=== PATIENT | male | born 1945 | race Caucasian/White ===

== ENCOUNTER → 2017-01-21 | Outpatient (CLI) | payer BC ==
[2017-01-21 18:15] LABS: ALT/SGPT 35 U/L (12-78); AST/SGOT 24 U/L (15-37); BLOOD UREA NITROGEN 9 mg/dl (7-18); BUN/CREATININE RATIO 11.7 (10-20); CALCIUM 9.3 mg/dl (8.5-10.1); CARBON DIOXIDE 30 mmol/L (21-32); CHLORIDE 100 mmol/L (98-107); CREATININE 0.81 mg/dl (0.60-1.40); GLUCOSE 85 mg/dl (70-99); HDL CHOLESTEROL 44 mg/dl; POTASSIUM 3.8 mmol/L (3.5-5.1); SODIUM 139 mmol/L (136-145)
[2017-01-21 18:18] LABS: ALB/GLOB RATIO 1.1 (0.9-2); ALKALINE PHOSPHATASE 68 U/L (45-117); CHOLESTEROL 173 mg/dl (0-200); CHOLESTEROL/HDL RATIO 3.9; LDL CHOLESTEROL CALCULATED 63 mg/dl; TRIGLYCERIDES 328 mg/dl (0-150); VERY LOW DENSITY LIPOPROT CALC 66 mg/dl
== END | disposition home or self-care (01) ==
LOC: C.LABBFT 13:36
PROVIDERS: ATTEND Internal Medicine
DX: E78.5 Hyperlipidemia, unspecified (principal)

== ENCOUNTER → 2017-07-28 | Outpatient (CLI) | payer BC ==
[2017-07-28 12:20] LABS: BASO % 0.2 %; BASO ABS # 0.01 K/uL (0-0.2); COMPLETE YES; EOS % 1.4 %; HEMATOCRIT 47.4 % (42-52); IG% 0.2 %; LYMPH ABS # 1.37 K/uL (1.2-3.4); MEAN CELL VOLUME 96.7 fL (80-100); MEAN CORPUSCULAR HEMOGLOBIN 34.3 pg (25-34); MEAN CORPUSCULAR HGB CONC 35.4 g/dl (32-36); MEAN PLATELET VOLUME 10.7 fL (7.4-10.4); MONO % 14.7 %; NEUT % 51.5 %; PLATELET COUNT 138 K/uL (130-400); WHITE BLOOD COUNT 4.28 K/uL (4.8-10.8)
[2017-07-28 12:28] LABS: ALT/SGPT 27 U/L (12-78); AST/SGOT 24 U/L (15-37); BLOOD UREA NITROGEN 12 mg/dl (7-18); BUN/CREATININE RATIO 17.8 (10-20); CALCIUM 9.2 mg/dl (8.5-10.1); CARBON DIOXIDE 29 mmol/L (21-32); CHLORIDE 102 mmol/L (98-107); CHOLESTEROL 180 mg/dl (0-200); CREATININE 0.69 mg/dl (0.60-1.40); GLUCOSE 99 mg/dl (70-99); POTASSIUM 3.8 mmol/L (3.5-5.1); SODIUM 137 mmol/L (136-145); TRIGLYCERIDES 143 mg/dl (0-150); VERY LOW DENSITY LIPOPROT CALC 29 mg/dl
[2017-07-28 12:31] LABS: ALKALINE PHOSPHATASE 69 U/L (45-117); CHOLESTEROL/HDL RATIO 3.3; HDL CHOLESTEROL 55 mg/dl; LDL CHOLESTEROL CALCULATED 96 mg/dl
== END | disposition home or self-care (01) ==
LOC: C.LABBFT 08:40
PROVIDERS: ATTEND Internal Medicine
DX: I10 Essential (primary) hypertension (principal); D72.819 Decreased white blood cell count, unspecified; E78.5 Hyperlipidemia, unspecified

== ENCOUNTER 2022-07-31 09:59 | Observation (INO) ==
--- NOTE | 2022-07-31 10:26 | Emergency Department Note ---
History of Present Illness General Chief complaint: Abdominal Pain Stated complaint: ABDOMINAL PAIN Time Seen by Provider: 07/31/22 10:13 Source: patient History of Present Illness Provider complaint: Abdominal pain Onset (ago): day(s) 2 Location: abdomen and right Radiation: non-radiation Severity: moderate Pain Consistency: + constant Maximum Pain Intensity: 7 Quality: + sharp Relieved By: + none Exacerbated By: + movement Associated symptoms: no chest pain, no cough, no fever/chills, no headaches, no nausea/vomiting or no shortness of breath This is a 76-year-old male who presents with right-sided lower abdominal pain starting 2 days ago. He describes it as intermittently sharp. It is constant. He rates it a 7 out of 10 in severity. It is worse if he moves a certain way. He denies any associated fever or vomiting. He has had no black or bloody stools or diarrhea. He denies any prior history of abdominal surgery. He has had no cough or cold symptoms, chest discomfort or pain, shortness of breath, or urinary symptoms. He has not noticed any bulges in his groin. Home Medications Medication Instructions Recorded Confirmed Type multivitamin 1 tab PO QAM 10/18/18 06/19/22 History acetaminophen 500 mg tablet 500 - 1,000 mg PO DIRECTED PRN 11/05/19 06/19/22 History FEVER/PAIN losartan 50 mg-hydrochlorothiazide 1 tab PO DAILY #90 tabs 08/14/21 06/19/22 Rx 12.5 mg tablet escitalopram oxalate 5 mg tablet 5 mg PO DAILY #90 tabs 12/03/21 06/19/22 Rx pravastatin 20 mg tablet 20 mg PO DAILY #90 tabs 12/10/21 06/19/22 Rx meclizine 12.5 mg tablet See Rx Instructions PO QID PRN 04/22/22 06/19/22 Rx dizziness #30 tabs Allergies Allergy/AdvReac Type Severity Reaction Status Date / Time lisinopril Allergy Intermediate Cough Verified 06/19/22 09:00 simvastatin Allergy Unknown CAN'T Verified 06/19/22 09:00 REMEMBER Past Med/Surg History Medical History 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., 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 INTERVENTION) Depression Hearing deficit BILATERAL AIDES Hyperlipidemia Hypertension Surgical History History of cataract surgery (~10/26/18) RIGHT CATARACT: 2mg of versed and 100mcg of fentanyl was given without apparent complications History of left cataract surgery (~11/16/18) Hx of LASIK Family History Sister Stroke Mother Stroke Sister Stroke Shingles Father Lung disease Son Diabetes Denies family history of Ovarian cancer Prostate cancer Myocardial infarction Breast cancer Colorectal cancer Social History Smoking Status: Never smoker Tobacco Type: Smokeless Tobacco (Dip or Chew) Second Hand Exposure: No; Hx Alcohol Use: Yes Alcohol type: beer Alcohol Intake Frequency: 4 or More x per/Week Alcohol Intake Frequency Comment: 2-3 beers or shot of yasmine carla per day Hx Substance Use: No Preferred Language: Montserratian Communication Ability: Effective Visual Impairment: No Limitations Hearing Ability: Use of Hearing Aid Business Specialist Required: No Beliefs That Will Affect Care: None marital status: Current Living Situation: Spouse current occupational status: retired current occupation: used to work at [employer] Feels Safe at Home: Yes Childhood Exposure to Second-Hand Smoke: Yes Diet Comment: primarily gluten free due to his 's diet Dental Care, Regularly: No Physical Activity Frequency: Does not Exercise Seatbelt Use: always Sunscreen Use: No Assistive Devices: Denture - Upper, Glasses and Hearing Aid - Bilateral Review of Systems See HPI for pertinent positives & negatives. and A total of 10 systems reviewed and were otherwise negative Physical Exam Vital Signs Vital Signs - 24 hr 07/31/22 10:05 07/31/22 10:34 07/31/22 11:41 Temperature 36.9 C Temperature Source Temporal Artery Scan Pulse Rate 84 Pulse Rate [Radial] 61 Pulse Rhythm [Radial] Pulse Strength [Radial] Respiratory Rate 18 16 Respiratory Effort / Characteristics Non-Labored Spontaneous Respiratory Depth Normal Respiratory Pattern Regular Blood Pressure 114/76 Blood Pressure [Left Arm] 145/76 H Blood Pressure Mean 88 Blood Pressure Mean [Left Arm] 99 Blood Pressure Position [Left Arm] Lying Pulse Oximetry 93 94 Oxygen Delivery Method Room Air Room Air Room Air Sepsis Recent Fever Within 48 Hours No Sepsis New/Unexplained Change in Mental Status No Sepsis Action Taken by Nursing No Action Required 07/31/22 13:44 07/31/22 13:48 Temperature 37.5 C Temperature Source Oral Pulse Rate 69 Pulse Rate [Radial] 70 Pulse Rhythm [Radial] Regular Pulse Strength [Radial] Normal Respiratory Rate 16 18 Respiratory Effort / Characteristics Non-Labored Spontaneous Respiratory Depth Normal Respiratory Pattern Blood Pressure 136/73 Blood Pressure [Left Arm] 125/73 Blood Pressure Mean Blood Pressure Mean [Left Arm] 90 Blood Pressure Position [Left Arm] Sitting Pulse Oximetry 91 95 Oxygen Delivery Method Room Air Room Air Sepsis Recent Fever Within 48 Hours Sepsis New/Unexplained Change in Mental Status Sepsis Action Taken by Nursing Constitutional: Vital signs reviewed. Eyes: Pupils are equal round reactive to light. Conjunctiva are noninjected. ENT: Pharynx is clear without erythema or exudate. Mucous membranes are moist. Neck supple without meningeal signs. Respiratory: Clear to auscultation bilaterally. Breath sounds are equal bilaterally. Cardiovascular: Regular rate and rhythm. No rubs or gallops. GI: Soft, nondistended with right lower quadrant tenderness. No guarding. No right inguinal hernia. Negative Rovsing sign. Bowel sounds are present. Musculoskeletal: No peripheral edema. No lower extremity tenderness. Integumentary: No cyanosis. or jaundice. Neurological: The patient is awake and alert. No focal deficits except hard of hearing. Psychiatric: Normal affect. Not anxious appearing. Course Administered Medications Discontinued Medications Fentanyl Citrate (Fentanyl Citrate 100 Mcg/2 Ml Vial) 50 mcg IV NOW STA Stop: 07/31/22 13:11 Last Admin: 07/31/22 13:22 Dose: 50 mcg Documented By: SHERIF Piperacillin Sod/Tazobactam Sod (Zosyn) 4.5 gm in 120 mls @ 240 mls/hr IV NOW ONE Stop: 07/31/22 12:55 Last Infusion: 07/31/22 13:26 Dose: 0 mls/hr Documented By: Admin: 07/31/22 12:55 Dose: 240 mls/hr Documented By: LIZBET Ioversol (Optiray 300 100ml) 94 ml IV ONCE ONE Stop: 07/31/22 11:38 Last Admin: 07/31/22 11:38 Dose: 94 ml Documented By: PATRICK Ondansetron HCl (Ondansetron Inj 2 Mg/Ml 2 Ml Vial) 4 mg IV NOW STA Stop: 07/31/22 13:11 Last Admin: 07/31/22 13:22 Dose: 4 mg Documented By: SHERIF Medical Decision Making Differential Diagnosis Abdominal mass, appendicitis, perforation, abscess, IBS, pancreatitis Medical Records Attestation: I reviewed the patient's medical records. I did perform a limited focused review of portions of the patient's old chart o n the electronic medical record. The patient has had no recent pertinent visits to this hospital. Home Medications Current Medication List: was personally reviewed by me Laboratory Data Attestation: I reviewed the patient's lab results. Result diagrams: 07/31/22 10:30 07/31/22 10:30 Lab Results 07/31/22 07/31/22 07/31/22 Range/Units 10:30 10:30 10:30 WBC 12.64 H (4.8-10.8) K/ul RBC 4.64 (4.63-6.08) M/uL Hgb 15.8 (14.0-18.0) g/dl Hct 44.5 (40.1-51.0) % MCV 95.9 (80.0-100.0) fL MCH 34.1 H (25.0-34.0) pg MCHC 35.5 (32.0-36.0) g/dL RDW Std Deviation 42.2 (36.4-46.3) fL RDW Coeff of Val 12.2 (11.5-14.5) % Plt Count 133 (130-400) K/uL MPV 10.4 (9.4-12.4) fL Immature Gran % (Auto) 0.3 % Neut % (Auto) 75.7 % Lymph % (Auto) 9.8 % Wood[place] % (Auto) 13.9 % Eos % (Auto) 0.1 % Baso % (Auto) 0.2 % Neut # (Auto) 9.56 H (1.4-6.5) K/uL Lymph # (Auto) 1.24 (1.2-3.4) K/uL Woodward # (Auto) 1.76 H (0.24-0.82) K/uL Eos # (Auto) 0.01 (0-0.50) K/uL Baso # (Auto) 0.03 (0-0.2) K/uL Immature Gran # (Auto) 0.04 H (0.00-0.02) K/uL Sodium 131 L (136-145) mmol/L Potassium 3.7 (3.5-5.1) mmol/L Chloride 98 (98-107) mmol/L Carbon Dioxide 26 (21-32) mmol/L Anion Gap 7 (3-11) BUN 9 (6-23) mg/dl Creatinine 0.66 (0.6-1.4) mg/dl Est Cr Clr Drug Dosing 92.2 ml/min Est GFR ( Amer) 107.3 ml/min Est GFR (Non-Af Amer) 92.6 ml/min BUN/Creatinine Ratio 13.6 (10-20) Glucose 117 H (70-99(Fasting)) mg/dl Calcium 9.1 (8.5-10.1) mg/dl Total Bilirubin 2.4 H (0.2-1.0) mg/dl AST 16 (13-39) U/L ALT 12 (7-52) U/L Alkaline Phosphatase 49 (34-104) U/L Total Protein 6.4 (6.0-8.3) gm/dl Albumin 3.8 (3.4-5.0) gm/dl Globulin 2.6 (2.5-4.0) gm/dl Albumin/Globulin Ratio 1.5 (0.9-2) Lipase 12 (11-82) U/L Urine Color Urine Appearance (Clear) Urine pH (4.5-7.5) Ur Specific [place] (1.000-1.030) Urine Protein (Negative) Urine Glucose (UA) (Negative) Urine Ketones (Negative) Urine Blood (Negative) Urine Nitrite (Negative) Urine Bilirubin (Negative) Urine Urobilinogen (Negative) Ur Leukocyte Esterase (Negative) SARS-CoV-2, RNA, NAAT NEGATIVE (NEGATIVE) 07/31/22 Range/Units 11:50 WBC (4.8-10.8) K/ul RBC (4.63-6.08) M/uL Hgb (14.0-18.0) g/dl Hct (40.1-51.0) % MCV (80.0-100.0) fL MCH (25.0-34.0) pg MCHC (32.0-36.0) g/dL RDW Std Deviation (36.4-46.3) fL RDW Coeff of Val (11.5-14.5) % Plt Count (130-400) K/uL MPV (9.4-12.4) fL Immature Gran % (Auto) % Neut % (Auto) % Lymph % (Auto) % Woodward % (Auto) % Eos % (Auto) % Baso % (Auto) % Neut # (Auto) (1.4-6.5) K/uL Lymph # (Auto) (1.2-3.4) K/uL Woodward # (Auto) (0.24-0.82) K/uL Eos # (Auto) (0-0.50) K/uL Baso # (Auto) (0-0.2) K/uL Immature Gran # (Auto) (0.00-0.02) K/uL Sodium (136-145) mmol/L Potassium (3.5-5.1) mmol/L Chloride (98-107) mmol/L Carbon Dioxide (21-32) mmol/L Anion Gap (3-11) BUN (6-23) mg/dl Creatinine (0.6-1.4) mg/dl Est Cr Clr Drug Dosing ml/min Est GFR ( Amer) ml/min Est GFR (Non-Af Amer) ml/min BUN/Creatinine Ratio (10-20) Glucose (70-99(Fasting)) mg/dl Calcium (8.5-10.1) mg/dl Total Bilirubin (0.2-1.0) mg/dl AST (13-39) U/L ALT (7-52) U/L Alkaline Phosphatase (34-104) U/L Total Protein (6.0-8.3) gm/dl Albumin (3.4-5.0) gm/dl Globulin (2.5-4.0) gm/dl Albumin/Globulin Ratio (0.9-2) Lipase (11-82) U/L Urine Color Yellow Urine Appearance Clear (Clear) Urine pH 8.0 H (4.5-7.5) Ur Specific [place] 1.036 H (1.000-1.030) Urine Protein Negative (Negative) Urine Glucose (UA) Negative (Negative) Urine Ketones Negative (Negative) Urine Blood Negative (Negative) Urine Nitrite Negative (Negative) Urine Bilirubin Negative (Negative) Urine Urobilinogen Negative (Negative) Ur Leukocyte Esterase Negative (Negative) SARS-CoV-2, RNA, NAAT (NEGATIVE) Imaging Data Radiologist's Impression: Abdomen/Pelvis CT 07/31/22 10:[address] WITH IV CONTRAST CT DOSE: 344.87 mGy.cm HISTORY: Right lower quadrant abdominal pain. TECHNIQUE: Multiaxial CT images of the abdomen and pelvis were performed following the use of intravenous contrast. A dose lowering technique was utilized adhering to the principles of ALARA. COMPARISON STUDY: None. FINDINGS: There are few bibasilar linear densities consistent with subsegmental atelectasis. No pneumoperitoneum. No pneumatosis. 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 No fractures within the visualized osseous structures. The ascending thoracic aorta measures up to 4.7 cm in diameter. The heart is mildly enlarged. Tiny fat-containing umbilical hernia. There are few punctate gallstones. No gallbladder wall thickening. The liver demonstrates mild fatty change. The pancreas, spleen, and adrenal glands are unremarkable. The left kidney enhances normally. There are 2 subcentimeter hypodense lesions within the right kidney which are technically too small to characterize but statistically represent cysts. No hydronephrosis. Mild urothelial thickening within the mid to distal right ureter which is likely reactive. Mild bladder wall thickening likely due to chronic outlet obstruction from the enlarged prostate gland. The main portal vein is patent. Moderate calcified plaque within the tortuous but normal caliber abdominal aorta. No retroperitoneal lymphadenopathy. Colonic diverticulosis. No evidence for acute diverticulitis. Moderate well-formed stool seen within the colon. The appendix is distended and filled with fluid with thickening and enhancement of the wall as well as periappendiceal fat stranding. Findings are consistent with acute appendicitis. There appears to be an associated multilocular fluid collection at the expected location of the distal appendix with a few separate collections measuring up to 1.6 cm in diameter. These favor small multiloculated abscesses in the setting of a perforated appendicitis. No extraluminal gas identified at this time. An underlying mucocele could also a similar appearance but is considered less likely. IMPRESSION: 1. Acute appendicitis. There are few small peripheral enhancing fluid collections at the location of the distal appendix which measure up to 1.6 cm. This favors small multiloculated abscesses in the setting of a perforated acute appendicitis. An underlying mucocele could also have a similar appearance but is considered less likely. 2. Colonic diverticulosis. No evidence for acute diverticulitis. 3. Cholelithiasis. 4. Hepatic steatosis. 5. Aneurysmal dilatation of the ascending thoracic aorta measuring up to 4.7 cm in diameter. 6. Prostatomegaly. 7. Additional findings as described above. ACT 112: Negative or not required by law. Electronically signed by: Mane Serrano M.D. 07/31/2022 12:00 PM MDM Narrative I did evaluate the patient as noted above. The patient is presenting with right lower quadrant pain for the past 2 days. He is tender to the right lower quadrant. No inguinal hernias are noted. He declines any pain medication. IV access was established. I did place an order for continuous cardiac monitoring. The monitor showed normal sinus rhythm at a rate of 83 bpm. He was made NPO. I did order a urine analysis. I did order and review the patient's blood work as noted in the electronic medical record. His white blood cell count slightly elevated 12.6. He is not anemic or thrombocytopenic. CMP is remarkable for a sodium of 131. He does have chronic hyponatremia. His last sodium was 132 last month. Screening for COVID-19 is negative. I did order a CT of the abdomen and pelvis. I did review the images myself as well as the radiology report as described above. CT does demonstrate acute appendicitis with perforation and small multiloculated abscesses measuring up to 1.6 cm. He also has an abdominal aortic aneurysm and other incidental findings. I did treat the patient with Zosyn IV. I did discuss the test results with the patient and his . They were given a copy of the CT scan so that they can discuss further incidental findings with her PCP. I did treat the patient with IV fentanyl. I did discuss the case with the surgical service, Dr. Daniels. He was taken to the operating room for surgical management. Impression & Plan Acute appendicitis, Aneurysm of ascending aorta, Chronic hyponatremia Discharge Plan Visit Data Chief Complaint: Abdominal Pain Stated Complaint: ABDOMINAL PAIN ED Provider: Fitz Estrada Discharge Problem: Acute appendicitis, Aneurysm of ascending aorta, Chronic hyponatremia Patient Disposition: Being Evaluated by Surgeon Discharge Instructions Interventions: ED Discharge Assessment Last Done: 07/31/22 13:44 Forms Stand Alone Forms: My [facility] Protection Plus Prescriptions Prescriptions: No Action losartan-hydrochlorothiazide 50-12.5 mg tablet 1 tab PO DAILY Qty: 90 3RF Rx Instructions: for blood pressure pravastatin 20 mg tablet 20 mg PO DAILY Qty: 90 3RF meclizine 12.5 mg tablet See Rx Instructions PO QID PRN (Reason: dizziness) Qty: 30 2RF Rx Instructions: 1 or 2 tabs PO four times daily PRN; acetaminophen 500 mg tablet 500 - 1,000 mg PO DIRECTED PRN (Reason: FEVER/PAIN) escitalopram oxalate 5 mg tablet 5 mg PO DAILY Qty: 90 3RF multivitamin Tablet 1 tab PO QAM Referrals Referrals: Danny Tucker III, MD [Primary Care Provider] - : Acute appendicitis Qualifiers: Acute appendicitis type: with localized peritonitis Appendicitis gangrene presence: without gangrene Appendicitis perforation presence: with perforation Appendicitis abscess presence: with abscess Qualified Code(s): K35.33 - Acute appendicitis with perforation and localized peritonitis, with abscess
[2022-07-31 11:01] LABS: Hematocrit (blood only) 44.5 % (40.1-51.0); Hemoglobin 15.8 g/dl (14.0-18.0); Mean Corpuscular Hemoglobin 34.1 pg (25.0-34.0); Mean Corpuscular Hgb Conc 35.5 g/dL (32.0-36.0); Mean Corpuscular Volume 95.9 fL (80.0-100.0); Mean Platelet Volume 10.4 fL (9.4-12.4); Platelet Count 133 K/uL (130-400); RDW Coefficient of Variation 12.2 % (11.5-14.5); RDW Standard Deviation 42.2 fL (36.4-46.3); Red Blood Count 4.64 M/uL (4.63-6.08); White Blood Count 12.64 K/ul (4.8-10.8)
[2022-07-31 11:10] LABS: Basophils # (auto) 0.03 K/uL (0-0.2); Basophils % (auto) 0.2 %; Eosinophils # (auto) 0.01 K/uL (0-0.50); Eosinophils % (auto) 0.1 %; Immature Granulocytes # (auto) 0.04 K/uL (0.00-0.02); Immature Granulocytes % (auto) 0.3 %; Lymphocytes # (auto) 1.24 K/uL (1.2-3.4); Lymphocytes % (auto) 9.8 %; Monocytes # (auto) 1.76 K/uL (0.24-0.82); Monocytes % (auto) 13.9 %; Neutrophils # (auto) 9.56 K/uL (1.4-6.5); Neutrophils % (auto) 75.7 %
[2022-07-31 11:18] LABS: Albumin Globulin Ratio 1.5 (0.9-2); Albumin Level 3.8 gm/dl (3.4-5.0); BUN Creatinine Ratio 13.6 (10-20); Bilirubin,Total 2.4 mg/dl (0.2-1.0); Calcium 9.1 mg/dl (8.5-10.1); Creatinine Clr Calc Pharmacy 92.2 ml/min; Est GFR (African American) 107.3 ml/min; Est GFR (Non-African American) 92.6 ml/min; Globulin 2.6 gm/dl (2.5-4.0); Potassium 3.7 mmol/L (3.5-5.1); Total Protein 6.4 gm/dl (6.0-8.3)
[2022-07-31] MEDS ORDERED: OPTIRAY 300 100mL IV ONE (11:37)
--- NOTE | 2022-07-31 12:02 | CT Scan Report ---
ABDOMEN AND PELVIS CT WITH IV CONTRAST CT DOSE: 344.87 mGy.cm HISTORY: Right lower quadrant abdominal pain. TECHNIQUE: Multiaxial CT images of the abdomen and pelvis were performed following the use of intrave nous contrast. A dose lowering technique was utilized adhering to the principles of ALARA. COMPARISON STUDY: None. FINDINGS: There are few bibasilar linear densities consistent with subsegmental atelectasis. No pneum operitoneum. No pneumatosis. 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 No f ractures within the visualized osseous structures. The ascending thoracic aorta measures up to 4.7 cm in diameter. The heart is mildly enlarged. Tiny fat-containing umbilical hernia. There are few punct ate gallstones. No gallbladder wall thickening. The liver demonstrates mild fatty change. The pancrea s, spleen, and adrenal glands are unremarkable. The left kidney enhances normally. There are 2 subcen timeter hypodense lesions within the right kidney which are technically too small to characterize but statistically represent cysts. No hydronephrosis. Mild urothelial thickening within the mid to dista l right ureter which is likely reactive. Mild bladder wall thickening likely due to chronic outlet ob struction from the enlarged prostate gland. The main portal vein is patent. Moderate calcified plaque within the tortuous but normal caliber abdominal aorta. No retroperitoneal lymphadenopathy. Colonic diverticulosis. No evidence for acute diverticulitis. Moderate well-formed stool seen within the colo n. The appendix is distended and filled with fluid with thickening and enhancement of the wall as wel l as periappendiceal fat stranding. Findings are consistent with acute appendicitis. There appears to be an associated multilocular fluid collection at the expected location of the distal appendix with a few separate collections measuring up to 1.6 cm in diameter. These favor small multiloculated absce sses in the setting of a perforated appendicitis. No extraluminal gas identified at this time. An und erlying mucocele could also a similar appearance but is considered less likely. IMPRESSION: 1. Acute appendicitis. There are few small peripheral enhancing fluid collections at the location of the distal appendix which measure up to 1.6 cm. This favors small multiloculated abscesses in the set ting of a perforated acute appendicitis. An underlying mucocele could also have a similar appearance but is considered less likely. 2. Colonic diverticulosis. No evidence for acute diverticulitis. 3. Cholelithiasis. 4. Hepatic steatosis. 5. Aneurysmal dilatation of the ascending thoracic aorta measuring up to 4.7 cm in diameter. 6. Prostatomegaly. 7. Additional findings as described above. ACT 112: Negative or not required by law. Electronically signed by: Mane Serrano M.D. 07/31/2022 12:00 PM
[2022-07-31 12:09] LABS: Appearance Urine Clear (Clear); Bilirubin Urine Negative (Negative); Blood Urine Negative (Negative); Color Urine Yellow; Glucose Urine UA Negative (Negative); Ketones Urine Negative (Negative); Leukocyte Esterase Urine Negative (Negative); Nitrite Urine Negative (Negative); Protein Urine Negative (Negative); Specific Gravity Urine 1.036 (1.000-1.030); Urobilinogen Urine Negative (Negative)
[2022-07-31] MEDS ORDERED: PIPERACILLIN/TAZOBACTAM 4.5 GM/120 ML BAG IV ONE (12:26)
[2022-07-31] MEDS ORDERED: fentaNYL citrate 100 MCG/2 ML VIAL IV STA (13:10)
[2022-07-31] MEDS ORDERED: ONDANSETRON INJ 2 MG/ML 2 ML VIAL IV STA (13:10)
--- NOTE | 2022-07-31 13:24 | History & Physical Report ---
Date of Service July 31, 2022 Assessment & Plan (1) Acute appendicitis: Plan: Perforation with small abscess. Will plan for laparoscopic appendectomy, possible open. Zosyn was given in the ED. History of Present Illness Primary Care Provider: Danny Tucker MD 76 y/o male with abdominal pain that began 2 days ago. Increasing pain caused him to come to the ED. No previous abdominal surgery. No fevers or chills. Nausea, no vomiting. Allergies Allergy/AdvReac Type Severity Reaction Status Date / Time lisinopril Allergy Intermediate Cough Verified 06/19/22 09:00 simvastatin Allergy Unknown CAN'T Verified 06/19/22 09:00 REMEMBER Home Medications Medication Instructions Recorded Confirmed Type multivitamin 1 tab PO QAM 10/18/18 06/19/22 History acetaminophen 500 mg tablet 500 - 1,000 mg PO DIRECTED PRN 11/05/19 06/19/22 History FEVER/PAIN losartan 50 mg-hydrochlorothiazide 1 tab PO DAILY #90 tabs 08/14/21 06/19/22 Rx 12.5 mg tablet escitalopram oxalate 5 mg tablet 5 mg PO DAILY #90 tabs 12/03/21 06/19/22 Rx pravastatin 20 mg tablet 20 mg PO DAILY #90 tabs 12/10/21 06/19/22 Rx meclizine 12.5 mg tablet See Rx Instructions PO QID PRN 04/22/22 06/19/22 Rx dizziness #30 tabs Past Med/Surg History Medical History 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., NO SURGICAL INTERVENTION) Depression Hearing deficit BILATERAL AIDES Hyperlipidemia Hypertension Surgical History History of cataract surgery (~10/26/18) RIGHT CATARACT: 2mg of versed and 100mcg of fentanyl was given without apparent complications History of left cataract surgery (~11/16/18) Hx of LASIK Family History Sister Stroke Mother Stroke Sister Stroke Shingles Father Lung disease Son Diabetes Denies family history of Ovarian cancer Prostate cancer Myocardial infarction Breast cancer Colorectal cancer Social History Smoking Status: Never smoker Tobacco Type: Smokeless Tobacco (Dip or Chew) Second Hand Exposure: No; Hx Alcohol Use: Yes Alcohol type: beer Alcohol Intake Frequency: 4 or More x per/Week Alcohol Intake Frequency Comment: 2-3 beers or shot of yasmine carla per day Hx Substance Use: No Preferred Language: Kiswahili Communication Ability: Effective Visual Impairment: No Limitations Hearing Ability: Use of Hearing Aid Courtesy Clerk Required: No Beliefs That Will Affect Care: None marital status: Current Living Situation: Spouse current occupational status: retired current occupation: used to work at [employer] Feels Safe at Home: Yes Childhood Exposure to Second-Hand Smoke: Yes Diet Comment: primarily gluten free due to his 's diet Dental Care, Regularly: No Physical Activity Frequency: Does not Exercise Seatbelt Use: always Sunscreen Use: No Assistive Devices: Denture - Upper, Glasses and Hearing Aid - Bilateral Review of Systems Constitutional: no fever and no chills Respiratory: no cough and no dyspnea Cardiovascular: no chest pain and no dyspnea Gastrointestinal: + abdominal pain, + bloating and + nausea; no vomiting Physical Exam Constitutional: WD/WN, vitals as above Respiratory: normal respiratory effort, lungs clear to auscultation Cardiovascular: RRR, no murmur, no edema Gastrointestinal (Abdomen): Inspection/Auscultation: + abdomen distended (slight) Percussion/Palpation: + abdomen tender (RLQ), + guarding and abdomen soft Results & Data Results & Data ([facility]) Vital Signs (Past 12 Hours) Vital Signs Temp Pulse Pulse Resp BP BP Pulse Ox 07/31/22 11:41 61 16 145/76 H 94 07/31/22 10:34 07/31/22 10:05 36.9 C 84 18 114/76 93 O2 Del Method 07/31/22 11:41 Room Air 07/31/22 10:34 Room Air 07/31/22 10:05 Room Air Supervising Physician Co-Signing Physician Notes As per Luis Daniel heath The patient is about a 3-day history of abdominal pain and actually migrated towards right lower quadrant his insisted to come in and be evaluated CT scan found compatible with acute appendicitis possible small loculation possible abscess The CT scan raises possibility of mucocele this is interesting since I operated on his 17 years ago for the same pathology He had some they ate at 730 this morning and tolerated that well The abdomen softly distended he does have generalized guarding but significant rebound tenderness or right lower quadrant there are no hernias appreciated is a patient stated that the pain may have started when she was lifting some logs We will proceed with surgery laparoscopic appendectomy possible open risk and complication were explained to the patient and his and they would like to proceed accordingly He had an EKG about a year ago we will try to get another one preop although he has had no cardiac history All question answered PG Care Time/CCT Total # of Minutes Spent Total Time Spent with Patient: Total time spent is greater than 50% in coordination of care (as documented) at patient's floor/unit and/or counseling patient: Coding Level of Care Code None Diagnoses Acute appendicitis K35.80
[2022-07-31] MEDS ORDERED: SUCCINYLCHOLINE CHLORIDE 20 MG/ML 10 ML VIAL IV ONE (13:27)
[2022-07-31] MEDS ORDERED: GLYCOPYRROLATE 0.2 MG/ML VIAL ONE ×2 (13:28→14:35)
[2022-07-31] MEDS ORDERED: PROPOFOL IV EMULSION 10 MG/ML 20 ML VIAL IV ONE (13:28)
[2022-07-31] MEDS ORDERED: fentaNYL citrate 100 MCG/2 ML VIAL ONE ×2 (13:28→14:58)
[2022-07-31] MEDS ORDERED: ROCURONIUM BROMIDE 10 MG/ML 5 ML VIAL IV ONE (13:28)
[2022-07-31] MEDS ORDERED: ONDANSETRON INJ 2 MG/ML 2 ML VIAL ONE (13:28)
[2022-07-31] MEDS ORDERED: DEXAMETHASONE SOD INJ 4 MG/ML VIAL ONE (13:28)
[2022-07-31] MEDS ORDERED: SUGAMMADEX SODIUM 200 MG/2 ML VIAL IV ONE (13:50)
[2022-07-31] MEDS ORDERED: LIDOCAINE 1%/EPINEPHRINE 1:100,000 50 ML VIAL ONE (14:20)
[2022-07-31] MEDS ORDERED: ATROPINE SULFATE 0.1 MG/ML 10ML SYR IV PRN (14:41)
[2022-07-31] MEDS ORDERED: HYDROmorphone INJ 2 MG/ML SYR/VIAL IV PRN (14:41)
[2022-07-31] MEDS ORDERED: ePHEDrine sulfate 50 MG/ML AMP IV PRN (14:41)
[2022-07-31] MEDS ORDERED: ONDANSETRON INJ 2 MG/ML 2 ML VIAL IV PRN ×2 (14:41→17:47)
[2022-07-31] MEDS ORDERED: fentaNYL citrate 100 MCG/2 ML VIAL IV PRN (14:41)
--- NOTE | 2022-07-31 14:41 | Anesthesiology Consultation ---
Date of Service July 31, 2022 Assessment & Plan ASA [id number] Proposed Anesthesia Anesthesia Type: General Risk / Benefits Reviewed With: PT / POA / Parent / Guardian, Accepts Plan and Informed Consent Obtained History Surgery Operation Date: 07/31/22 11:20 Proposed Procedures p Laparoscopic Appendectomy Possible Open - Nasim Rick MD, FACS Height/Weight Height: 5 ft 9 in Weight: 78 kg Allergies Allergy/AdvReac Type Severity Reaction Status Date / Time lisinopril Allergy Intermediate Cough Verified 06/19/22 09:00 simvastatin Allergy Unknown CAN'T Verified 06/19/22 09:00 REMEMBER Medications Home Medications Medication Instructions Recorded Confirmed Last Taken multivitamin 1 tab PO QAM 10/18/18 06/19/22 02/10/21 acetaminophen 500 mg tablet 500 - 1,000 mg PO DIRECTED PRN 11/05/19 06/19/22 Unknown FEVER/PAIN losartan 50 mg-hydrochlorothiazide 1 tab PO DAILY #90 tabs 08/14/21 06/19/22 Unknown 12.5 mg tablet escitalopram oxalate 5 mg tablet 5 mg PO DAILY #90 tabs 12/03/21 06/19/22 Unknown pravastatin 20 mg tablet 20 mg PO DAILY #90 tabs 12/10/21 06/19/22 Unknown meclizine 12.5 mg tablet See Rx Instructions PO QID PRN 04/22/22 06/19/22 Unknown dizziness #30 tabs NPO Date Last Intake of Fluids: 07/31/22 Time Last Intake of Fluids: 08:00 Date Last Intake of Solids: 07/31/22 Time Last Intake of Solids: 08:00 Past Medical History Medical History 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., NO SURGICAL INTERVENTION) Depression Hearing deficit BILATERAL AIDES Hyperlipidemia Hypertension Exercise / Class Metabolic Activity II 4-5 Yardwork/Stairs/Walk up hill Past Family History Family History Sister Stroke Mother Stroke Sister Stroke Shingles Father Lung disease Son Diabetes Denies family history of Ovarian cancer Prostate cancer Myocardial infarction Breast cancer Colorectal cancer Past Surgical History Surgical History History of cataract surgery (~10/26/18) RIGHT CATARACT: 2mg of versed and 100mcg of fentanyl was given without apparent complications History of left cataract surgery (~11/16/18) Hx of LASIK Past Anesthesia History No Hx of Anesthesia Complications and No Family Hx of Anesthesia Complications History of PONV No Hx of PONV and No Hx of Motion Sickness Social History Smoking Status: Never smoker tobacco type: smokeless tobacco Hx Alcohol Use: Yes Alcohol type: beer alcohol intake frequency: a few times a week Hx Substance Use: No substance use type: does not use Review of Systems denies fever/cough/ colds/ chest pain/ SOB/ ROXANNE denies ROXANNE Physical Exam Vital Signs Last Vital Signs Temp 37.5 C 07/31/22 13:48 Pulse 70 07/31/22 13:48 Resp 18 07/31/22 13:48 BP 125/73 07/31/22 13:48 Pulse Ox 95 07/31/22 13:48 O2 Del Method 07/31/22 13:48 ENMT Mouth: no TMJ abnormality and no dentition abnormality Thyromental Distance: > or= 3.5 Finger Breadths Mallampati Class: II Neck + facial hair; neck extension not limited Respiratory normal respiratory effort; no respiratory distress Auscultation: lungs clear to auscultation bilaterally Cardiovascular Rate/Rhythm: regular rate and regular rhythm Neurologic moves all extremities Psychiatric Orientation: alert and oriented x 3 Testing Laboratory Results 07/31/22 10:30 07/31/22 10:30 Urine Color Yellow 07/31/22 11:50 Urine Appearance Clear (Clear) 07/31/22 11:50 Urine pH 8.0 (4.5-7.5) H 07/31/22 11:50 Ur Specific [place] 1.036 (1.000-1.030) H 07/31/22 11:50 Urine Protein Negative (Negative) 07/31/22 11:50 Urine Glucose (UA) Negative (Negative) 07/31/22 11:50 Urine Ketones Negative (Negative) 07/31/22 11:50 Urine Nitrite Negative (Negative) 07/31/22 11:50 Ur Leukocyte Esterase Negative (Negative) 07/31/22 11:50
[2022-07-31] MEDS ORDERED: PHENYLEPHRINE 100MCG/ML 5ML SYR ONE (14:54)
--- NOTE | 2022-07-31 16:01 | Post Operative Brief Note ---
PG Immediate Post Op with CF Date of Surgery July 31, 2022 Pre & Post Diagnosis Operation Date: 07/31/22 11:20 Pre-Op Diagnosis: Acute appendicitis Post-Op Diagnosis: Acute Ruptured appendicitis I identified the patient and participated in the time-out.: Yes Procedure Operation Date: 07/31/22 11:20 Actual Procedures p Laparoscopic Appendectomy and Abdominal washout(Not Applicable) - Nasim Rick MD, FACS Surgeon Nasim Rick MD, FACS Religion Instructor B ling heath Estimated Blood Loss 150 Findings Consistent with Post-Op Diagnosis Specimens Specimen Description: A. Appendix Culture 1. Appendix Culture Drains Star Drain (19 Israeli)
--- NOTE | 2022-07-31 16:27 | Operative Report ---
PG Post Operative Report Pre & Post Diagnosis Operation Date: 07/31/22 11:20 Pre-Op Diagnosis: Acute appendicitis Post-Op Diagnosis: Acute Ruptured appendicitis I identified the patient and participated in the time-out.: Yes Procedure Operation Date: 07/31/22 11:20 Actual Procedures p Laparoscopic Appendectomy and Abdominal washout(Not Applicable) - Nasim Rick MD, FACS The patient was brought into the operating theater supine position general endotracheal anesthesia the abdomen was prepped byline solution properly draped a timeout was had patient identified antibiotics on board this point we made an incision supraumbilically sufficient to accommodate a Veress needle followed by CO2 followed by 5 mm trocar followed by the camera point of entry no injury identified the video system was very bad could not identify specifically the from planes everything appeared to be red eventually we needed to change the system the meantime we placed a 5 mm trocar right upper quadrant I was able to then elevate the cecum and identified that the patient had a purulent exudate and the thickened appendix none and towards the pelvic brim this point on direct visualization I changed to 5 mm supraumbilical port to level millimeter on direct visualization then placed a 5 mm port in the left lower quadrant first use local anesthetic and using the needle we could see going to the abdomen and there was some oozing along the peritoneum therefore I chose another site where it appeared to be free of any vessels and using a 5 mm trocar we entered the had pretty amount of bleeding and appears to be from the rectus at this point I needed to increase the opening in the left lower quadrant made an incision approximately 3 cm or so went down open the fascia more elevated the fibers from the rectus abdominis and finding with some the one we were able to control the bleeding what appeared to be arterial bleeding from the most likely inferior epigastric collaterals we suture some of this 3-0 silk we then we were able to inspect that again once it appeared to be satisfactory as far as any active bleeding by placing the camera right upper quadrant port again and visualize intra-abdominal he there was no more evidence of any ongoing bleeding or any dripping or blood at this point on direct realization I elected to place the 5 mm trocar in the midline between the symphysis pubis and umbilical area with preemptive local analgesic then was able to entered and appeared to be without any obvious bleeding camera was then placed in the left lower quadrant and using larger grasper from the umbilical area in the right upper quadrant were able to elevate the base of the appendix that appeared to be fairly free of any major inflammation I created a window enough that I could use a purple stapler and elevated the appendix from the cecum was very prominent edematous was the mesentery to the appendix in fact anytime we dissected there was some purulent drainage easily appreciated I wanted to get some cultures of this but apparently we are out of the typical suction devices that can accommodate her like an strap and the devices that were using would not allow that this to be performed we then divided the mesentery using clips 10 mm 5 mm clip and we had a moderate amount of oozing throughout the mesentery everything seem to be very fragile and falling apart we took a significant mount of time to try to control the bleeding at 1 point I thought we would need to do her morning scalpel but then we were able to appear to be controlled after moderate amount irrigation. Once we have freed completely from the mesoappendix the appendix was placed in an Endopouch and taken out through the umbilical port cultures will be taken right upper qu adrant again was suctioned out copiously had spent significant amount of time making sure we had no ongoing bleeding the terminal ileum was well away from where we were doing any clipping in the base where he was the staple the blue staple had minor oozing therefore we tapped this gently with the coag at 25 I elected then to drain the area using a 19 Star drain that we brought through the umbilical area to the right upper quadrant and placed down the pelvis and the right counter attention to the skin edges with 2-0 silk suture at this point prior to doing that we have checked the supraumbilical and intra-abdominal trocar sites and no bleeding was appreciated these were all removed fascial stitch 0 Vicryl [id number] x2 from the supraumbilical area and also used fascial stitches in the left lower quadrant [id number] times three 2-0 Vicryl subcutaneously 4-0 Monocryl Steri-Strips applied procedure was tolerated well by the patient addendum approximately 150 cc of blood loss AddendumB Angélica heath was present throughout the procedure and helped the retraction exposure and wound closure Addendum after surgery I spoke with Kanwal his in the waiting area told him that we had some bleeding that the patient oozed quite a bit throughout the procedure and she informed me that the patient's sister has a bleeding problem but the patient has never had any surgery to to expose whether or not this is one of his problems we will get coagulation factors and also get von Willebrand's antigen test Surgeon Nasim Rick MD, FACS Office Services Coordinator Anthony heath Estimated Blood Loss 150 Findings Consistent with Post-Op Diagnosis Acute ruptured appendix with mesenteric abscess Specimens Appendix Culture and sensitivity of the appendix Drains 19. Star through the right upper quadrant positioned in the right gutter and pelvic area Complications Not having the appropriate suction device since they are backordered once and typically we use Indications Acute ruptured appendix Description of Procedure merda I attest to the content of the Intraoperative Record and any orders documented therein. Any exceptions are noted below.
--- NOTE | 2022-07-31 16:53 | Anesthesiology Progress Note ---
Date of Service July 31, 2022 Anesthesia Post Procedure Vital Signs Vital Signs: Temp Pulse Pulse Pulse Resp BP BP 07/31/22 16:40 88 20 113/70 07/31/22 16:50 89 18 146/83 H 07/31/22 16:30 93 H 20 120/69 07/31/22 16:20 93 H 16 139/76 07/31/22 16:17 36.4 C L 96 H 14 138/82 07/31/22 13:48 37.5 C 70 18 125/73 07/31/22 13:44 69 16 136/73 07/31/22 11:41 61 16 145/76 H 07/31/22 10:34 07/31/22 10:05 36.9 C 84 18 114/76 Pulse Ox O2 Del Method O2 Flow Rate 07/31/22 16:40 94 Nasal Cannula 2 07/31/22 16:50 94 Nasal Cannula 2 07/31/22 16:30 94 Nasal Cannula 2 07/31/22 16:20 94 Oxymask 3 07/31/22 16:17 95 Oxymask 6 07/31/22 13:48 95 Room Air 07/31/22 13:44 91 Room Air 07/31/22 11:41 94 Room Air 07/31/22 10:34 Room Air 07/31/22 10:05 93 Room Air Pain Intensity Right Lower Abdomen: Pain Intensity: 0 Transfer of Care Handoff Completed per policy Notes Mental Status: alert / awake / arousable Patient Amnestic to Procedure: Yes Nausea / Vomiting: adequately controlled Pain: adequately controlled Airway Patency, RR, SpO2: stable & adequate BP & HR: stable & adequate Hydration State: stable & adequate Anesthetic Complications: no major complications apparent and Pt Satisfied with anesthetic care Notes: The patient is awake and comfortable. His vital signs are stable.
[2022-07-31 17:21] LABS: INR 1.4 (0.9-1.1); Partial Thromboplastin Ratio 1.1; Partial Thromboplastin Time 30.9 Seconds (21.0-31.0); Prothrombin Time 14.4 Seconds (9.0-12.0)
[2022-07-31] MEDS ORDERED: MoRPHine SULFATE 2 MG/ML CARP IV PRN (17:47)
[2022-07-31] MEDS ORDERED: MoRPHine SULFATE 4 MG/ML 1 ML CARP\\VIAL IV PRN (17:47)
[2022-07-31] MEDS ORDERED: oxyCODONE/ACETAMINOPHEN 5mg/325mg TAB PO PRN (17:47)
--- NOTE | 2022-07-31 18:04 | Hospitalist Consultation ---
Date of Consultation July 31, 2022 Assessment & Plan (1) Acute appendicitis: Erasto Harris is a 76-year-old male with a past medical history of hypertension, hyperlipidemia, BPH, a sending aortic aneurysm, and chronic hyponatremia who presented with acute appendicitis and who is s/p lap appendectomy and abdominal washout 07/31/2022. We have been consulted for medication management. Acute appendicitis s/p lap appy; w/ intra/post-op oozing. Presented with leukocytosis to 12.64 Admitting INR 1.4, no history of anticoagulation. Trend CTA/P: Acute appendicitis, distal enhancing fluid collections measuring up to 1.6 cm consistent with multiloculated abscesses in the setting of perforated ac [place] appendicitis. Colonic diverticulosis without diverticulitis. Hepatic steatosis. Cholelithiasis. Aneurysmal dilation of the ascending thoracic aorta measuring up to 4.7 cm in diameter. Prostatomegaly S/p appendectomy and washout, care per primary team Continue antibiotics, currently on perioperative Zosyn - Oozing during surgery. Von Willebrand ordered. With sister with reported bleeding issue, unclear details. Vitamin K/APL-Ab pending. - INR 1.4, no anticoagulation. - No transaminitis, +hepatic steatosis Ascending thoracic aortic aneurysm 4.7 cm Aggressive blood pressure control Added low-dose metoprolol for blood pressure control Continue statin therapy, lipids pending. Increase potency if LDL greater than 70 Patient would likely benefit from addition of beta-jayant therapy if tolerated Recommend following with biannual/every [address]/MR Avoid all fluoroquinolones Discussed with patient. Current shoe use, cessation recommended. Past cigar use and secondhand smoke exposure Patient is with soft systolic murmur, no echo available. Ordered. +carotid duplex. Chronic hyponatremia with baseline sodium in 130s Sodium 131 on admission, trend, continue LR until oral intake adequate Urine sodium studies pending, if consistent with SIADH or sodium drops with fluids restrict to 1500 cc Hypertension On [employer] losartan 50 mg, hydrochlorothiazide 12.5 mg daily Hold hold losartanhydrochlorothiazide overnight, if creatinine remains at baseline may resume Hyperlipidemia Continue pravastatin 20 mg, lipids pending may increase potency as noted above Depression Continue Lexapro 5 mg p.o. daily Diet, DVT prophylaxis: Per primary team (2) Aneurysm of ascending aorta: (3) Chronic hyponatremia: (4) Depression: (5) Hypertension: (6) Hyperlipidemia: (7) BPH (benign prostatic hyperplasia): History of Present Illness Attending Physician: Nasim Rick MD, FACS History of Present Illness Erasto Harris is a 76-year-old male with a past medical history of hypertension, hyperlipidemia, BPH, a sending aortic aneurysm, and chronic hyponatremia who presented with acute appendicitis and who is s/p lap appendectomy and abdominal washout 07/31/2022. We have been consulted for medication management. Tigre is a 76-year-old male who developed right lower quadrant abdominal pain and who presented for lap appendectomy of a perforated appendix with abscess. He reports his pain is greatly improved and he has 1/10 pain at bedside postoperatively. IZABELA drain is intact and draining large amounts of serosanguineous material. He denies chest pain, chest pressure, shortness of breath, difficulty breathing, lightheadedness, dizziness, nausea, vomiting, diarrhea, constipation, fever, chills at time of bedside assessment. He does endorse to use, 1 pack lasts him about a week. Former cigar use and secondhand smoke exposure. Did discuss that his CT showed a thoracic aneurysm, which was not known to patient. Recommended smoking cessation, discussed avoidance of all fluoroquinolones in the future, and recommended surveillance at 6 months. He has not had any chest pain, or pain radiating between his shoulder blades. Is any history of lung and heart problems. Denies heart attacks. Denies other aneurysms or bleeding problems. Denies family history of aneurysms. Per surgical report large amount of oozing, pt with sister who has bleeding problem with unclear details Medical History: Reviewed Medications: Reviewed Surgical History: Reviewed Allergies: Reviewed Social History: Chew use as noted Code Status: Full code Allergies Allergy/AdvReac Type Severity Reaction Status Date / Time lisinopril Allergy Intermediate Cough Verified 06/19/22 09:00 simvastatin Allergy Unknown CAN'T Verified 06/19/22 09:00 REMEMBER Home Medications Medication Instructions Recorded Confirmed Type multivitamin 1 tab PO QAM 10/18/18 06/19/22 History acetaminophen 500 mg tablet 500 - 1,000 mg PO DIRECTED PRN 11/05/19 06/19/22 History FEVER/PAIN losartan 50 mg-hydrochlorothiazide 1 tab PO DAILY #90 tabs 08/14/21 06/19/22 Rx 12.5 mg tablet escitalopram oxalate 5 mg tablet 5 mg PO DAILY #90 tabs 12/03/21 06/19/22 Rx pravastatin 20 mg tablet 20 mg PO DAILY #90 tabs 12/10/21 06/19/22 Rx meclizine 12.5 mg tablet See Rx Instructions PO QID PRN 04/22/22 06/19/22 Rx dizziness #30 tabs Patient History Medical History 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., NO SURGICAL INTERVENTION) Depression Hearing deficit BILATERAL AIDES Hyperlipidemia Hypertension Surgical History History of cataract surgery (~10/26/18) RIGHT CATARACT: 2mg of versed and 100mcg of fentanyl was given without apparent complications History of left cataract surgery (~11/16/18) Hx of LASIK Family History Sister Stroke Mother Stroke Sister Stroke Shingles Father Lung disease Son Diabetes Denies family history of Ovarian cancer Prostate cancer Myocardial infarction Breast cancer Colorectal cancer Social History Smoking Status: Never smoker Tobacco Type: Smokeless Tobacco (Dip or Chew) Second Hand Exposure: No; Hx Alcohol Use: Yes Alcohol type: beer Alcohol Intake Frequency: 4 or More x per/Week Alcohol Intake Frequency Comment: 2-3 beers or shot of yasmine carla per day Hx Substance Use: No Preferred Language: Estonian Communication Ability: Effective Visual Impairment: No Limitations Hearing Ability: Use of Hearing Aid Sodium Methylate Operator Required: No Beliefs That Will Affect Care: None marital status: Current Living Situation: Spouse current occupational status: retired current occupation: used to work at [employer] Feels Safe at Home: Yes Childhood Exposure to Second-Hand Smoke: Yes Diet Comment: primarily gluten free due to his 's diet Dental Care, Regularly: No Physical Activity Frequency: Does not Exercise Seatbelt Use: always Sunscreen Use: No Assistive Devices: Denture - Upper, Glasses and Hearing Aid - Bilateral Review of Systems Review of Systems: All systems reviewed & are unremarkable except as noted in Subjective Physical Exam Physical Exam: General: A&Ox3. NAD. Cooperative. HEENT: Atraumatic, normocephalic. Vision and hearing grossly intact. Pulm: CTAB A&P. -wheezes, -rales, -rhonchi. Symmetrical chest rise. No increased work of breathing. No respiratory distress. Cardiac: RRR, soft systolic murmur. Radial pulses intact and symmetrical. Abdominal: Surgical incisions intact, scant amount of bleeding marked on surgical dressings. No surrounding erythema or saturation. Abdomen trace appropriate postsurgical tenderness overlying incisions, otherwise nontender without rebound. IZABELA drain in place draining serosanguineous material Extremities: Warm and dry, sensation soft touch intact in hands and feet without asymmetry. Results & Data Results & Data ([facility]) Vital Signs (Past 12 Hours) Vital Signs Temp Pulse Pulse Pulse Resp BP BP 07/31/22 17:10 89 18 150/90 H 07/31/22 17:00 36.5 C 91 H 20 151/89 H 07/31/22 16:40 88 20 113/70 07/31/22 16:50 89 18 146/83 H 07/31/22 16:30 93 H 20 120/69 07/31/22 16:20 93 H 16 139/76 07/31/22 16:17 36.4 C L 96 H 14 138/82 07/31/22 13:48 37.5 C 70 18 125/73 07/31/22 13:44 69 16 136/73 07/31/22 11:41 61 16 145/76 H 07/31/22 10:34 07/31/22 10:05 36.9 C 84 18 114/76 Pulse Ox O2 Del Method O2 Flow Rate 07/31/22 17:10 93 Nasal Cannula 2 07/31/22 17:00 93 Nasal Cannula 2 07/31/22 16:40 94 Nasal Cannula 2 07/31/22 16:50 94 Nasal Cannula 2 07/31/22 16:30 94 Nasal Cannula 2 07/31/22 16:20 94 Oxymask 3 07/31/22 16:17 95 Oxymask 6 07/31/22 13:48 95 Room Air 07/31/22 13:44 91 Room Air 07/31/22 11:41 94 Room Air 07/31/22 10:34 Room Air 07/31/22 10:05 93 Room Air PG Care Time/CCT Total # of Minutes Spent Total Time Spent with Patient: Total time spent is greater than 50% in coordination of care (as documented) at patient's floor/unit and/or counseling patient: Coding Level of Care Code 68588 Inpt Consult Level 4 Diagnoses Acute appendicitis K35.33 Acute appendicitis type: with localized peritonitis Appendicitis abscess presence: with abscess Appendicitis gangrene presence: without gangrene Appendicitis perforation presence: with perforation Aneurysm of ascending aorta I71.2 Chronic hyponatremia E87.1 Depression F32.A Hypertension I10 Hyperlipidemia E78.5 BPH (benign prostatic hyperplasia) N40.0 (1) Acute appendicitis Acute appendicitis type: with localized peritonitis Appendicitis abscess presence: with abscess Appendicitis gangrene presence: without gangrene Appendicitis perforation presence: with perforation Qualified Code(s): K35.33 - Acute appendicitis with perforation and localized peritonitis, with abscess
[2022-07-31] MEDS: LACTATED RINGER'S 1,000 ML IV SCH (19:15)
[2022-07-31] MEDS: PIPERACILLIN/TAZOBACTAM 3.375 GM in DEXTROSE 5% 100 ML IV SCH (19:50)
[2022-07-31] MEDS: oxyCODONE/ACETAMINOPHEN 5mg/325mg TAB PO PRN (20:33)
[2022-07-31] MEDS: METOPROLOL TARTRATE 25 MG TAB PO SCH (20:33)
[2022-08-01] MEDS: PIPERACILLIN/TAZOBACTAM 3.375 GM in DEXTROSE 5% 100 ML IV SCH ×3 (03:08→18:38)
[2022-08-01] MEDS: oxyCODONE/ACETAMINOPHEN 5mg/325mg TAB PO PRN ×2 (03:15→09:13)
[2022-08-01] MEDS: LACTATED RINGER'S 1,000 ML IV SCH ×2 (03:26→15:27)
--- NOTE | 2022-08-01 05:28 | Surgery Progress Note ---
Date of Service August 01, 2022 Assessment & Plan (1) Acute appendicitis: Plan: Status post laparoscopic appendectomy on 07/31/2022 (postop day #1) Continue n.p.o. status until abdominal exam improved and bowel function returns Continue IV fluid for hydration until oral intake is adequate Continue analgesics Continue antiemetics Continue IZABELA drain to bulb suction Continue antibiotics while in the hospital in the form of Zosyn this patient was noted to have a perforated appendix Continue SCDs for DVT prevention for the present time Admission and Anticipated Discharge Date Admission Date: July 31, 2022 Supervising Physician Co-Signing Physician Notes Resting comfortably extremely hard of hearing and hard to communicate Hemoglobin from this morning is pending Operative findings were discussed with the patient The Star drainage which was moderate yesterday reflects the volume of fluid that we used to washout the abdomen For now we will keep him on ice chips and water sips only Subjective Patient is resting comfortably in bed at the present time. He notes some abdominal tenderness near her surgical incisions but overall feels okay. He notes he does not have much of an appetite at the present time. No BM or flatus since surgery. He denies any nausea or vomiting. Physical Exam Gastrointestinal (Abdomen): Abdomen is noted to be mildly distended. Surgical incisions appear well approximated. Patient has appropriate tenderness near his surgical incisions. Abdomen is tympanic to percussion. IZABELA drain is in place draining serosanguineous fluid. Results & Data ([facility]) Vital Signs (Past 12 Hours) Vital Signs Temp Pulse Resp BP Pulse Ox O2 Del Method O2 Flow Rate 08/01/22 03:22 37.0 C 50 L 18 106/59 L 92 Room Air 07/31/22 23:00 37.3 C 65 18 119/68 94 Room Air 07/31/22 19:43 Nasal Cannula 2 07/31/22 20:25 38 C H 88 18 150/84 H 93 Nasal Cannula 1 07/31/22 19:25 37.8 C H 88 16 153/78 H 95 Nasal Cannula 07/31/22 18:25 37.5 C 90 14 142/79 H 95 Nasal Cannula 2 07/31/22 17:55 37.7 C H 93 H 14 137/72 94 Nasal Cannula 2 PG Care Time/CCT Total # of Minutes Spent Total Time Spent with Patient: Total time spent is greater than 50% in coordination of care (as documented) at patient's floor/unit and/or counseling patient: Coding Level of Care Code None Diagnoses Acute appendicitis K35.33 Acute appendicitis type: with localized peritonitis Appendicitis abscess presence: with abscess Appendicitis gangrene presence: without gangrene Appendicitis perforation presence: with perforation (1) Acute appendicitis Acute appendicitis type: with localized peritonitis Appendicitis abscess presence: with abscess Appendicitis gangrene presence: without gangrene Appendicitis perforation presence: with perforation Qualified Code(s): K35.33 - Acute appendicitis with perforation and localized peritonitis, with abscess
--- NOTE | 2022-08-01 06:39 | Ultrasound Report ---
BILATERAL CAROTID DOPPLER STUDY HISTORY: thoracic aortic aneurysm COMPARISON: None. TECHNIQUE: Real-time, grayscale, and color Doppler sonography of the carotid arteries was performed. Imaging reviewed in the transverse and longitudinal planes. All measurements were calculated based on NASCET criteria. FINDINGS: Antegrade flow is seen in the bilateral vertebral arteries. The peak systolic velocity within the right ICA is 69 cm/s. The right systolic ratio is 1.1. The peak systolic velocity within the left ICA is 63 cm/s. The left systolic ratio is 0.8. IMPRESSION: No hemodynamically significant stenosis seen within the carotid arteries. ACT 112: Negative or not required by law. Electronically signed by: Mane Serrano M.D. 08/01/2022 6:38 AM
[2022-08-01] MEDS: ESCITALOPRAM OXALATE 10 MG TAB PO SCH (09:11)
[2022-08-01] MEDS: METOPROLOL TARTRATE 25 MG TAB PO SCH ×2 (09:12→20:22)
[2022-08-01 09:22] LABS: Basophils # (auto) 0.01 K/uL (0-0.2); Basophils % (auto) 0.1 %; Hematocrit (blood only) 39.3 % (40.1-51.0); Hemoglobin 13.9 g/dl (14.0-18.0); Immature Granulocytes # (auto) 0.04 K/uL (0.00-0.02); Immature Granulocytes % (auto) 0.3 %; Lymphocytes # (auto) 0.48 K/uL (1.2-3.4); Lymphocytes % (auto) 4.1 %; Mean Corpuscular Hgb Conc 35.4 g/dL (32.0-36.0); Mean Corpuscular Volume 96.1 fL (80.0-100.0); Mean Platelet Volume 10.3 fL (9.4-12.4); Monocytes # (auto) 1.12 K/uL (0.24-0.82); Monocytes % (auto) 9.6 %; Neutrophils # (auto) 9.96 K/uL (1.4-6.5); Neutrophils % (auto) 85.9 %; Platelet Count 121 K/uL (130-400); Platelet Estimate Decreased (Normal); RDW Coefficient of Variation 12.1 % (11.5-14.5); RDW Standard Deviation 42.2 fL (36.4-46.3); Red Blood Count 4.09 M/uL (4.63-6.08); White Blood Count 11.61 K/ul (4.8-10.8)
[2022-08-01 09:25] LABS: BUN Creatinine Ratio 22.7 (10-20); Calcium 8.4 mg/dl (8.5-10.1); Creatinine Clr Calc Pharmacy 92.2 ml/min; Est GFR (African American) 107.3 ml/min; Est GFR (Non-African American) 92.6 ml/min; Potassium 4.3 mmol/L (3.5-5.1)
--- NOTE | 2022-08-01 12:12 | XCELERA ---
[id number] \\[id number]}___[id number]
[2022-08-01] MEDS: SODIUM CHLORIDE 0.9% 1000ML 1,000 ML IV SCH (14:45)
--- NOTE | 2022-08-01 14:59 | Hospitalist Progress Note ---
Date of Service August 01, 2022 Assessment & Plan (1) Acute appendicitis: Plan: Erasto Harris is a 76-year-old male with a past medical history of hypertension, hyperlipidemia, BPH, a sending aortic aneurysm, and chronic hyponatremia who presented with acute appendicitis and who is s/p lap appendectomy and abdominal washout 07/31/2022. Acute appendicitis s/p lap appe; w/ intra/post-op oozing. Presented with leukocytosis to 12.64 Admitting INR 1.4, no history of anticoagulation. Trend CTA/P: Acute appendicitis, distal enhancing fluid collections measuring up to 1.6 cm consistent with multiloculated abscesses in the setting of perforated acute appendicitis. Colonic diverticulosis without diverticulitis. Hepatic steatosis. Cholelithiasis. Aneurysmal dilation of the ascending thoracic aorta measuring up to 4.7 cm in diameter. Prostatomegaly S/p appendectomy and washout, care per primary team Continue antibiotics, currently on perioperative Zosyn - Oozing during surgery. Von Willebrand ordered. With sister with reported bleeding issue, unclear details. Vitamin K/APL-Ab pending. - INR 1.4, no anticoagulation, was 1.2 back in 2020 - No transaminitis, +hepatic steatosis (2) Aneurysm of ascending aorta: Plan: 4.7 cm Aggressive blood pressure control Added low-dose metoprolol for blood pressure control Continue statin therapy, lipids pending. Increase potency if LDL greater than 70 Patient would likely benefit from addition of beta-jayant therapy if tolerated Recommend following with biannual/every [address]/MR Avoid all fluoroquinolones Discussed with patient. Current use, cessation recommended. Past cigar use and secondhand smoke exposure Patient is with soft systolic murmur. Echo checked, LV systolic fxn normal, no wma, borderline LVH, mild AR and TR, mod dilated ascending thoracic aorta (4.5cm). - Carotid duplex done, no HD significant stenosis. (3) Chronic hyponatremia: Plan: Sodium 131 on admission, hyponatremia dating back to 2019 Urine sodium studies pending, if consistent with SIADH or sodium drops with fluids restrict to 1500 cc - Na 130 today, suspect SIADH given fluid admin overnight with worsening Na - will change fluids to NSS at 80 ml/hr until diet advanced (4) Depression: Plan: Continue Lexapro 5 mg p.o. daily (5) Hypertension: Plan: On losartan 50 mg, hydrochlorothiazide 12.5 mg daily Hold hold losartanhydrochlorothiazide overnight, if creatinine remains at baseline may resume (6) Hyperlipidemia: Plan: Continue pravastatin 20 mg, lipids pending may increase potency as noted above (7) BPH (benign prostatic hyperplasia): Plan Advance diet as directed by primary service. Would stop Morphine and only utilize for breakthrough pain and use Percocet first line. Ultimately will leave up to primary service. Follow up blood work tomorrow AM. Can cap fluids when diet is advanced. Thank you for consult, will continue to follow. Plan d/w Dr. Wells. Admission and Anticipated Discharge Date Admission Date: July 31, 2022 Subjective Patient was seen on daily rounds this morning. He is pod#1 from lap appe with washout by Dr. Rick. Pt notes having some abdominal discomfort but denies n/v. He is passing flatus. No fever/chills, chest pain, or dyspnea. Still NPO, pt asking if he can have anything to eat. Review of Systems Review of Systems: All systems reviewed and are unremarkable except as noted in HPI and below. Denies fever, chills, fatigue, headache, nasal congestion, sore throat, cough, chest pain, shortness of breath, palpitations, orthopnea, PND, n/v/d, constipation, dysuria, hematuria, frequency, back pain, joint pain or swelling, easy bruising or bleeding, skin lesions or rashes. Physical Exam Physical Exam: GENERAL: 76 yo Well-developed, well-nourished WM. NAD. LUNGS: Clear to auscultation bilaterally. No W/R/R. CARDIOVASCULAR: Regular rate and rhythm. No M/G/R. No JVD. ABDOMEN: Soft, mild-mod distended and mildly ttp in RLQ. BS present in all 4 quad. IZABELA drain present. EXTREMITIES: No edema. Non-tender. Peripheral pulses +2/4. NEUROLOGIC: A&O x3. PSYCHIATRIC: Cooperative. Appropriate mood and affect. SKIN: Warm, dry, intact. No rashes or lesions. Results & Data Results & Data ([facility]) Vital Signs (Past 12 Hours) Vital Signs Temp Pulse Pulse Pulse Resp BP Pulse Ox 08/01/22 14:25 36.3 C L 56 L 20 114/64 91 08/01/22 12:00 37 C 54 L 18 118/67 92 08/01/22 09:10 48 L 08/01/22 06:59 36.4 C L 59 L 18 111/63 90 08/01/22 03:22 37.0 C 50 L 18 106/59 L 92 O2 Del Method 08/01/22 14:25 Room Air 08/01/22 12:00 Room Air 08/01/22 09:10 08/01/22 06:59 Room Air 08/01/22 03:22 Room Air Laboratory Results 08/01/22 08:26 08/01/22 08:26 PG Care Time/CCT Total # of Minutes Spent Total Time Spent with Patient: Total time spent is greater than 50% in coordination of care (as documented) at patient's floor/unit and/or counseling patient: Coding Level of Care Code 71630 Subseq Hosp Care Lvl 2 Diagnoses Acute appendicitis K35.33 Acute appendicitis type: with localized peritonitis Appendicitis abscess presence: with abscess Appendicitis gangrene presence: without gangrene Appendicitis perforation presence: with perforation Aneurysm of ascending aorta I71.2 Chronic hyponatremia E87.1 Depression F32.A Hypertension I10 Hyperlipidemia E78.5 BPH (benign prostatic hyperplasia) N40.0 (1) Acute appendicitis Acute appendicitis type: with localized peritonitis Appendicitis abscess presence: with abscess Appendicitis gangrene presence: without gangrene Appendicitis perforation presence: with perforation Qualified Code(s): K35.33 - Acute appendicitis with perforation and localized peritonitis, with abscess
[2022-08-02] MEDS: PIPERACILLIN/TAZOBACTAM 3.375 GM in DEXTROSE 5% 100 ML IV SCH ×3 (02:44→19:51)
[2022-08-02] MEDS: SODIUM CHLORIDE 0.9% 1000ML 1,000 ML IV SCH (02:46)
--- NOTE | 2022-08-02 05:26 | Surgery Progress Note ---
Date of Service August 02, 2022 Assessment & Plan (1) Acute appendicitis: Plan: Status post laparoscopic appendectomy on 07/31/2022 (postop day #2) Continue liquids for the present time. We will consider advancing diet further once improved bowel function noted Continue IV fluid for hydration until oral intake is adequate Continue analgesics Continue antiemetics Continue IZABELA drain to bulb suction Continue antibiotics while in the hospital in the form of Zosyn this patient was noted to have a perforated appendix. Operative cultures have grown out gram-negative rods with further identification pending Continue SCDs for DVT prevention for the present time Admission and Anticipated Discharge Date Admission Date: July 31, 2022 Supervising Physician Co-Signing Physician Notes As per Arnulfo Chicas physician machine operator assistant Patient would like to go home today I advised him to stay around till tomorrow making sure that he can tolerate a diet which will increase today On discharge we will continue the patient on antibiotic sensitivities noted from intraoperative cultures may be able to discharge him on Bactrim DS Subjective Patient is resting comfortably in bed. He denies significant abdominal pain at this time other than pain near surgical incisions. He notes he tolerated liquids last 24 hours. He is passing flatus. He does note some slight improvement of his appetite. Physical Exam Gastrointestinal (Abdomen): Surgical incisions appear to be healing well. IZABELA drain in place draining serosanguineous fluid. Abdomen is soft and nonrigid. A ppropriate tenderness noted to surgical incisions. Results & Data ([facility]) Vital Signs (Past 12 Hours) Vital Signs Temp Pulse Resp BP Pulse Ox O2 Del Method 08/01/22 23:11 36.6 C 50 L 18 107/60 90 Room Air 08/01/22 20:18 36.6 C 55 L 16 153/72 H 93 Room Air 08/01/22 19:02 36.8 C 61 19 107/59 L 90 Room Air PG Care Time/CCT Total # of Minutes Spent Total Time Spent with Patient: Total time spent is greater than 50% in coordination of care (as documented) at patient's floor/unit and/or counseling patient: Coding Level of Care Code None Diagnoses Acute appendicitis K35.33 Acute appendicitis type: with localized peritonitis Appendicitis abscess presence: with abscess Appendicitis gangrene presence: without gangrene Appendicitis perforation presence: with perforation (1) Acute appendicitis Acute appendicitis type: with localized peritonitis Appendicitis abscess presence: with abscess Appendicitis gangrene presence: without gangrene Appendicitis perforation presence: with perforation Qualified Code(s): K35.33 - Acute appendicitis with perforation and localized peritonitis, with abscess
[2022-08-02 07:57] LABS: Basophils # (auto) 0.01 K/uL (0-0.2); Basophils % (auto) 0.1 %; Echinocytes 1+; Eosinophils # (auto) 0.01 K/uL (0-0.50); Eosinophils % (auto) 0.1 %; Hematocrit (blood only) 36.7 % (40.1-51.0); Hemoglobin 12.6 g/dl (14.0-18.0); Immature Granulocytes # (auto) 0.03 K/uL (0.00-0.02); Immature Granulocytes % (auto) 0.4 %; Lymphocytes # (auto) 0.79 K/uL (1.2-3.4); Lymphocytes % (auto) 9.9 %; Mean Corpuscular Hemoglobin 33.8 pg (25.0-34.0); Mean Corpuscular Hgb Conc 34.3 g/dL (32.0-36.0); Mean Corpuscular Volume 98.4 fL (80.0-100.0); Mean Platelet Volume 10.6 fL (9.4-12.4); Monocytes # (auto) 0.81 K/uL (0.24-0.82); Monocytes % (auto) 10.1 %; Neutrophils # (auto) 6.35 K/uL (1.4-6.5); Neutrophils % (auto) 79.4 %; Platelet Count 120 K/uL (130-400); RDW Coefficient of Variation 12.2 % (11.5-14.5); RDW Standard Deviation 44.4 fL (36.4-46.3); Red Blood Count 3.73 M/uL (4.63-6.08)
[2022-08-02 08:01] LABS: BUN Creatinine Ratio 25.8 (10-20); Calcium 8.1 mg/dl (8.5-10.1); Creatinine Clr Calc Pharmacy 98.2 ml/min; Est GFR (African American) 110.1 ml/min; Potassium 4.1 mmol/L (3.5-5.1)
[2022-08-02] MEDS: ESCITALOPRAM OXALATE 10 MG TAB PO SCH (08:15)
[2022-08-02] MEDS: METOPROLOL TARTRATE 25 MG TAB PO SCH ×2 (08:16→19:52)
[2022-08-02] MEDS ORDERED: bisacodyL 10 MG SUPP PR STA (08:24)
[2022-08-02] MEDS: DOCUSATE SODIUM 100 MG CAP PO SCH ×2 (10:01→19:51)
--- NOTE | 2022-08-02 11:18 | Hospitalist Progress Note ---
Date of Service August 02, 2022 Assessment & Plan (1) Acute appendicitis: Plan: Erasto Harris is a 76-year-old male with a past medical history of hypertension, hyperlipidemia, BPH, a sending aortic aneurysm, and chronic hyponatremia who presented with acute appendicitis and who is s/p lap appendectomy and abdominal washout 07/31/2022. Acute appendicitis s/p lap appe; w/ intra/post-op oozing. Presented with leukocytosis to 12.64 Admitting INR 1.4, no history of anticoagulation. Trend CTA/P: Acute appendicitis, distal enhancing fluid collections measuring up to 1.6 cm consistent with multiloculated abscesses in the setting of perforated acute appendicitis. Colonic diverticulosis without diverticulitis. Hepatic steatosis. Cholelithiasis. Aneurysmal dilation of the ascending thoracic aorta measuring up to 4.7 cm in diameter. Prostatomegaly S/p appendectomy and washout, care per primary team Continue antibiotics, currently on perioperative Zosyn - Oozing during surgery. Von Willebrand ordered. With sister with reported bleeding issue, unclear details. Vitamin K/APL-Ab pending. - INR 1.4, no anticoagulation, was 1.2 back in 2020 - No transaminitis, +hepatic steatosis (2) Aneurysm of ascending aorta: Plan: 4.7 cm Aggressive blood pressure control Added low-dose metoprolol for blood pressure control Continue statin therapy, lipids pending. Increase potency if LDL greater than 70 Patient would likely benefit from addition of beta-jayant therapy if tolerated Recommend following with biannual/every [address]/MR Avoid all fluoroquinolones Discussed with patient. Current use, cessation recommended. Past cigar use and secondhand smoke exposure Patient is with soft systolic murmur. Echo checked, LV systolic fxn normal, no wma, borderline LVH, mild AR and TR, mod dilated ascending thoracic aorta (4.5cm). - Carotid duplex done, no HD significant stenosis. (3) Chronic hyponatremia: Plan: Sodium 131 on admission, hyponatremia dating back to 2019 Urine sodium studies pending, if consistent with SIADH or sodium drops with fluids restrict to 1500 cc - Na 130 today, suspect SIADH given fluid admin overnight with worsening Na - will change fluids to NSS at 80 ml/hr until diet advanced-Na better today at 134 which is his baseline (4) Depression: Plan: Continue Lexapro 5 mg p.o. daily (5) Hypertension: Plan: On losartan 50 mg, hydrochlorothiazide 12.5 mg daily Meds held, low normal on 08/01 - today bp 170/77 this AM w/o meds, will resume Losartan (don't feel that he needs the HCTZ) (6) Hyperlipidemia: Plan: Continue pravastatin 20 mg, lipids pending may increase potency as noted above (7) BPH (benign prostatic hyperplasia): Plan Advance diet as directed by primary service. Would stop Morphine and only utilize for breakthrough pain and use Percocet first line. Ultimately will leave up to primary service. Follow up blood work this morning reviewed. Will resume his Losartan 50mg daily. Ordered some stool softeners and a Bisacodyl suppository x1 now. From medicine standpoint, patient is stable for dc when ok'd by primary service. No further recommendations at this time, will sign off. Please feel free to contact with any questions/concerns. Thank you for allowing us to participate in the care of your patient. Plan d/w Dr. Wells. Admission and Anticipated Discharge Date Admission Date: July 31, 2022 Subjective Patient seen on daily rounds this morning. He is resting comfortably in bed. Passing flatus, no BM yet. He denies abd pain, only some mild discomfort at one incision site. No n/v. He is tolerating clear liquids. No fever/chills. Review of Systems Review of Systems: All systems reviewed and are unremarkable except as noted in HPI and below. Denies fever, chills, fatigue, headache, nasal congestion, sore throat, cough, chest pain, shortness of breath, palpitations, orthopnea, PND, n/v/d, constipation, dysuria, hematuria, frequency, back pain, joint pain or swelling, easy bruising or bleeding, skin lesions or rashes. Physical Exam Physical Exam: GENERAL: 76 yo Well-developed, well-nourished WM. NAD. LUNGS: Clear to auscultation bilaterally. No W/R/R. CARDIOVASCULAR: Regular rate and rhythm. No M/G/R. No JVD. ABDOMEN: Soft, mildly distended with some incisional tenderness to palp. BS present in all 4 quad. IZABELA drain present. EXTREMITIES: No edema. Non-tender. Peripheral pulses +2/4. NEUROLOGIC: A&O x3. PSYCHIATRIC: Cooperative. Appropriate mood and affect. SKIN: Warm, dry, intact. No rashes or lesions. Results & Data Results & Data ([facility]) Vital Signs (Past 12 Hours) Vital Signs Temp Pulse Resp BP Pulse Ox O2 Del Method 08/02/22 07:28 36.7 C 56 L 16 170/77 H 91 Room Air 08/01/22 23:11 36.6 C 50 L 18 107/60 90 Room Air Laboratory Results 08/02/22 07:08 08/02/22 07:08 PG Care Time/CCT Total # of Minutes Spent Total Time Spent with Patient: Total time spent is greater than 50% in coordination of care (as documented) at patient's floor/unit and/or counseling patient: Coding Level of Care Code 41420 Subseq Hosp Care Lvl 2 Diagnoses Acute appendicitis K35.33 Acute appendicitis type: with localized peritonitis Appendicitis abscess presence: with abscess Appendicitis gangrene presence: without gangrene Appendicitis perforation presence: with perforation Aneurysm of ascending aorta I71.2 Chronic hyponatremia E87.1 Depression F32.A Hypertension I10 Hyperlipidemia E78.5 BPH (benign prostatic hyperplasia) N40.0 (1) Acute appendicitis Acute appendicitis type: with localized peritonitis Appendicitis abscess presence: with abscess Appendicitis gangrene presence: without gangrene Appendicitis perforation presence: with perforation Qualified Code(s): K35.33 - Acute appendicitis with perforation and localized peritonitis, with abscess
[2022-08-02] MEDS: LOSARTAN POTASSIUM 50 MG TAB PO SCH (13:14)
[2022-08-02] MEDS: oxyCODONE/ACETAMINOPHEN 5mg/325mg TAB PO PRN ×2 (13:14→19:55)
[2022-08-03] MEDS: PIPERACILLIN/TAZOBACTAM 3.375 GM in DEXTROSE 5% 100 ML IV SCH (03:03)
--- NOTE | 2022-08-03 06:23 | Surgery Progress Note ---
Date of Service August 03, 2022 Assessment & Plan (1) Acute appendicitis: Plan: 08/03/22 POD#3 doing well Patient can be discharged today we will send him home on Augmentin 875 /125 1 twice daily Return to our office on Wednesday to have the drain removed No driving, no lifting greater than 10 pounds, may shower reapply dressing around the drain site as needed Status post laparoscopic appendectomy on 07/31/2022 (postop day #2) Continue liquids for the present time. We will consider advancing diet further once improved bowel function noted Continue IV fluid for hydration until oral intake is adequate Continue analgesics Continue antiemetics Continue IZABELA drain to bulb suction Continue antibiotics while in the hospital in the form of Zosyn this patient was noted to have a perforated appendix. Operative cultures have grown out gram-negative rods with further identification pending Continue SCDs for DVT prevention for the present time Admission and Anticipated Discharge Date Admission Date: July 31, 2022 Subjective Overall feels well was up voiding at the bedside without any issues stated tolerated diet yesterday and had a small bowel movement anxious to go home Physical Exam Physical Exam: Alert coherent No abdominal findings Star drainage serous slightly sanguinous the other trocar sites healing well Results & Data ([facility]) Vital Signs (Past 12 Hours) Vital Signs Temp Pulse BP Pulse Ox O2 Del Method 08/02/22 23:00 37.4 C 52 L 111/80 90 Room Air Laboratory Results Pending this morning PG Care Time/CCT Total # of Minutes Spent Total Time Spent with Patient: Total time spent is greater than 50% in coordination of care (as documented) at patient's floor/unit and/or counseling patient: Coding Level of Care Code None Diagnoses Acute appendicitis K35.33 Acute appendicitis type: with localized peritonitis Appendicitis abscess presence: with abscess Appendicitis gangrene presence: without gangrene Appendicitis perforation presence: with perforation (1) Acute appendicitis Acute appendicitis type: with localized peritonitis Appendicitis abscess presence: with abscess Appendicitis gangrene presence: without gangrene Appendicitis perforation presence: with perforation Qualified Code(s): K35.33 - Acute appendicitis with perforation and localized peritonitis, with abscess
[2022-08-03 06:33] LABS: BUN Creatinine Ratio 17.9 (10-20); Calcium 8.3 mg/dl (8.5-10.1); Creatinine Clr Calc Pharmacy 90.9 ml/min; Est GFR (African American) 106.7 ml/min; Potassium 3.7 mmol/L (3.5-5.1)
[2022-08-03 06:46] LABS: Hematocrit (blood only) 37.1 % (40.1-51.0); Hemoglobin 12.8 g/dl (14.0-18.0); Mean Corpuscular Hemoglobin 33.4 pg (25.0-34.0); Mean Corpuscular Hgb Conc 34.5 g/dL (32.0-36.0); Mean Corpuscular Volume 96.9 fL (80.0-100.0); Mean Platelet Volume 10.7 fL (9.4-12.4); Platelet Count 138 K/uL (130-400); RDW Coefficient of Variation 12.2 % (11.5-14.5); RDW Standard Deviation 43.6 fL (36.4-46.3); Red Blood Count 3.83 M/uL (4.63-6.08); White Blood Count 5.31 K/ul (4.8-10.8)
[2022-08-03 06:48] LABS: Basophils # (auto) 0.02 K/uL (0-0.2); Basophils % (auto) 0.4 %; Eosinophils # (auto) 0.12 K/uL (0-0.50); Eosinophils % (auto) 2.3 %; Immature Granulocytes # (auto) 0.01 K/uL (0.00-0.02); Immature Granulocytes % (auto) 0.2 %; Lymphocytes # (auto) 0.99 K/uL (1.2-3.4); Lymphocytes % (auto) 18.6 %; Monocytes # (auto) 0.74 K/uL (0.24-0.82); Monocytes % (auto) 13.9 %; Neutrophils # (auto) 3.43 K/uL (1.4-6.5); Neutrophils % (auto) 64.6 %
[2022-08-03] MEDS: LOSARTAN POTASSIUM 50 MG TAB PO SCH (07:54)
[2022-08-03] MEDS: DOCUSATE SODIUM 100 MG CAP PO SCH (07:54)
[2022-08-03] MEDS: ESCITALOPRAM OXALATE 10 MG TAB PO SCH (07:54)
[2022-08-03] MEDS: METOPROLOL TARTRATE 25 MG TAB PO SCH (07:55)
--- NOTE | 2022-08-03 11:50 | Discharge Summary ---
Date of Service August 03, 2022 Admission HPI Per Admitting Provider 76 y/o male with abdominal pain that began 2 days ago. Increasing pain caused him to come to the ED. No previous abdominal surgery. No fevers or chills. Nausea, no vomiting. Principal Diagnosis Ruptured appendicitis Ascending aortic aneurysm Discharge Exam Constitutional WD/WN, vitals as above Gastrointestinal (Abdomen) Inspection/Auscultation: + abdominal surgical incision (dry) and + abdominal surgical drain present; abdomen not distended Percussion/Palpation: abdomen soft Discharge Data Allergies Allergy/AdvReac Type Severity Reaction Status Date / Time lisinopril Allergy Intermediate Cough Verified 06/19/22 09:00 simvastatin Allergy Unknown CAN'T Verified 06/19/22 09:00 REMEMBER Consultations 07/31/22 17:47 Consult Hospitalist Routine Procedures Performed Operation Date: 07/31/22 11:20 Actual Procedures p Laparoscopic Appendectomy and Abdominal washout(Not Applicable) - Nasim Rick MD, FACS Ordered Studies 07/31/22 10:21 CT abd pelvis IV con only Stat 07/31/22 18:31 Carotid duplex [US carotid doppler BI] Routine Hospital Course (1) Acute appendicitis: 76 y/o male presented to the ER with abdominal pain. White count was 12,[address] was consistent with acute appendicitis and small abscess. He was taken to the operating room for laparoscopic appendectomy and transferred to the surgical floor. He was kept on IV Zosyn throughout admission. His white count normalized by POD 2. He also tolerated an advancing diet on day two. On POD 3 he was stable for discharge home with Star drain to be removed in clinic in two days. He was also started on metoprolol during admission by the hospitalists and should follow-up with his PCP in a few days. Total Time Total Time Spent Total Time Spent (In Minutes): 15 Discharge Plan Discharge Items Patient Disposition: Home - Self-Care Reason For Visit: ABDOMINAL PAIN Discharge Diagnosis: Appendicitis Activity: As commented below Lifting: No more than 10 pounds Bathing Comment: ok to shower Driving/Machine Use: Resume 3 days after discharge Non-emergency contact: Surgeon Call non-emergency contact if: you have any medication questions, you have a fe janak, your temperature is above 101.5 and your wound has increased redness Follow-up/Referrals: Opal Casey PA-C [Physician Washing Machine Installer] - 08/04/22 3:00 pm (You were started on a new blood pressure medication and should be seen by PCP within a week-please call to make an appt) Nasim Rick MD, FACS [Surgeon] - 08/05/22 1:00 pm (Please have the drain removed on Wednesday) Diet: Regular Addtl Attending Provider Instructions: Empty drain as needed, 2-3 times daily Pending Studies at Discharge: No Stand-Alone Forms: My [facility], Smoking Cessation Medications and DC Order Prescriptions: New metoprolol tartrate 25 mg Tablet 12.5 mg PO BID Qty: 60 0RF oxycodone-acetaminophen [Percocet] 5-325 mg tablet 1 - 2 tab PO Q4H PRN (Reason: pain, initial therapy, max 6 daily) Qty: 10 0RF sulfamethoxazole-trimethoprim [Bactrim DS] 800-160 mg tablet 1 tab PO BID 7 Days Qty: 14 0RF Continued losartan-hydrochlorothiazide 50-12.5 mg tablet 1 tab PO DAILY Qty: 90 3RF Rx Instructions: for blood pressure pravastatin 20 mg tablet 20 mg PO DAILY Qty: 90 3RF meclizine 12.5 mg tablet See Rx Instructions PO QID PRN (Reason: dizziness) Qty: 30 2RF Rx Instructions: 1 or 2 tabs PO four times daily PRN; acetaminophen 500 mg tablet 500 - 1,000 mg PO DIRECTED PRN (Reason: FEVER/PAIN) escitalopram oxalate 5 mg tablet 5 mg PO DAILY Qty: 90 3RF multivitamin Tablet 1 tab PO QAM Discharge Orders: Discharge Order (Routine); Ordered 08/03/22 Ordered By: Berny Lindsay Admission Data Admit Date/Time: 07/31/22 16:18 Attending Provider: Nasim Rick Admit Provider: Nasim Rick Primary Care Provider: Danny Tucker III Other Providers: Fitz Taylor Other Interventions: Discharge Summary Assessment (RN) Last Done: 08/03/22 09:15 Coding Level of Care Code D/C DAY MANAGEMENT <30 MINS Diagnoses Acute appendicitis K35.33 Acute appendicitis type: with localized peritonitis Appendicitis abscess presence: with abscess Appendicitis gangrene presence: without gangrene Appendicitis perforation presence: with perforation
--- NOTE | 2022-08-06 16:08 | Electrocardiogram Report ---
Test Reason : Blood Pressure : / mmHG Vent. Rate : 067 BPM Atrial Rate : 067 BPM P-R Int : 184 ms QRS Dur : 092 ms QT Int : 390 ms P-R-T Axes : 036 003 069 degrees QTc Int : 412 ms Poor data quality, interpretation may be adversely affected Normal sinus rhythm Nonspecific T wave abnormality Septal leads Abnormal ECG When compared with ECG of 10-FEB-2021 19:15, [place] interval has decreased Otherwise no significant change Confirmed by Chung Mckeon ([id number]) on 08/06/2022 4:08:10 PM Referred By: REFERRED SELF Confirmed By:Chung Mckeon
[2022-08-06 18:56] LABS: APTT 28 sec (23-32); F8 Activity 305 % normal (50-180); Ristocetin Cofactor 295 % normal (42-200); Von Willebrand Factor Antigen 303 % (50-217)
[2022-08-07 10:56] LABS: B2 Glycoprotein IgA <2.0 U/mL (<20.0); B2 Glycoprotein IgG <2.0 U/mL (<20.0); B2 Glycoprotein IgM <2.0 U/mL (<20.0); Phosphatidylserine IgG <10 U/mL (<10); Phosphatidylserine IgM <25 U/mL (<25); Vitamin K 102 pg/mL (130-1500)
--- NOTE | 2022-08-20 07:06 | Coding Query ---
A supporting diagnosis is required for the test/procedure performed on this patient in order for us to be reimbursed by the patient's insurance. Please provide a supporting diagnosis for the following test/procedure listed below next to the test name along with your signature. *If there is no additional diagnosis for this patient that would support the following test/procedure please document that below next to the test/procedure. Test(s)/Procedure(s) that require a supporting diagnosis: * [id number] CAROTID DOPPLER DIAGNOSIS: DATE OF SERVICE: 07/31/22 Provider Signature: Date: Thank you Berny Hermosillo [facility] Information Management Once completed, please kindly fax back to [phone] For questions please call [phone] [facility]
== END 2022-08-03 11:28 | disposition home or self-care (01) ==
LOC: ED 09:59 → 3N 13:44 → ASU 13:44 → 3N 16:18 → INTOOBSV 16:18 → 3N 08-03 08:11

== ENCOUNTER 2022-09-03 06:16 | Inpatient (IN) ==
--- NOTE | 2022-08-28 15:21 | Anesthesiology Consultation ---
Date of Service August 28, 2022 Assessment & Plan (1) Encounter for pre-operative examination: Chart Review Chart Review: Acceptable Risk for Surgery during appy was apparently "oozy" - postop von willebrands labs sent which did not indicate that was the reason - also his INR was 1.4 with no anticoagulation. may concider checking an INR DOS. History Surgery Operation Date: 09/03/22 08:50 Proposed Procedures p Laparoscopic Assisted Right Colon Resection, Possible Open - Nasim Rick MD, FACS Height/Weight Height: 5 ft 9 in Weight: 74.843 kg Allergies Allergy/AdvReac Type Severity Reaction Status Date / Time lisinopril Allergy Intermediate Cough Verified 08/28/22 13:18 simvastatin Allergy Unknown CAN'T Verified 08/28/22 13:18 REMEMBER Medications Home Medications Medication Instructions Recorded Confirmed Last Taken multivitamin 1 tab PO QAM 10/18/18 08/28/22 02/10/21 acetaminophen 500 mg tablet 500 - 1,000 mg PO DIRECTED PRN 11/05/19 08/28/22 Unknown FEVER/PAIN metoprolol tartrate 25 mg tablet 12.5 mg PO BID #60 tabs 08/03/22 08/28/22 Unknown meclizine 12.5 mg tablet See Rx Instructions PO QID PRN 08/10/22 08/28/22 Unknown dizziness #30 tabs ciprofloxacin HCl 500 mg tablet 500 mg PO .COMPLEX #2 tabs 08/25/22 08/28/22 Unknown (Cipro) metronidazole 500 mg tablet 500 mg PO .COMPLEX #3 tabs 08/25/22 08/28/22 Unknown escitalopram oxalate 5 mg tablet 5 mg PO QAM 08/28/22 08/28/22 Unknown pravastatin 20 mg tablet 20 mg PO QAM 08/28/22 08/28/22 Unknown Past Medical History Medical History 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., NO SURGICAL INTERVENTION) Aneurysm, ascending aorta unaware of size, has not yet followed up with anyone, was just found during appendix surgery a few weeks ago Anxiety BPH (benign prostatic hyperplasia) Cardiac murmur Depression Hearing deficit BILATERAL AIDES Hyperlipidemia Hypertension Vertigo Past Family History Family History Sister Stroke Mother Stroke Sister Stroke Shingles Father Lung disease Son Diabetes Denies family history of Ovarian cancer Prostate cancer Myocardial infarction Breast cancer Colorectal cancer Past Surgical History Surgical History History of cataract surgery (~10/26/18) RIGHT CATARACT: 2mg of versed and 100mcg of fentanyl was given without apparent complications History of laparoscopic appendectomy (07/31/22) Laparoscopic Appendectomy and Abdominal washout(Not Applicable) - Nasim Rick MD, FACS History of left cataract surgery (~11/16/18) History of tooth extraction Hx of LASIK Social History Smoking Status: Former smoker tobacco type: smokeless tobacco Do You Dip or Chew Tobacco: Yes (advised npo status) Hx Alcohol Use: Yes Alcohol type: beer and hard liquor alcohol intake frequency: 0-2 drinks per day Hx Substance Use: No substance use type: does not use Testing Laboratory Results Laboratory Tests 07/31/22 08/03/22 08/03/22 16:44 05:15 05:15 Hgb 12.8 L Plt Count 138 INR 1.4 H Potassium 3.7 Creatinine 0.67 Electrocardiogram Date: 07/31/22 Findings: + NSR @ (67) and + NSST changes Echocardiogram Date: 08/01/22 LV Function: normal Valvular Disease: + AI (Mild) mild TR
[~2022-09-03 06:16] MED LIST: LR 15ML/HR IV SCH
[2022-09-03 07:47] LABS: INR 1.3 (0.9-1.1); Partial Thromboplastin Time 27.5 Seconds (21.0-31.0); Prothrombin Time 13.8 Seconds (9.0-12.0)
--- NOTE | 2022-09-03 09:50 | History & Physical Bridge Note ---
Date of Service September 03, 2022 History & Physical Bridge Note I have examined the patient, reviewed the History & Physical and in the interval since the performance of the History & Physical I have noted the following changes of clinical significance: no changes noted pt marked all question answered at bedside states did not take last dose of antibiotic bowel prep
[2022-09-03] MEDS ORDERED: ONDANSETRON INJ 2 MG/ML 2 ML VIAL IV PRN ×2 (09:52→14:24)
[2022-09-03] MEDS ORDERED: HYDROmorphone INJ 2 MG/ML SYR/VIAL IV PRN (09:52)
[2022-09-03] MEDS ORDERED: ePHEDrine sulfate 50 MG/ML AMP IV PRN (09:52)
[2022-09-03] MEDS ORDERED: ATROPINE SULFATE 0.1 MG/ML 10ML SYR IV PRN (09:52)
[2022-09-03] MEDS ORDERED: BUPIVACAINE 0.5 % 5 MG/1 ML MPF 30ML VIAL ONE (09:57)
[2022-09-03] MEDS ORDERED: fentaNYL citrate 100 MCG/2 ML VIAL ONE ×2 (10:05→11:05)
[2022-09-03] MEDS ORDERED: PROPOFOL IV EMULSION 10 MG/ML 20 ML VIAL IV ONE (10:05)
[2022-09-03] MEDS ORDERED: LIDOCAINE 2% MPF LOCAL 5 ML VIAL INFIL ONE (10:41)
[2022-09-03] MEDS ORDERED: DEXAMETHASONE SOD INJ 4 MG/ML VIAL ONE (10:41)
[2022-09-03] MEDS ORDERED: ONDANSETRON INJ 2 MG/ML 2 ML VIAL ONE (10:41)
[2022-09-03] MEDS ORDERED: ROCURONIUM BROMIDE 10 MG/ML 5 ML VIAL IV ONE ×3 (10:41→11:31)
[2022-09-03] MEDS ORDERED: HYDROmorphone INJ 1 MG/ML SYRINGE ONE (10:43)
[2022-09-03] MEDS ORDERED: cefOXitin 2,000 MG in DEXTROSE 5% 50 ML IV ONE (10:50)
[2022-09-03] MEDS ORDERED: GLYCOPYRROLATE 0.2 MG/ML VIAL ONE ×2 (11:19→12:09)
[2022-09-03] MEDS ORDERED: PHENYLEPHRINE 100MCG/ML 5ML SYR ONE (12:06)
[2022-09-03] MEDS ORDERED: NEOSTIGMINE METHYLSULFATE 1 MG/ML 10ML VIAL ONE (12:09)
--- NOTE | 2022-09-03 12:23 | Post Operative Brief Note ---
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 Right colon, long suture middle colic Drains Saenz Catheter and Anthony Drain (1/4 inch)
[2022-09-03] MEDS ORDERED: SUGAMMADEX SODIUM 200 MG/2 ML VIAL IV ONE (12:47)
--- NOTE | 2022-09-03 12:54 | Operative Report ---
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 I identified the patient and participated in the time-out.: Yes Procedure Operation Date: 09/03/22 08:50 Actual Procedures p Laparoscopy, Open extended right Radical Colectomy(Not Applicable) - Nasim Rick MD, FACS The patient was brought into the operating theater general endotracheal anesthesia Saenz catheter was placed the abdomen was prepped byline solution properly draped systemic antibiotics on board patient identified a timeout was had this point we made an incision approximately 2 inches above the transverse incision in the supraumbilical area that was used for the laparoscopic appendectomy placed left Veress needle CO2 insufflated to 15 mmHg 5 Tinoco trocar scope followed and identified there was no obvious implants in the anterior abdominal wall or peritoneal signs of the cul-de-sac there is no obvious implants on liver both lobes or the diaphragmatic area. There was some adhesions small bowel to the anterior abdominal wall in the right lower quadrant most likely reflects the acute appendicitis ruptured that he had missed a few weeks ago this point we will place a 5 mm right upper quadrant trocar site with preemptive local analgesic and release these 2 loops of small bowel to the anterior abdominal wall making sure not to enter the bowel. Inspected the area thought the patient would be best served to do an open extended right right colectomy therefore the incision was extended inferior to the umbilical area going transversely through the previous incision for lap arminda done and up in the midline entering the 5 mm incision we initially went in incidence larger incision on through subcutaneous tissue release electrocautery easily entered the fascia using Bhavik clamps were able to elevate the abdominal wall and we opened up the fascia superiorly inferiorly sufficient enough that we were able to mobilize the right colon terminal ileum all the way to the right of middle colic artery the patient had generalized oozing throughout the procedure and ACT as we dissected the right gutter bluntly mostly patient basically loose from every little movement and this was characteristic of what happened whenever his laparoscopic appendectomy he had generalized bruising as if he were anticoagulated although we worked him up after surgery and there was no evidence of any von Willebrand's or other process that could account for it the the postop work-up after appendectomy was initiated by the patient sounds that his sister bled quite easily and once we have delivered pretty much the terminal ileum and divided the mesentery to the transverse colon right of the middle colic were able then bring the side into the outside the abdomen dividing the mesentery's corner to the root of the mesentery ligated with 2-0 silk we stayed away from the duodenum that could easily be appreciated at this point we divided the terminal ileum using a ABRAN approximately 6 inches from the ileocecal well and divided similarly another application to the right of middle colic. The 2 specimen was removed we then at this point closed the mesentery making sure that before the anastomosis that was complete to avoid any rotation we noticed that the terminal ileum the area was resected proximal a little dusky therefore we resected another 2 inches using another application of the ABRAN to staple line were oversewn with 3-0 silk suture then we did a [id number] anastomosis using 3-0 silk outer layer 3-0 chromic inner layer. We made sure that the apical points of the anastomosis we took bites of the small bowel and colon to avoid any tension on those areas. The anastomosis was checked for patency where finger was quite patent we then closed more the mesentery avoiding any opening. And irrigated the abdomen copiously checked hemostasis and appears satisfactory we did not put an NG tube in a prior to closing we ran the rest of the small bowel the wound then was closed using #0 PDS starting 1 cephalad 1 code that time the middle subcutaneous tissue was drained with quarter inch Anthony attention was both poles of the incision 3-0 silk suture yariel for skin edges dressing was applied procedure was tolerated well by the patient estimate blood loss approximately 200 cc Addendum Anthony Hartley was present throughout the procedure and helped the retraction exposure and wound closure Addendum after the procedure I spoke with his Maria Eugenia in the waiting area Surgeon Nasim Rick MD, FACS Fire Prevention Engineer anthony hartley Estimated Blood Loss 200 Findings Consistent with Post-Op Diagnosis No obvious metastatic carcinoma Specimens Right radical colectomy Drains Quarter-inch [place] and subcu to Indications Adenocarcinoma ruptured appendix approximately 3 weeks ago proceed with right colon resection for possible lymph node staging Description of Procedure merda I attest to the content of the Intraoperative Record and any orders documented therein. Any exceptions are noted below.
[2022-09-03] MEDS: fentaNYL citrate 100 MCG/2 ML VIAL IV PRN ×2 (13:01→13:11)
--- NOTE | 2022-09-03 13:53 | Anesthesiology Progress Note ---
Date of Service September 03, 2022 Anesthesia Post Procedure Vital Signs Vital Signs: Temp Pulse Pulse Resp BP Pulse Ox O2 Del Method 09/03/22 13:30 69 12 116/84 95 Nasal Cannula 09/03/22 13:20 36.8 C 72 12 118/80 93 Nasal Cannula 09/03/22 13:10 75 14 136/90 93 Nasal Cannula 09/03/22 13:00 67 16 156/87 H 95 Oxymask 09/03/22 12:50 66 12 148/83 H 96 Oxymask 09/03/22 12:41 36.6 C 69 16 128/95 94 Oxymask 09/03/22 06:54 37.1 C 51 L 20 160/81 H 94 Room Air O2 Flow Rate 09/03/22 13:30 2 09/03/22 13:20 2 09/03/22 13:10 2 09/03/22 13:00 6 09/03/22 12:50 6 09/03/22 12:41 6 09/03/22 06:54 Pain Intensity Abdomen: Pain Intensity: 4 Transfer of Care Handoff Completed per policy Notes Mental Status: alert / awake / arousable and participated in evaluation Patient Amnestic to Procedure: Yes Nausea / Vomiting: adequately controlled Pain: adequately controlled Airway Patency, RR, SpO2: stable & adequate BP & HR: stable & adequate Hydration State: stable & adequate Anesthetic Complications: no major complications apparent and Pt Satisfied with anesthetic care
[2022-09-03] MEDS ORDERED: HYDROmorphone INJ 0.5 MG/0.5 ML SYR IV PRN (14:24)
[2022-09-03] MEDS: LACTATED RINGER'S 1,000 ML IV SCH ×2 (15:39→23:20)
[2022-09-03] MEDS: ACETAMINOPHEN 1,000 MG/100 ML VIAL IV SCH ×2 (15:39→23:20)
[2022-09-03] MEDS: cefOXitin 2,000 MG in DEXTROSE 5% 50 ML IV SCH ×2 (18:48→23:41)
[2022-09-03] MEDS: HYDROmorphone INJ 0.5 MG/0.5 ML SYR IV PRN (21:25)
[2022-09-03] MEDS: METOPROLOL TARTRATE 25 MG TAB PO SCH (22:30)
[2022-09-04] MEDS: HYDROmorphone INJ 0.5 MG/0.5 ML SYR IV PRN ×3 (04:13→11:44)
[2022-09-04] MEDS: cefOXitin 2,000 MG in DEXTROSE 5% 50 ML IV SCH ×2 (05:30→11:47)
[2022-09-04] MEDS: ACETAMINOPHEN 1,000 MG/100 ML VIAL IV SCH ×3 (06:21→22:31)
--- NOTE | 2022-09-04 07:45 | Surgery Progress Note ---
Date of Service September 04, 2022 Assessment & Plan (1) Carcinoma of appendix: Plan: Operative findings were discussed with the patient At this point we will start him on clear liquids slowly advance till his GI function returns we will DC Saenz increase activity Admission and Anticipated Discharge Date Admission Date: September 03, 2022 Subjective No major issues overnight no nausea hungry Had some oozing from the incision nurses reinforce the dressing Physical Exam Physical Exam: Alert coherent no distress Oral mucosa moist The abdomen minimally distended dressing was removed some clotted blood noted on both sides of the incision at the Anthony drain sites mild ecchymosis abdominal wall Results & Data ([facility]) Vital Signs (Past 12 Hours) Vital Signs Temp Pulse Resp BP Pulse Ox O2 Del Method O2 Flow Rate 09/04/22 02:58 36.7 C 54 L 16 131/60 90 Room Air 09/03/22 22:03 37.2 C 71 16 125/68 90 Room Air 09/03/22 20:51 Nasal Cannula 2 Laboratory Results Pending PG Care Time/CCT Total # of Minutes Spent Total Time Spent with Patient: Total time spent is greater than 50% in coordination of care (as documented) at patient's floor/unit and/or counseling patient: Coding Level of Care Code None Diagnoses 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
[2022-09-04] MEDS: PRAVASTATIN SOD 20 MG TAB PO SCH (08:06)
[2022-09-04] MEDS: ESCITALOPRAM OXALATE 10 MG TAB PO SCH (08:06)
[2022-09-04] MEDS: LACTATED RINGER'S 1,000 ML IV SCH ×3 (08:06→22:31)
[2022-09-04] MEDS: METOPROLOL TARTRATE 25 MG TAB PO SCH ×2 (08:09→21:14)
[2022-09-04 08:12] LABS: Hematocrit (blood only) 34.6 % (40.1-51.0); Hemoglobin 12.2 g/dl (14.0-18.0); Mean Corpuscular Hemoglobin 33.7 pg (25.0-34.0); Mean Corpuscular Hgb Conc 35.3 g/dL (32.0-36.0); Mean Corpuscular Volume 95.6 fL (80.0-100.0); Platelet Count 97 K/uL (130-400); RDW Coefficient of Variation 12.1 % (11.5-14.5); RDW Standard Deviation 42.4 fL (36.4-46.3); Red Blood Count 3.62 M/uL (4.63-6.08); White Blood Count 8.29 K/ul (4.8-10.8)
[2022-09-04 08:23] LABS: BUN Creatinine Ratio 16.9 (10-20); Calcium 8.1 mg/dl (8.5-10.1); Creatinine Clr Calc Pharmacy 85.7 ml/min; Est GFR (African American) 104.2 ml/min; Est GFR (Non-African American) 89.9 ml/min; Potassium 3.6 mmol/L (3.5-5.1)
[2022-09-04 08:30] LABS: Basophils # (auto) 0.01 K/uL (0-0.2); Basophils % (auto) 0.1 %; Immature Granulocytes # (auto) 0.03 K/uL (0.00-0.02); Immature Granulocytes % (auto) 0.4 %; Lymphocytes % (auto) 8.4 %; Monocytes # (auto) 1.01 K/uL (0.24-0.82); Monocytes % (auto) 12.2 %; Neutrophils # (auto) 6.54 K/uL (1.4-6.5); Neutrophils % (auto) 78.9 %
--- NOTE | 2022-09-05 05:45 | Surgery Progress Note ---
Date of Service September 05, 2022 Assessment & Plan (1) Carcinoma of appendix: Plan: Status post right colectomy on 09/03/2022 (postop day #2) Continue clear liquids and IV fluids until patient has improved bowel function and his diet can be advanced and is noted to be reliable Continue analgesics Continue antiemetics Increase activity as able Consideration should be given to adding DVT prophylaxis Admission and Anticipated Discharge Date Admission Date: September 03, 2022 Supervising Physician Co-Signing Physician Notes As per Arnulfo Chicas physician health center assistant The abdomen is minimally distended incision without any drainage yariel intact Anthony sites without any drainage ecchymosis around the incision is resolving Hemoglobin stable Will start subcu heparin for DVT prophylaxis Subjective Patient is resting comfortably in bed. He does report some intermittent nausea. He reports he is passing flatus but has not had a bowel movement since surgery. He notes he does really not have much in the way of an appetite at this point. Physical Exam Gastrointestinal (Abdomen): Abdomen is noted to be slightly distended with hypoactive bowel sounds. Patient has appropriate pain near his incision. Results & Data ([facility]) Vital Signs (Past 12 Hours) Vital Signs Temp Pulse Resp BP Pulse Ox O2 Del Method 09/04/22 23:02 36.7 C 55 L 16 154/74 H 93 Room Air 09/04/22 21:12 55 L 162/75 H PG Care Time/CCT Total # of Minutes Spent Total Time Spent with Patient: Total time spent is greater than 50% in coordination of care (as documented) at patient's floor/unit and/or counseling patient: Coding Level of Care Code None Diagnoses 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
[2022-09-05] MEDS: ACETAMINOPHEN 1,000 MG/100 ML VIAL IV SCH ×3 (06:03→23:50)
[2022-09-05] MEDS: LACTATED RINGER'S 1,000 ML IV SCH ×3 (06:20→21:25)
[2022-09-05 07:56] LABS: BUN Creatinine Ratio 12.5 (10-20); Calcium 8.2 mg/dl (8.5-10.1); Creatinine Clr Calc Pharmacy 108.7 ml/min; Est GFR (African American) 114.8 ml/min; Est GFR (Non-African American) 99.1 ml/min; Potassium 3.4 mmol/L (3.5-5.1)
[2022-09-05 08:03] LABS: Basophils # (auto) 0.02 K/uL (0-0.2); Basophils % (auto) 0.3 %; Eosinophils # (auto) 0.05 K/uL (0-0.50); Eosinophils % (auto) 0.8 %; Hematocrit (blood only) 34.4 % (40.1-51.0); Hemoglobin 12.4 g/dl (14.0-18.0); Immature Granulocytes # (auto) 0.02 K/uL (0.00-0.02); Immature Granulocytes % (auto) 0.3 %; Lymphocytes % (auto) 16.5 %; Mean Corpuscular Hemoglobin 34.3 pg (25.0-34.0); Mean Corpuscular Volume 95.3 fL (80.0-100.0); Mean Platelet Volume 11.1 fL (9.4-12.4); Monocytes % (auto) 13.2 %; Neutrophils # (auto) 4.18 K/uL (1.4-6.5); Neutrophils % (auto) 68.9 %; Platelet Count 92 K/uL (130-400); Platelet Estimate Decreased (Normal); RDW Coefficient of Variation 12.3 % (11.5-14.5); RDW Standard Deviation 42.9 fL (36.4-46.3); Red Blood Count 3.61 M/uL (4.63-6.08); White Blood Count 6.07 K/ul (4.8-10.8)
[2022-09-05] MEDS: ESCITALOPRAM OXALATE 10 MG TAB PO SCH (08:43)
[2022-09-05] MEDS: PRAVASTATIN SOD 20 MG TAB PO SCH (08:44)
[2022-09-05] MEDS: METOPROLOL TARTRATE 25 MG TAB PO SCH ×2 (08:44→19:51)
[2022-09-05] MEDS: HEPARIN SOD 5,000 UNIT/0.5 ML VIAL SQ SCH ×2 (09:53→19:51)
--- NOTE | 2022-09-06 05:08 | Surgery Progress Note ---
Date of Service September 06, 2022 Assessment & Plan (1) Carcinoma of appendix: Plan: Status post right colectomy on 09/03/2022 (postop day #3) As patient is tolerating clear liquids will discuss with attending physician if diet can be advanced Continue IV fluids until certain oral intake is adequate Continue analgesics Continue antiemetics Increase activity as able Subcutaneous heparin has been in place for DVT prevention Admission and Anticipated Discharge Date Admission Date: September 03, 2022 Supervising Physician Co-Signing Physician Notes As per Arnulfo Chicas physician payroll assistant Patient is doing very well third day postop Path report is pending The abdomen is benign some ecchymosis lower aspect and around the incision minimal drainage from Anthony drain which was removed incision has no drainage no redness Patient is not taking much for pain and he would like to go home With this I will send the patient home instructions were given regarding wound care follow-up activities and analgesics and return to office in 1 week Subjective Patient notes he is doing well. He denies any nausea or vomiting. He notes his abdominal pain is currently tolerable and controlled. He notes he did have a bowel movement over the past 12 hours. He notes he feels hungry and is interested in trying diet advancement. Physical Exam Gastrointestinal (Abdomen): Abdomen is minimally distended but soft. There is minimal pain with palpation. 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
[2022-09-06] MEDS: ACETAMINOPHEN 1,000 MG/100 ML VIAL IV SCH (05:56)
[2022-09-06] MEDS: LACTATED RINGER'S 1,000 ML IV SCH (05:56)
[2022-09-06] MEDS: ESCITALOPRAM OXALATE 10 MG TAB PO SCH (07:58)
[2022-09-06] MEDS: PRAVASTATIN SOD 20 MG TAB PO SCH (07:58)
[2022-09-06] MEDS: METOPROLOL TARTRATE 25 MG TAB PO SCH (07:58)
[2022-09-06] MEDS: HEPARIN SOD 5,000 UNIT/0.5 ML VIAL SQ SCH (07:58)
[2022-09-06 08:34] LABS: BUN Creatinine Ratio 11.1 (10-20); Calcium 7.8 mg/dl (8.5-10.1); Creatinine Clr Calc Pharmacy 135.3 ml/min; Est GFR (African American) 125.6 ml/min; Est GFR (Non-African American) 108.4 ml/min; Potassium 3.3 mmol/L (3.5-5.1)
[2022-09-06 08:37] LABS: Hematocrit (blood only) 31.4 % (40.1-51.0); Hemoglobin 10.9 g/dl (14.0-18.0); Mean Corpuscular Hemoglobin 33.7 pg (25.0-34.0); Mean Corpuscular Hgb Conc 34.7 g/dL (32.0-36.0); Mean Corpuscular Volume 97.2 fL (80.0-100.0); Platelet Count 88 K/uL (130-400); RDW Coefficient of Variation 12.6 % (11.5-14.5); RDW Standard Deviation 45.2 fL (36.4-46.3); Red Blood Count 3.23 M/uL (4.63-6.08); White Blood Count 4.65 K/ul (4.8-10.8)
[2022-09-06 08:51] LABS: Basophils # (auto) 0.02 K/uL (0-0.2); Basophils % (auto) 0.4 %; Eosinophils % (auto) 2.2 %; Immature Granulocytes # (auto) 0.02 K/uL (0.00-0.02); Immature Granulocytes % (auto) 0.4 %; Lymphocytes # (auto) 0.98 K/uL (1.2-3.4); Lymphocytes % (auto) 21.1 %; Monocytes # (auto) 0.62 K/uL (0.24-0.82); Monocytes % (auto) 13.3 %; Neutrophils # (auto) 2.91 K/uL (1.4-6.5); Neutrophils % (auto) 62.6 %
--- NOTE | 2022-09-14 09:10 | Discharge Summary ---
Date of Service September 06, 2022 Principal Diagnosis Carcinoma of appendix Discharge Exam Constitutional WD/WN, vitals as above Gastrointestinal (Abdomen) Inspection/Auscultation: + abdominal surgical incision (no erythema); abdomen not distended Percussion/Palpation: abdomen soft Discharge Data Allergies Allergy/AdvReac Type Severity Reaction Status Date / Time lisinopril Allergy Intermediate Cough Verified 09/03/22 06:59 simvastatin Allergy Unknown CAN'T Verified 09/03/22 06:59 REMEMBER Procedures Performed Operation Date: 09/03/22 08:50 Actual Procedures p Open Suspended Radical Colectomy(Not Applicable) - Nasim Rick MD, FACS s Laparoscopy(Not Applicable) - Nasim Rick MD, FACS Hospital Course (1) Carcinoma of appendix: 76 y/o male with with recent appendectomy which showed carcinoma now was taken to the operating room for laparoscopic assisted right colectomy. He was transferred to the surgical floor. On POD 1 he was started on clear liquids and bowen was removed. He was kept on clears until bowel function was returning. By POD 3 he was having bowel movements and was able to advance diet. Jordan drain was removed from the incision. He was stable for discharge home later in the day. Total Time Total Time Spent Total Time Spent (In Minutes): 15 Discharge Plan Discharge Items Patient Disposition: Home - Self-Care Reason For Visit: Carcinoma of Appendix Discharge Diagnosis: laparoscopic assisted R colon resection Activity: Per Instructions section Lifting: No more than 10 pounds and Wait until after follow-up appointment Bathing Comment: may shower; no soaking in tubs/pools Exercise/Sports: Wait until after follow-up appointment Driving/Machine Use: wait until seen in office Non-emergency contact: Surgeon Call non-emergency contact if: you have any medication questions, your symptoms worsen, your pain is not controlled, your pain is concerning for you, you have a fever, your temperature is above 101.5, your wound has increased redness, your wound has increased drainage and your wound pain has increased Follow-up/Referrals: Danny Tucker III, MD [Primary Care Provider] - Nasim Rick MD, FACS [Surgeon] - 09/15/22 1:45 pm (Please call to schedule follow up in clinic within 1 week ) Diet: Regular Diet Comment: low fiber diet until cleared by surgeon Addtl Attending Provider Instructions: Pending Studies at Discharge: Yes Studies:: surgical pathology Stand-Alone Forms: [facility] Medications and DC Order Prescriptions: Continued meclizine 12.5 mg tablet See Rx Instructions PO QID PRN (Reason: dizziness) Qty: 30 2RF Rx Instructions: 1 or 2 tabs PO four times daily PRN; multivitamin Tablet 1 tab PO QAM pravastatin 20 mg tablet 20 mg PO QAM escitalopram oxalate 5 mg tablet 5 mg PO QAM metoprolol tartrate 25 mg Tablet 12.5 mg PO BID Qty: 60 0RF Discontinued acetaminophen 500 mg tablet 500 - 1,000 mg PO DIRECTED PRN (Reason: FEVER/PAIN) ciprofloxacin HCl [Cipro] 500 mg tablet 500 mg PO .COMPLEX Qty: 2 0RF Rx Instructions: 500 mg orally; take one at 2 pm day before surgery and one at 10pm day before surgery metronidazole 500 mg tablet 500 mg PO .COMPLEX Qty: 3 0RF Rx Instructions: 500 mg PO The day before surgery take at 2:00 pm, 4:00 pm, and 10:00 pm.; Discharge Orders: Discharge Order (Routine); Ordered 09/06/22 Ordered By: Nasim Canales/Other Patient Handouts: Cancer Overview Admission Data Admit Date/Time: 09/03/22 12:43 Attending Provider: Nasim Rick Admit Provider: Nasim Rick Primary Care Provider: Danny Tucker III Other Interventions: Discharge Summary Assessment (RN) Last Done: 09/06/22 09:12 Coding Level of Care Code D/C DAY MANAGEMENT <30 MINS Diagnoses 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
== END 2022-09-06 11:30 | disposition home or self-care (01) | DRG 331 ==
LOC: ASU 06:16 → 3W 12:43

== ENCOUNTER 2024-11-27 14:44 | Inpatient (IN) ==
--- NOTE | 2024-11-27 15:16 | Emergency Department Note ---
Impression & Plan Episode of unresponsiveness, Acute confusion, Pneumonia ED Provider Note HISTORY OF PRESENT ILLNESS: Patient is an 78-year-old male presenting with an episode of unresponsiveness. Patient reportedly had gone down to the basement to watch TV per his and after about 30 minutes she went down to check on him and found him to be "unresponsive." reported to EMS that the patient was staring off into space, unresponsive and incontinent of urine. She called 911. On EMS arrival, the patient was confused and seemed to be combative. He started to become more alert and route. He reportedly had an oxygen saturation of 89% on room air for EMS, so he was started on 2 L nasal cannula. Fingerstick glucose 130 for EMS. On arrival to the ER, the patient is complaining of upper back pain that "goes all the way down my back." reported to EMS the patient has chronic back pain. Patient denies any chest pain or shortness of breath. Patient saturations in the low 90s per nursing staff, and they started him 2 L nasal cannula due to his tachypnea. Patient denies any abdominal pain, nausea or vomiting. He is alert to person and place. ROS: as above PHYSICAL EXAM: Constitutional: Patient appears in no acute distress. HENT: Head: Normocephalic and atraumatic. Eyes: EOMI, PERRL Mouth/Throat: Mucous membranes dry Neck: Trachea midline. Neck supple. Cardiovascular: RRR, No murmurs, rubs or gallops. Intact distal pulses. Pulmonary/Chest: No respiratory distress. Breath sounds clear and equal bilaterally. No wheezes or rales. Patient is tachypneic. Abdominal: Abdomen soft, no tenderness, rebound or guarding. Musculoskeletal: No edema, tenderness or deformity noted. Skin: Warm and dry. No rash, erythema, pallor or cyanosis Psychiatric: Appropriate mood and affect for situation. Neurological: Alert and keenly responsive. CN II-XII grossly intact, moving all extremities equally and fully. MDM: - Vitals signs showed hypertension - History obtained via EMS, given patient's confusion. History as above. - Chronic conditions affecting care: HTN; HLD; BPH - Differential diagnoses include, but are not limited to: CVA; intracranial hemorrhage; ACS; viral syndrome; dysrhythmia; electrolyte abnormality - Order placed for continuous cardiac monitoring. At this time, monitor showed rate of 66 bpm with normal sinus rhythm, per my interpretation. - External medical records reviewed. Primary care visit note dated 02/16/2024 was reviewed. Patient followed up in clinic for a repeat blood pressure check. - EKG interpreted by myself showed normal sinus rhythm. Rate 75 bpm. QTc 422. No acute ischemic changes. Noted to have an incomplete right bundle branch block. - Laboratory workup interpreted by myself showed normal WBC; normal PT/INR; stable electrolytes; elevated anion gap (13); normal troponin; normal BNP - UA negative for infection. Noted to have ketonuria. - UDS negative - Viral respiratory panel negative - VBG grossly unremarkable - CXR shows concern for left lower lung pneumonia, per my interpretation. - CT head wo contrast negative for acute pathology - CTA head negative for acute pathology - CTA neck negative for acute pathology. Noted to have moderate chronic right sphenoid sinusitis. - CTA chest negative for dissection or PE. Noted have left sided groundglass opacities concerning for pneumonia. - Patient given 1g IV tylenol on arrival for his 10 out of 10 back pain. Pain did not improve so he was given a Lidoderm patch and 50 mcg IV fentanyl. - IV rocephin + 500 mg azithromycin ordered for pneumonia antibiotic coverage. - Discussion was had with comp field case manager about patient's case and need for admission - Hospitalist consulted for admission - Patient admitted to [facility] for further evaluation and management. 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 Vertigo (Chronic) Hypokalemia Easy bruising Tendency toward bleeding easily Chronic hyponatremia (Acute) Aneurysm of ascending aorta (Acute) Organic impotence (Acute) Leukopenia (Chronic) Hearing loss (Acute) Grief reaction (Acute) Elevated prostate specific antigen (PSA) (Acute) BPH (benign prostatic hyperplasia) (Acute) Hypertension Hyperlipidemia Depression Acute appendicitis Medical History Anxiety Vertigo Cardiac murmur last checked in Dec 2023 per pt BPH (benign prostatic hyperplasia) Aneurysm, ascending aorta ascending thoracic aorta measuring up to 4.8 cm checked 12/2023 (in record) Depression Hearing deficit BILATERAL AIDES 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., NO SURGICAL INTERVENTION) Hyperlipidemia Hypertension Surgical History Status post colon resection (09/03/22) Laparoscopy, Open Right colon Resection(Not Applicable) - Nasim Rick MD, FACS History of tooth extraction History of laparoscopic appendectomy (07/31/22) Laparoscopic Appendectomy and Abdominal washout(Not Applicable) - Nasim Rick MD, FACS Hx of LASIK History of left cataract surgery (~11/16/18) History of cataract surgery (~10/26/18) RIGHT CATARACT: 2mg of versed and 100mcg of fentanyl was given without apparent complications Family History Sister Stroke Heart disease Asthma Bleeding disorder Mother Stroke Sister Stroke Shingles Father Lung disease Son Diabetes Grandfather Heart disease Other Hypertension No family history of adverse response to anesthesia Denies family history of Ovarian cancer Prostate cancer Myocardial infarction Breast cancer Colorectal cancer Social History Smoking Status: Never smoker Tobacco Type: Smokeless Tobacco (Dip or Chew) Second Hand Exposure: No; Do You Dip or Chew Tobacco: Yes (advised npo); Hx Alcohol Use: Yes Alcohol type: beer and hard liquor Alcohol Intake Frequency: 4 or More x per/Week Alcohol Intake Frequency Comment: 2-3 beers or shot of yasmine carla per day Hx Substance Use: No Preferred Language: Danish Communication Ability: Effective Visual Impairment: No Limitations Hearing Ability: Use of Hearing Aid Mortgage Loan Counselor Required: No Beliefs That Will Affect Care: None marital status: Current Living Situation: Spouse current occupational status: retired current occupation: used to work at [employer] How many Children do You have: 1 Feels Safe at Home: Yes Safety Concerns Comment: Stairs in home, fall concerns, spends most of his time in basement Childhood Exposure to Second-Hand Smoke: Yes Diet: regular Diet Comment: primarily gluten free due to his 's diet Dental Care, Regularly: No Physical Activity Frequency: Does not Exercise Seatbelt Use: always Sunscreen Use: No Assistive Devices: Denture - Upper, Glasses and Hearing Aid - Bilateral Allergies Allergies Allergy/AdvReac Type Severity Reaction Status Date / Time lisinopril Allergy Intermediate Cough Verified 02/10/24 10:29 simvastatin Allergy Unknown CAN'T Verified 02/10/24 10:29 REMEMBER Home Meds Home Medications Medication Instructions Recorded Confirmed escitalopram oxalate 5 mg tablet 5 mg PO DAILY 11/27/24 11/27/24 Previous Rx's Medication Instructions Recorded valsartan 320 mg tablet 320 mg PO DAILY #90 tabs 02/16/24 meclizine 12.5 mg tablet 12.5 mg PO BID PRN dizziness #60 10/19/24 tabs Results & Data (ED) Vital Signs Vital Signs - 24 hr 11/27/24 14:57 11/27/24 15:05 11/27/24 15:09 Temperature 36.4 C L Temperature Source Oral Pulse Rate 75 75 Pulse Rate [Apical] 72 Respiratory Rate 30 H 29 H Respiratory Effort / Characteristics Spontaneous Non-Labored Spontaneous Respiratory Depth Normal Respiratory Pattern Tachypnea Tachypnea Blood Pressure 129/81 Blood Pressure [Right Arm] 130/72 Blood Pressure Mean 97 Blood Pressure Mean [Right Arm] 91 Blood Pressure Position Semi-fowlers Blood Pressure Position [Right Arm] Semi-fowlers Pulse Oximetry 94 94 Oxygen Delivery Method Room Air Nasal Cannula Nasal Cannula Oxygen Flow Rate 2 Sepsis Recent Fever Within 48 Hours No Sepsis New/Unexplained Change in Mental Status Yes Sepsis Action Taken by Nursing Physician Notified 11/27/24 15:37 11/27/24 16:04 11/27/24 17:11 Temperature Temperature Source Pulse Rate 68 Pulse Rate [Apical] 63 67 Respiratory Rate 35 H 35 H 19 Respiratory Effort / Characteristics Non-Labored Spontaneous Non-Labored Spontaneous Respiratory Depth Normal Normal Respiratory Pattern Regular Regular Blood Pressure Blood Pressure [Right Arm] 135/74 132/86 Blood Pressure Mean Blood Pressure Mean [Right Arm] 94 101 Blood Pressure Position Blood Pressure Position [Right Arm] Pulse Oximetry 96 98 98 Oxygen Delivery Method Nasal Cannula Nasal Cannula Nasal Cannula Oxygen Flow Rate 2 2 2 Sepsis Recent Fever Within 48 Hours Sepsis New/Unexplained Change in Mental Status Sepsis Action Taken by Nursing 11/27/24 18:00 11/27/24 18:54 Temperature Temperature Source Pulse Rate 66 Pulse Rate [Apical] 65 Respiratory Rate 16 Respiratory Effort / Characteristics Non-Labored Spontaneous Respiratory Depth Normal Respiratory Pattern Regular Blood Pressure Blood Pressure [Right Arm] 155/89 H Blood Pressure Mean Blood Pressure Mean [Right Arm] 111 Blood Pressure Position Blood Pressure Position [Right Arm] Semi-fowlers Pulse Oximetry 93 Oxygen Delivery Method Room Air Oxygen Flow Rate Sepsis Recent Fever Within 48 Hours Sepsis New/Unexplained Change in Mental Status Sepsis Action Taken by Nursing Laboratory Data 11/27/24 15:00 11/27/24 15:00 Lab Results 11/27/24 11/27/24 11/27/24 Range/Units 14:57 15:00 15:22 WBC 6.16 (4.8-10.8) K/ul RBC 5.02 (4.70-6.10) M/uL Hgb 16.8 (14.0-18.0) g/dl POC Hgb 16.3 (14.0-18.0) g/dl Hct 46.9 (42.0-52.0) % POC Hct 48 (42-52) % MCV 93.4 (80.0-100.0) fL MCH 33.5 (25.0-34.0) pg MCHC 35.8 (32.0-36.0) g/dL RDW Std Deviation 42.1 (36.4-46.3) fL RDW Coeff of Val 12.3 (11.5-14.5) % Plt Count 132 (130-400) K/uL MPV 10.3 (9.4-12.4) fL Immature Gran % (Auto) 1.8 % Neut % (Auto) 64.9 % Lymph % (Auto) 23.9 % [place] % (Auto) 8.6 % Eos % (Auto) 0.5 % Baso % (Auto) 0.3 % Neut # (Auto) 4.00 (1.40-6.50) K/uL Lymph # (Auto) 1.47 (1.20-3.40) K/uL [place] # (Auto) 0.53 (0.11-0.59) K/uL Eos # (Auto) 0.03 (0.00-0.50) K/uL Baso # (Auto) 0.02 (0.00-0.20) K/uL Immature Gran # (Auto) 0.11 (0.01-0.20) K/uL PT 12.3 H (9.0-12.0) Seconds INR 1.1 (0.9-1.1) APTT 24 (21-31) Seconds PTT Ratio 0.9 VBG pH (7.36-7.41) VBG pCO2 (38-50) mmHg VBG pO2 mmHg VBG HCO3 mmol/L VBG O2 Saturation % VBG Base Excess mEq/L POC Sodium 136 (135-144) mmol/L Sodium 136 (136-145) mmol/L POC Potassium 3.6 (3.3-5.0) mmol/L Potassium 3.8 (3.5-5.1) mmol/L POC Chloride 105 (101-112) mmol/L Chloride 104 (98-107) mmol/L Carbon Dioxide 19 L (21-32) mmol/L POC Total CO2 18 L (24-31) mmol/L Anion Gap 13 H (3-11) POC Anion Gap 19.0 (16-25) mmol/L POC BUN 10 (7-18) mg/dl BUN 10 (6-23) mg/dl Creatinine 0.88 (0.6-1.4) mg/dl POC Creatinine 0.8 (0.6-1.3) mg/dl Est Cr Clr Drug Dosing 69.1 ml/min eGFR 86.93 BUN/Creatinine Ratio 11.4 (10-20) Glucose 116 H (70-99(Fasting)) mg/dl POC Glucose 114 H (70-99) mg/dl POC Glucose (other) 114 H (70-99) mg/dl Calcium 9.1 (8.6-10.3) mg/dl POC Ioniz Calcium Jalen 1.10 L (1.12-1.32) mmol/l Magnesium 2.2 (1.7-2.4) mg/dl Total Bilirubin 1.0 (0.2-1.0) mg/dl AST 28 (13-39) U/L ALT 24 (7-52) U/L Alkaline Phosphatase 53 (34-104) U/L Troponin I High Sens 7.6 (0-20) pg/ml B-Natriuretic Peptide 51 (0-100) pg/ml Total Protein 7.0 (6.0-8.3) gm/dl Albumin 4.2 (3.4-5.0) gm/dl Globulin 2.8 (2.5-4.0) gm/dl Albumin/Globulin Ratio 1.5 (0.9-2) Urine Color Urine Appearance (Clear) Urine pH (4.5-7.5) Ur Specific [place] (1.000-1.030) Urine Protein (Negative) Urine Glucose (UA) (Negative) Urine Ketones (Negative) Urine Blood (Negative) Urine Nitrite (Negative) Urine Bilirubin (Negative) Urine Urobilinogen (Negative) Ur Leukocyte Esterase (Negative) Urine WBC (Auto) (0-5) /hpf Urine RBC (Auto) (0-2) /hpf U Hyaline Cast (Auto) (0-2) /lpf U Epithel Cells (Auto) (0-2) /hpf Urine Bacteria (Auto) (None Seen) Urine Opiates Screen (Neg) Ur Methadone, Qual (Neg) Urine Fentanyl Screen (Neg) Urine Barbiturates (Neg) Ur Phencyclidine (PCP) (Neg) U Amphetamin/Meth Scrn (Neg) MDMA (Ecstasy) Screen (Neg) U Benzodiazepines Scrn (Neg) Ur Cocaine Metabolite (Neg) U Marijuana (THC) Screen (Neg) Adenovirus (PCR) (NotDetected) B. pertussis DNA (PCR) (NotDetected) B.parapertussis DNA PCR (NotDetected) C. pneumoniae DNA (PCR) (NotDetected) Coronavirus OC43 (PCR) (NotDetected) Coronavirus HKU1 (PCR) (NotDetected) Coronavirus 229E (PCR) (NotDetected) SARS-CoV-2 (PCR) (NotDetected) Coronavirus NL63 (PCR) (NotDetected) Human Metapneumovir PCR (NotDetected) Influenza Type A (PCR) (NotDetected) Influenza Type B (PCR) (NotDetected) M. pneumoniae (PCR) (NotDetected) Parainfluenza 1 (PCR) (NotDetected) Parainfluenza 2 (PCR) (NotDetected) Parainfluenza 3 (PCR) (NotDetected) Parainfluenza 4 (PCR) (NotDetected) RSV (PCR) (NotDetected) Entero/Rhino (PCR) (NotDetected) 11/27/24 11/27/24 11/27/24 Range/Units 15:33 15:37 Unknown WBC (4.8-10.8) K/ul RBC (4.70-6.10) M/uL Hgb (14.0-18.0) g/dl POC Hgb (14.0-18.0) g/dl Hct (42.0-52.0) % POC Hct (42-52) % MCV (80.0-100.0) fL MCH (25.0-34.0) pg MCHC (32.0-36.0) g/dL RDW Std Deviation (36.4-46.3) fL RDW Coeff of Val (11.5-14.5) % Plt Count (130-400) K/uL MPV (9.4-12.4) fL Immature Gran % (Auto) % Neut % (Auto) % Lymph % (Auto) % [place] % (Auto) % Eos % (Auto) % Baso % (Auto) % Neut # (Auto) (1.40-6.50) K/uL Lymph # (Auto) (1.20-3.40) K/uL [place] # (Auto) (0.11-0.59) K/uL Eos # (Auto) (0.00-0.50) K/uL Baso # (Auto) (0.00-0.20) K/uL Immature Gran # (Auto) (0.01-0.20) K/uL PT (9.0-12.0) Seconds INR (0.9-1.1) APTT (21-31) Seconds PTT Ratio VBG pH 7.51 H (7.36-7.41) VBG pCO2 25 L (38-50) mmHg VBG pO2 36 mmHg VBG HCO3 20 mmol/L VBG O2 Saturation 63.9 % VBG Base Excess -1.0 mEq/L POC Sodium (135-144) mmol/L Sodium (136-145) mmol/L POC Potassium (3.3-5.0) mmol/L Potassium (3.5-5.1) mmol/L POC Chloride (101-112) mmol/L Chloride (98-107) mmol/L Carbon Dioxide (21-32) mmol/L POC Total CO2 (24-31) mmol/L Anion Gap (3-11) POC Anion Gap (16-25) mmol/L POC BUN (7-18) mg/dl BUN (6-23) mg/dl Creatinine (0.6-1.4) mg/dl POC Creatinine (0.6-1.3) mg/dl Est Cr Clr Drug Dosing ml/min eGFR BUN/Creatinine Ratio (10-20) Glucose (70-99(Fasting)) mg/dl POC Glucose (70-99) mg/dl POC Glucose (other) (70-99) mg/dl Calcium (8.6-10.3) mg/dl POC Ioniz Calcium Jalen (1.12-1.32) mmol/l Magnesium (1.7-2.4) mg/dl Total Bilirubin (0.2-1.0) mg/dl AST (13-39) U/L ALT (7-52) U/L Alkaline Phosphatase (34-104) U/L Troponin I High Sens (0-20) pg/ml B-Natriuretic Peptide (0-100) pg/ml Total Protein (6.0-8.3) gm/dl Albumin (3.4-5.0) gm/dl Globulin (2.5-4.0) gm/dl Albumin/Globulin Ratio (0.9-2) Urine Color Yellow Urine Appearance Clear (Clear) Urine pH 6.0 (4.5-7.5) Ur Specific [place] > 1.045 H (1.000-1.030) Urine Protein Trace H (Negative) Urine Glucose (UA) Negative (Negative) Urine Ketones 3+ H (Negative) Urine Blood Negative (Negative) Urine Nitrite Negative (Negative) Urine Bilirubin Negative (Negative) Urine Urobilinogen Negative (Negative) Ur Leukocyte Esterase Negative (Negative) Urine WBC (Auto) 0-5 (0-5) /hpf Urine RBC (Auto) 0-2 (0-2) /hpf U Hyaline Cast (Auto) 0-2 (0-2) /lpf U Epithel Cells (Auto) 0-2 (0-2) /hpf Urine Bacteria (Auto) None Seen (None Seen) Urine Opiates Screen Neg (Neg) Ur Methadone, Qual Neg (Neg) Urine Fentanyl Screen Neg (Neg) Urine Barbiturates Neg (Neg) Ur Phencyclidine (PCP) Neg (Neg) U Amphetamin/Meth Scrn Neg (Neg) MDMA (Ecstasy) Screen Neg (Neg) U Benzodiazepines Scrn Neg (Neg) Ur Cocaine Metabolite Neg (Neg) U Marijuana (THC) Screen Neg (Neg) Adenovirus (PCR) Not Detected (NotDetected) B. pertussis DNA (PCR) Not Detected (NotDetected) B.parapertussis DNA PCR Not Detected (NotDetected) C. pneumoniae DNA (PCR) Not Detected (NotDetected) Coronavirus OC43 (PCR) Not Detected (NotDetected) Coronavirus HKU1 (PCR) Not Detected (NotDetected) Coronavirus 229E (PCR) Not Detected (NotDetected) SARS-CoV-2 (PCR) Not Detected (NotDetected) Coronavirus NL63 (PCR) Not Detected (NotDetected) Human Metapneumovir PCR Not Detected (NotDetected) Influenza Type A (PCR) Not Detected (NotDetected) Influenza Type B (PCR) Not Detected (NotDetected) M. pneumoniae (PCR) Not Detected (NotDetected) Parainfluenza 1 (PCR) Not Detected (NotDetected) Parainfluenza 2 (PCR) Not Detected (NotDetected) Parainfluenza 3 (PCR) Not Detected (NotDetected) Parainfluenza 4 (PCR) Not Detected (NotDetected) RSV (PCR) Not Detected (NotDetected) Entero/Rhino (PCR) Not Detected (NotDetected) Administered Medications Discontinued Medications Fentanyl Citrate (Fentanyl Citrate Pf 100 Mcg/2 Ml Vial) 50 mcg IV NOW STA Stop: 11/27/24 17:27 Last Admin: 11/27/24 17:50 Dose: 50 mcg Documented By: EDGAR Acetaminophen (Ofirmev) 1,000 mg in 100 mls @ 400 mls/hr IV NOW STA Stop: 11/27/24 15:46 Last Infusion: 11/27/24 15:51 Dose: Infused Documented By: Admin: 11/27/24 15:36 Dose: 400 mls/hr Documented By: QMAAR Ioversol (Optiray 320 125ml) 118 ml IV ONCE ONE Stop: 11/27/24 15:46 Last Admin: 11/27/24 15:46 Dose: 118 ml Documented By: KATHY Lidocaine (Lidocaine 5% 1 Patch) 1 patch TD NOW STA Stop: 11/27/24 17:27 Last Admin: 11/27/24 17:51 Dose: 1 patch Documented By: [facility] Imaging Data Radiologist's Impression: Chest CTA 11/27/24 15:11 EXAM: CT Angiography Chest Without and With Intravenous Contrast INDICATION: Unresponsive. TECHNIQUE: Axial computed tomographic angiography images of the chest without and with intravenous contrast. Sagittal and coronal reformatted images were created and reviewed. This CT exam was performed using one or more of the following dose reduction techniques: automated exposure control, adjustment of the mA and/or kV according to patient size, and/or use of iterative reconstruction technique. MIP reconstructed images were created and reviewed. CONTRAST: 119ml of Optiray 320 was administered intravenously. COMPARISON: 12/17/2023 FINDINGS: Pulmonary arteries: Artifact limits assessment of the lower lobe pulmonary arterial segments. No visible embolus noted. Aorta: Ectatic aorta with dilated ascending segment to 4.6 cm. Moderate atherosclerosis of the distal arch and descending aorta. No dissection. Lungs and pleural spaces: Respiratory motion limits assessment of the lung taylor. There is patchy groundglass infiltrate in the left upper lobe. There is coarse groundglass left lower lobe infiltrate and bilateral dependent atelectasis. There is dependent atelectasis in both lower lobes. Centrilobular emphysematous changes present. No mass. No significant effusion. No pneumothorax. Heart: Cardiomegaly. No right heart strain or pericardial effusion. Bones/joints: No acute or atypical chronic changes. Soft tissues: No abnormality noted. Lymph nodes: No abnormality noted. No enlarged lymph nodes. IMPRESSION: 1. No aortic dissection or pulmonary embolus noted. Ascending aorta dilated to 4.6 cm. 2. Left upper and lower lobe groundglass infiltrates. Infectious and chemical pneumonitis considered. ACT 112: Negative or not required by law. Electronically signed by Alicia Dan 11-27-2024 5:[address] 11/27/24 15:11 EXAM: CT Head Without Intravenous Contrast INDICATION: Unresponsive. Urinary incontinence. TECHNIQUE: Axial computed tomography images of the head/brain without intravenous contrast. Sagittal and/or coronal reformats are provided. Sagittal and coronal reformatted images were created and reviewed. This CT exam was performed using one or more of the following dose reduction techniques: automated exposure control, adjustment of the mA and/or kV according to patient size, and/or use of iterative reconstruction technique. COMPARISON: 02/10/2021 FINDINGS: Limitations: None. Brain and extra-axial spaces: There is age appropriate cortical atrophy and chronic ischemic periventricular white matter hypodensity. No acute infarct, hemorrhage or mass noted. Bones/joints: No acute changes. Soft tissues: No significant abnormality noted. Vasculature: Atherosclerosis of the intracranial right vertebral and bilateral carotid arteries. Sinuses: No layering fluid in the visualized portions of the paranasal sinuses. Mastoid air cells: No mastoid effusion. Orbits: No significant abnormality noted. IMPRESSION: Cerebral atrophy. No acute changes. ACT 112: Negative or not required by law. Electronically signed by Alicia Dan 11-27-2024 4:27 PM Head CTA 11/27/24 15:11 EXAM: CT Angiography Head With Intravenous Contrast INDICATION: Unresponsive. TECHNIQUE: Axial computed tomographic angiography images of the head with intravenous contrast. Sagittal and coronal reformatted images were created and reviewed. This CT exam was performed using one or more of the following dose reduction techniques: automated exposure control, adjustment of the mA and/or kV according to patient size, and/or use of iterative reconstruction technique. MIP reconstructed images were created and reviewed. CONTRAST: 119ml of Optiray 320 was administered intravenously. COMPARISON: No relevant prior studies available. FINDINGS: Right internal carotid artery: There is mild atherosclerotic plaque in the cavernous right internal carotid artery. No stenosis, aneurysm or dissection. Right anterior cerebral artery: No abnormality noted. No occlusion or significant stenosis. No aneurysm. Right middle cerebral artery: No abnormality noted. No occlusion or significant stenosis. No aneurysm. Right posterior cerebral artery: Incidental origin. No occlusion or significant stenosis. No aneurysm. Right vertebral artery: No significant abnormality noted. Left internal carotid artery: No acute change noted. Intracranial segment is patent with no significant stenosis. No aneurysm. Left anterior cerebral artery: No abnormality noted. No occlusion or significant stenosis. No aneurysm. Left middle cerebral artery: No abnormality noted. No occlusion or significant stenosis. No aneurysm. Left posterior cerebral artery: No abnormality noted. No occlusion or significant stenosis. No aneurysm. Left vertebral artery: No significant abnormality noted. Basilar artery: No abnormality noted. No occlusion or significant stenosis. No aneurysm. IMPRESSION: No significant angiographic abnormality of the brain. ACT 112: Negative or not required by law. Electronically signed by Alicia Dan 11-27-2024 4:27 PM Neck CTA 11/27/24 15:11 EXAM: CT Angiography Neck With Intravenous Contrast INDICATION: Unresponsive. TECHNIQUE: Routine carotid CT angiography protocol was performed with intravenous contrast. NASCET criteria using the distal ICAs for comparison were used for evaluation of stenoses. Sagittal and coronal reformatted images were created and reviewed. This CT exam was performed using one or more of the following dose reduction techniques: automated exposure control, adjustment of the mA and/or kV according to patient size, and/or use of iterative reconstruction technique. MIP reconstructed images were created and reviewed. CONTRAST: 119ml of Optiray 320 was administered intravenously. COMPARISON: None. FINDINGS: VASCULATURE: Right common carotid artery: No abnormality noted. No occlusion or significant stenosis. No dissection. Right internal carotid artery: Mild calcific plaque right carotid bulb and proximal segment without stenosis, aneurysm or dissection. Right external carotid artery: No abnormality noted. No occlusion. Right vertebral artery: No abnormality noted. No occlusion or significant stenosis. No dissection. Left common carotid artery: No abnormality noted. No occlusion or significant stenosis. No dissection. Left internal carotid artery: Mild calcific plaque left carotid bulb and proximal segment without stenosis, aneurysm or dissection. Left external carotid artery: No abnormality noted. No occlusion. Left vertebral artery: No abnormality noted. No occlusion or significant stenosis. No dissection. Brachiocephalic and subclavian arteries: There is moderate atherosclerotic calcification of the left subclavian artery without occlusion, stenosis or dissection. NECK: Bones/joints: No acute or atypical chronic changes. Soft tissues: No abnormality noted. Sinuses: Moderate chronic mucosal thickening right sphenoid sinus. Lung apices: Clear. CAROTID STENOSIS REFERENCE USING NASCET CRITERIA: % ICA stenosis = (1 - narrowest ICA diameter/diameter of distal cervical ICA) x 100. Mild - <50% stenosis. Moderate - 50-69% stenosis. Severe - 70-94% stenosis. Near occlusion - 95-99% stenosis. Occluded - 100% stenosis. IMPRESSION: 1. No significant angiographic abnormality in the neck. 2. Moderate chronic right sphenoid sinusitis. ACT 112: Negative or not required by law. Electronically signed by Alicia Dan 11-27-2024 4:27 PM Chest X-Ray 11/27/24 15:12 EXAM: Radiograph of the Chest 1 View INDICATION: Unresponsive. TECHNIQUE: Frontal view of the chest. COMPARISON: 12/17/2023 FINDINGS: Lungs and pleural spaces: Approximate 2.0 x 1.7 cm infiltrate in the left lung base. No pleural effusion or pneumothorax. Heart: Shape and configuration within normal limits allowing for technique. Mediastinum: Normal contour. Bones/joints: No fracture, erosion or dislocation. Soft tissues: No abnormality noted. No radiopaque foreign body noted. Vasculature: Ectatic calcified aorta. Upper abdomen: No abnormality noted. IMPRESSION: Mild left basilar atelectasis or pneumonia. ACT 112: Negative or not required by law. Electronically signed by Alicia Dan 11-27-2024 4:30 PM Discharge Plan Visit Data Chief Complaint: Illness Stated Complaint: AMS ED Provider: Gina Gordon Discharge Problem: Episode of unresponsiveness, Acute confusion, Pneumonia Forms Stand Alone Forms: [facility] Prescriptions Prescriptions: No Action meclizine 12.5 mg tablet 12.5 mg PO BID PRN (Reason: dizziness) Qty: 60 1RF Rx Instructions: only take when dizzy valsartan 320 mg tablet 320 mg PO DAILY Qty: 90 3RF escitalopram oxalate 5 mg tablet 5 mg PO DAILY Referrals Referrals: Sobia Zambrano CRNP [Primary Care Provider] -
[2024-11-27 15:27] LABS: Basophils # (auto) 0.02 K/uL (0.00-0.20); Basophils % (auto) 0.3 %; Eosinophils # (auto) 0.03 K/uL (0.00-0.50); Eosinophils % (auto) 0.5 %; Hematocrit (blood only) 46.9 % (42.0-52.0); Hemoglobin 16.8 g/dl (14.0-18.0); Immature Granulocytes # (auto) 0.11 K/uL (0.01-0.20); Immature Granulocytes % (auto) 1.8 %; Lymphocytes # (auto) 1.47 K/uL (1.20-3.40); Lymphocytes % (auto) 23.9 %; Mean Corpuscular Hemoglobin 33.5 pg (25.0-34.0); Mean Corpuscular Hgb Conc 35.8 g/dL (32.0-36.0); Mean Corpuscular Volume 93.4 fL (80.0-100.0); Mean Platelet Volume 10.3 fL (9.4-12.4); Monocytes # (auto) 0.53 K/uL (0.11-0.59); Monocytes % (auto) 8.6 %; Neutrophils % (auto) 64.9 %; Platelet Count 132 K/uL (130-400); RDW Coefficient of Variation 12.3 % (11.5-14.5); RDW Standard Deviation 42.1 fL (36.4-46.3); Red Blood Count 5.02 M/uL (4.70-6.10); White Blood Count 6.16 K/ul (4.8-10.8)
[2024-11-27 15:34] LABS: iSTAT Creatinine 0.8 mg/dl (0.6-1.3); iSTAT Hemoglobin 16.3 g/dl (14.0-18.0); iSTAT Ionized Calcium 1.1 mmol/l (1.12-1.32); iSTAT Potassium 3.6 mmol/L (3.3-5.0)
[2024-11-27] MEDS: ACETAMINOPHEN 1,000 MG/100 ML VIAL IV STA (15:36)
[2024-11-27 15:42] LABS: HCO3 VBG 20 mmol/L; Oxygen Saturation VBG 63.9 %; PCO2 VBG 25 mmHg (38-50); PO2 VBG 36 mmHg; pH VBG 7.51 (7.36-7.41)
[2024-11-27 15:46] LABS: Troponin I High Sensitivity 7.6 pg/ml (0-20)
[2024-11-27] MEDS: OPTIRAY 320 125ml IV ONE (15:46)
[2024-11-27 15:51] LABS: INR 1.1 (0.9-1.1); Partial Thromboplastin Ratio 0.9; Partial Thromboplastin Time 24 Seconds (21-31); Prothrombin Time 12.3 Seconds (9.0-12.0)
[2024-11-27 16:07] LABS: Albumin Level 4.2 gm/dl (3.4-5.0); Calcium 9.1 mg/dl (8.6-10.3); Magnesium 2.2 mg/dl (1.7-2.4); Potassium 3.8 mmol/L (3.5-5.1)
[2024-11-27 16:14] LABS: Albumin Globulin Ratio 1.5 (0.9-2); BUN Creatinine Ratio 11.4 (10-20); Creatinine Clr Calc Pharmacy 69.1 ml/min; Globulin 2.8 gm/dl (2.5-4.0)
--- NOTE | 2024-11-27 16:28 | CT Scan Report ---
EXAM: CT Angiography Neck With Intravenous Contrast INDICATION: Unresponsive. TECHNIQUE: Routine carotid CT angiography protocol was performed with intravenous contrast. NASCET criteria using the distal ICAs for comparison were used for evaluation of stenoses. Sagittal and coronal reformatted images were created and reviewed. This CT exam was performed using one or more of the following dose reduction techniques: automated exposure control, adjustment of the mA and/or kV according to patient size, and/or use of iterative reconstruction technique. MIP reconstructed images were created and reviewed. CONTRAST: 119ml of Optiray 320 was administered intravenously. COMPARISON: None. FINDINGS: VASCULATURE: Right common carotid artery: No abnormality noted. No occlusion or significant stenosis. No dissection. Right internal carotid artery: Mild calcific plaque right carotid bulb and proximal segment without stenosis, aneurysm or dissection. Right external carotid artery: No abnormality noted. No occlusion. Right vertebral artery: No abnormality noted. No occlusion or significant stenosis. No dissection. Left common carotid artery: No abnormality noted. No occlusion or significant stenosis. No dissection. Left internal carotid artery: Mild calcific plaque left carotid bulb and proximal segment without stenosis, aneurysm or dissection. Left external carotid artery: No abnormality noted. No occlusion. Left vertebral artery: No abnormality noted. No occlusion or significant stenosis. No dissection. Brachiocephalic and subclavian arteries: There is moderate atherosclerotic calcification of the left subclavian artery without occlusion, stenosis or dissection. NECK: Bones/joints: No acute or atypical chronic changes. Soft tissues: No abnormality noted. Sinuses: Moderate chronic mucosal thickening right sphenoid sinus. Lung apices: Clear. CAROTID STENOSIS REFERENCE USING NASCET CRITERIA: % ICA stenosis = (1 - narrowest ICA diameter/diameter of distal cervical ICA) x 100. Mild - <50% stenosis. Moderate - 50-69% stenosis. Severe - 70-94% stenosis. Near occlusion - 95-99% stenosis. Occluded - 100% stenosis. IMPRESSION: 1. No significant angiographic abnormality in the neck. 2. Moderate chronic right sphenoid sinusitis. ACT 112: Negative or not required by law. Electronically signed by Alicia Dan 11-27-2024 4:27 PM
--- NOTE | 2024-11-27 16:28 | CT Scan Report ---
EXAM: CT Angiography Head With Intravenous Contrast INDICATION: Unresponsive. TECHNIQUE: Axial computed tomographic angiography images of the head with intravenous contrast. Sagittal and coronal reformatted images were created and reviewed. This CT exam was performed using one or more of the following dose reduction techniques: automated exposure control, adjustment of the mA and/or kV according to patient size, and/or use of iterative reconstruction technique. MIP reconstructed images were created and reviewed. CONTRAST: 119ml of Optiray 320 was administered intravenously. COMPARISON: No relevant prior studies available. FINDINGS: Right internal carotid artery: There is mild atherosclerotic plaque in the cavernous right internal carotid artery. No stenosis, aneurysm or dissection. Right anterior cerebral artery: No abnormality noted. No occlusion or significant stenosis. No aneurysm. Right middle cerebral artery: No abnormality noted. No occlusion or significant stenosis. No aneurysm. Right posterior cerebral artery: Incidental origin. No occlusion or significant stenosis. No aneurysm. Right vertebral artery: No significant abnormality noted. Left internal carotid artery: No acute change noted. Intracranial segment is patent with no significant stenosis. No aneurysm. Left anterior cerebral artery: No abnormality noted. No occlusion or significant stenosis. No aneurysm. Left middle cerebral artery: No abnormality noted. No occlusion or significant stenosis. No aneurysm. Left posterior cerebral artery: No abnormality noted. No occlusion or significant stenosis. No aneurysm. Left vertebral artery: No significant abnormality noted. Basilar artery: No abnormality noted. No occlusion or significant stenosis. No aneurysm. IMPRESSION: No significant angiographic abnormality of the brain. ACT 112: Negative or not required by law. Electronically signed by Alicia Dan 11-27-2024 4:27 PM
--- NOTE | 2024-11-27 16:28 | CT Scan Report ---
EXAM: CT Head Without Intravenous Contrast INDICATION: Unresponsive. Urinary incontinence. TECHNIQUE: Axial computed tomography images of the head/brain without intravenous contrast. Sagittal and/or coronal reformats are provided. Sagittal and coronal reformatted images were created and reviewed. This CT exam was performed using one or more of the following dose reduction techniques: automated exposure control, adjustment of the mA and/or kV according to patient size, and/or use of iterative reconstruction technique. COMPARISON: 02/10/2021 FINDINGS: Limitations: None. Brain and extra-axial spaces: There is age appropriate cortical atrophy and chronic ischemic periventricular white matter hypodensity. No acute infarct, hemorrhage or mass noted. Bones/joints: No acute changes. Soft tissues: No significant abnormality noted. Vasculature: Atherosclerosis of the intracranial right vertebral and bilateral carotid arteries. Sinuses: No layering fluid in the visualized portions of the paranasal sinuses. Mastoid air cells: No mastoid effusion. Orbits: No significant abnormality noted. IMPRESSION: Cerebral atrophy. No acute changes. ACT 112: Negative or not required by law. Electronically signed by Alicia Dan 11-27-2024 4:27 PM
--- NOTE | 2024-11-27 16:30 | XRay Report ---
EXAM: Radiograph of the Chest 1 View INDICATION: Unresponsive. TECHNIQUE: Frontal view of the chest. COMPARISON: 12/17/2023 FINDINGS: Lungs and pleural spaces: Approximate 2.0 x 1.7 cm infiltrate in the left lung base. No pleural effusion or pneumothorax. Heart: Shape and configuration within normal limits allowing for technique. Mediastinum: Normal contour. Bones/joints: No fracture, erosion or dislocation. Soft tissues: No abnormality noted. No radiopaque foreign body noted. Vasculature: Ectatic calcified aorta. Upper abdomen: No abnormality noted. IMPRESSION: Mild left basilar atelectasis or pneumonia. ACT 112: Negative or not required by law. Electronically signed by Alicia Dan 11-27-2024 4:30 PM
[2024-11-27 16:40] LABS: Adenovirus PCR Not Detected (NotDetected); Bordetella parapertussis PCR Not Detected (NotDetected); Bordetella pertussis PCR Not Detected (NotDetected); Chlamydia pneumoniae PCR Not Detected (NotDetected); Coronavirus 229E PCR Not Detected (NotDetected); Coronavirus CoV-2 (COVID19)PCR Not Detected (NotDetected); Coronavirus HKU1 PCR Not Detected (NotDetected); Coronavirus NL63 PCR Not Detected (NotDetected); Coronavirus OC43PCR Not Detected (NotDetected); Human Metapneumovirus PCR Not Detected (NotDetected); Influenza A PCR Not Detected (NotDetected); Influenza B PCR Not Detected (NotDetected); Mycoplasma pneumoniae PCR Not Detected (NotDetected); Parainfluenza Virus 1 PCR Not Detected (NotDetected); Parainfluenza Virus 2 PCR Not Detected (NotDetected); Parainfluenza Virus 3 PCR Not Detected (NotDetected); Parainfluenza Virus 4 PCR Not Detected (NotDetected); Respiratory Syncytial VirusPCR Not Detected (NotDetected); Rhinovirus/Enterovirus PCR Not Detected (NotDetected)
--- NOTE | 2024-11-27 17:02 | CT Scan Report ---
EXAM: CT Angiography Chest Without and With Intravenous Contrast INDICATION: Unresponsive. TECHNIQUE: Axial computed tomographic angiography images of the chest without and with intravenous contrast. Sagittal and coronal reformatted images were created and reviewed. This CT exam was performed using one or more of the following dose reduction techniques: automated exposure control, adjustment of the mA and/or kV according to patient size, and/or use of iterative reconstruction technique. MIP reconstructed images were created and reviewed. CONTRAST: 119ml of Optiray 320 was administered intravenously. COMPARISON: 12/17/2023 FINDINGS: Pulmonary arteries: Artifact limits assessment of the lower lobe pulmonary arterial segments. No visible embolus noted. Aorta: Ectatic aorta with dilated ascending segment to 4.6 cm. Moderate atherosclerosis of the distal arch and descending aorta. No dissection. Lungs and pleural spaces: Respiratory motion limits assessment of the lung taylor. There is patchy groundglass infiltrate in the left upper lobe. There is coarse groundglass left lower lobe infiltrate and bilateral dependent atelectasis. There is dependent atelectasis in both lower lobes. Centrilobular emphysematous changes present. No mass. No significant effusion. No pneumothorax. Heart: Cardiomegaly. No right heart strain or pericardial effusion. Bones/joints: No acute or atypical chronic changes. Soft tissues: No abnormality noted. Lymph nodes: No abnormality noted. No enlarged lymph nodes. IMPRESSION: 1. No aortic dissection or pulmonary embolus noted. Ascending aorta dilated to 4.6 cm. 2. Left upper and lower lobe groundglass infiltrates. Infectious and chemical pneumonitis considered. ACT 112: Negative or not required by law. Electronically signed by Alicia Dan 11-27-2024 5:02 PM
[2024-11-27] MEDS: fentaNYL citrate PF 100 MCG/2 ML VIAL IV STA (17:50)
[2024-11-27] MEDS: LIDOCAINE 5% 1 PATCH TD STA (17:51)
[2024-11-27 18:22] LABS: Appearance Urine Clear (Clear); Bacteria Urine Automated None Seen (None Seen); Bilirubin Urine Negative (Negative); Blood Urine Negative (Negative); Cast Urine Automated 0-2 /lpf (0-2); Color Urine Yellow; Epithelial Cell Urine Auto 0-2 /hpf (0-2); Glucose Urine UA Negative (Negative); Ketones Urine 3+ (Negative); Leukocyte Esterase Urine Negative (Negative); Nitrite Urine Negative (Negative); Protein Urine Trace (Negative); RBC Urine Automated 0-2 /hpf (0-2); Specific Gravity Urine > 1.045 (1.000-1.030); Urobilinogen Urine Negative (Negative); WBC Urine Automated 0-5 /hpf (0-5)
[2024-11-27 19:10] LABS: Amphetamines+Metham, Urine Neg (Neg); Barbiturates, Urine Neg (Neg); Benzodiazepine, Urine Neg (Neg); Cocaine, Urine Neg (Neg); Fentanyl, Urine Neg (Neg); MDMA (Ecstacy), Urine Neg (Neg); Marijuana, Urine Neg (Neg); Methadone, Urine Neg (Neg); Opiate, Urine Neg (Neg); Phencyclidine, Urine Neg (Neg)
[2024-11-27] MEDS: AZITHROMYCIN 250 MG TAB PO ONE (19:49)
[2024-11-27] MEDS: cefTRIAXone SODIUM 2,000 MG/50 ML BAG IV STA (19:50)
--- NOTE | 2024-11-27 21:53 | History & Physical Report ---
Date of Service November 27, 2024 Assessment & Plan (1) Pneumonia: (2) Episode of unresponsiveness: (3) Back pain: Plan 78-year-old male PMHx vertigo, BPH, h/o carcinoma of appendix (2021), AAA, and anxiety presenting to ED via EMS following an unresponsive episode as noted per . States he awoke at 0600 feeling completely fine and went about daily activities. A few hours later he went downstairs and went to take a nap in his recliner. Patient had no abnormal sensation or symptoms prior to taking a nap in the next and he remembers is waking up in the ambulance being confused as to why he was in the ambulance. Found to have pH 7.51, pCO2 24, AG 13 w/ CXR revealing mild L basilar atelectasis or PNA. Pt was started on antibiotics, azithro + ceftriaxone, in ED. Additionally, no gross findings revealed on workup to include WNL CBC, grossly WNL CMP, and normal UA. Chest CTA w/ ascending aorta dilated to 4.6cm and STEVEN/LL ground glass infiltrates. Hed CT w/ atrophy but no acute changes, CTA head/neck WNL. #PNA Has had coughing throughout the night, ongoing. No infectious symptoms of note but with recent unresponsive episode and ? aspiration, will treat. Does drink ETOH, 2-3 beers per day but no illicit drug use. Does admit to having a bucket of water that he uses in conjunction with his heat system in the basement which he has not changed the water for some time, unable to tell exactly how long it has been; utilizes to help prevent basement from getting dry. - VBGs w/ pH 7.5, pCO2 24; hemodynamically stable- No O2 at baseline - CXR mild L basilar atelectasis or PNA- minimal crackles in LLL; obtain sputum culture if possible - Flutter valve + incentive spirometer; Tylenol 640mg po q6hr fever/pain - Started on ceftriaxone + azithro in ED - continue Ceftriaxone 1g + azithromycin 500 mg x 3 days (first dose 11/27) #Unresponsive episode Unsure of the cause of such; Does not recall the event and patient's , Maria Eugenia, states that there was no involuntary movement, no loss of bowel/bladder, no tongue biting. ? whether this was seizure activity. No neurological deficits on admitting exam. No history of seizures, no illicit drug use (UDS negative), 2-3 beers per day x 4 years. History of vertigo, takes meclizine as needed, not taken on the day of arrival. - CT head w/ atrophy, no acute changes; Head/neck CTA WNL - EKG NS w/ 1st degree AV block; Echo 2021 - LVH, mild AR, mild TR, ascending thoracic aorta (4.5cm), pending repeat; will monitor on telemetry - No neurological deficits, no current indications for MRI - consider seizure workup - Seizure precautions #Back pain, acute No recent trauma to back, no neurological symptoms. States that it follows along the spine, no radiation out to ribcage, described as sharp. No tenderness to palpation of spine. - Pain management for now- Lidocaine patch, acetaminophen - Imaging as appropriate; Consider PT/OT as appropriate #Ascending thoracic aortic aneurysm History of such, 4.6 cm on imaging at time of admission - Aggressive BP control; Continue outpatient medications + notify w/ elevated readings #Depression- Escitalopram Dispo: Admit med/tele VTE prophylaxis: Lovenox This document was dictated utilizing [employer]star. Please excuse any grammatical errors that may be secondary to use of this software. Admission and Anticipated Discharge Date Admission Date: 11/27/2024 History of Present Illness Chief Complaint: Unresponsive episode Primary Care Provider: JANNIE Love 78-year-old male PMHx vertigo, BPH, AAA, h/o carcinoma of appendix (2021), and anxiety presenting to ED via EMS following an unresponsive episode as noted per . States he awoke at 0600 feeling completely fine and went about daily activities. A few hours later he went downstairs and went to take a nap in his recliner. Patient had no abnormal sensation or symptoms prior to taking a nap in the next and he remembers is waking up in the ambulance being confused as to why he was in the ambulance. His helps to provide history. States that she recalls the patient going downstairs to take a nap and within a 5-minute timeframe he had made an odd noise. She had called down but patient did not respond. When she approached the patient, she recalls that he was staring off to the right and taking very deep breaths. He was not coming to even when she was speaking loudly to him and shaking him. She states that he has slowly come out of this episode within a few seconds but still seemed off. Does not believe that he was incontinent of bladder but notes that he was sweating an excessive amount at this time. Did not notice any seizure-like activity. Patient's only complaint at this time is back pain that is centralized from the level of his shoulder blades down to his tailbone, stating that it is sharp and "severe". He was planning snow yesterday but was doing so through a motorized vehicle. Does not recall any additional injury and pain does not radiate to his neck. Does have occasional coughing at nighttime, this is normal for the patient. Of note, patient has a pellet stove as well as a bucket of water that has apparently been sitting around for an extended amount of time which he uses to help the basement from getting dry. Pt unsure how long the water has been stagnant. Patient denying additional symptoms to include chest pain, shortness of breath, palpitations, abdominal pain, N/V/D/C, numbness/tingling, dizziness, weakness, LUTS, or fever/chills. States that he has been taking his medication as prescribed and denies illicit drug use. Drinks approximately 2-3 beers per day the past 4 years. No history of withdrawal. No history of seizures. Patient took all his medications today. Please see Dr. Ruth's attestation for adjustments/additions to treatment plan. Allergies Allergy/AdvReac Type Severity Reaction Status Date / Time lisinopril Allergy Intermediate Cough Verified 02/10/24 10:29 simvastatin Allergy Unknown CAN'T Verified 02/10/24 10:29 REMEMBER Home Medications Medication Instructions Recorded Confirmed Type valsartan 320 mg tablet 320 mg PO DAILY #90 tabs 02/16/24 11/27/24 Rx meclizine 12.5 mg tablet 12.5 mg PO BID PRN dizziness #60 10/19/24 11/27/24 Rx tabs escitalopram oxalate 5 mg tablet 5 mg PO DAILY 11/27/24 11/27/24 History Past Med/Surg History Problem List (Updated 11/27/24 @ 21:52 by Britany Najera PA-C) Back pain Pneumonia (Acute) Acute confusion (Acute) Episode of unresponsiveness (Acute) Chronic otitis media of left ear with posterior perforation Otitis media 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 Vertigo (Chronic) Hypokalemia Easy bruising Tendency toward bleeding easily Chronic hyponatremia (Acute) Aneurysm of ascending aorta (Acute) Organic impotence (Acute) Leukopenia (Chronic) Hearing loss (Acute) Grief reaction (Acute) Elevated prostate specific antigen (PSA) (Acute) BPH (benign prostatic hyperplasia) (Acute) Hypertension Hyperlipidemia Depression Acute appendicitis Medical History Anxiety Vertigo Cardiac murmur last checked in Dec 2023 per pt BPH (benign prostatic hyperplasia) Aneurysm, ascending aorta ascending thoracic aorta measuring up to 4.8 cm checked 12/2023 (in record) Hearing deficit BILATERAL AIDES 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., NO SURGICAL INTERVENTION) Surgical History Status post colon resection (09/03/22) Laparoscopy, Open Right colon Resection(Not Applicable) - Nasim Rick MD, FACS History of tooth extraction History of laparoscopic appendectomy (07/31/22) Laparoscopic Appendectomy and Abdominal washout(Not Applicable) - Nasim Rick MD, FACS Hx of LASIK History of left cataract surgery (~11/16/18) History of cataract surgery (~10/26/18) RIGHT CATARACT: 2mg of versed and 100mcg of fentanyl was given without apparent complications Family History Sister Stroke Heart disease Asthma Bleeding disorder unknown type Mother Stroke Sister Stroke Shingles Father Lung disease Son Diabetes Grandfather Heart disease Other Hypertension No family history of adverse response to anesthesia Denies family history of Ovarian cancer Prostate cancer Myocardial infarction Breast cancer Colorectal cancer Social History Smoking Status: Never smoker Tobacco Type: Smokeless Tobacco (Dip or Chew) Second Hand Exposure: No; Do You Dip or Chew Tobacco: Yes (advised npo); Hx Alcohol Use: Yes Alcohol type: beer and hard liquor Alcohol Intake Frequency: 4 or More x per/Week Alcohol Intake Frequency Comment: 2-3 beers or shot of yasmine carla per day Hx Substance Use: No Preferred Language: Luxembourgish Communication Ability: Effective Visual Impairment: No Limitations Hearing Ability: Use of Hearing Aid Hot Frame Tender Required: No Beliefs That Will Affect Care: None marital status: Current Living Situation: Spouse current occupational status: retired current occupation: used to work at [employer] How many Children do You have: 1 Feels Safe at Home: Yes Safety Concerns Comment: Stairs in home, fall concerns, spends most of his time in basement Childhood Exposure to Second-Hand Smoke: Yes Diet: regular Diet Comment: primarily gluten free due to his 's diet Dental Care, Regularly: No Physical Activity Frequency: Does not Exercise Seatbelt Use: always Sunscreen Use: No Assistive Devices: Denture - Upper, Glasses and Hearing Aid - Bilateral Review of Systems Review of Systems: All systems reviewed & are unremarkable except as noted in Subjective Physical Exam Physical Exam: General: No acute distress Skin: Warm and dry, without rashes or lesions Head: Normocephalic, atraumatic Eyes: PERRL, conjunctivae clear, sclera non-icteric; EOM intact ENT: External ear and ear canal without swelling; nose atraumatic; fair dentition, tongue normal appearance, pharynx normal without tonsillar swelling or exudate Neck: Supple, no LAD; no JVD Cardio: RRR, systolic murmur LSB, no G/R, S1 and S2 normal Resp: No respiratory distress, mild crackles LLL, otherwise Lungs CTA in all additional lobes bilaterally, no wheezes, rales, or rhonchi Abdomen: Soft, symmetric, nontender; no distention; No masses or hepatosplenomegaly; Bowel sounds normoactive MSK: No deformities, full ROM throughout; pulses palpable and equal; no edema. Neuro: Awake, alert; Muscle strength 5/5 bilaterally in UE/LE; Sensation intact bilaterally; CN intact, no neurological deficits Psych: Appropriate mood and affect; good judgement and insight. Results & Data Results & Data Vital Signs (Past 12 Hours) Vital Signs Temp Pulse Pulse Resp BP BP Pulse Ox 11/27/24 20:00 70 18 117/76 96 11/27/24 18:54 66 11/27/24 18:00 65 16 155/89 H 93 11/27/24 17:11 67 19 132/86 98 11/27/24 16:04 63 35 H 135/74 98 11/27/24 15:37 68 35 H 96 11/27/24 15:09 75 11/27/24 15:05 72 29 H 130/72 94 11/27/24 14:57 36.4 C L 75 30 H 129/81 94 O2 Del Method O2 Flow Rate 11/27/24 20:00 Room Air 11/27/24 18:54 11/27/24 18:00 Room Air 11/27/24 17:11 Nasal Cannula 2 11/27/24 16:04 Nasal Cannula 2 11/27/24 15:37 Nasal Cannula 2 11/27/24 15:09 11/27/24 15:05 Nasal Cannula 2 11/27/24 14:57 Room Air, Nasal Cannula Laboratory Results 11/27/24 11/27/24 11/27/24 Unknown 15:37 15:33 WBC RBC Hgb POC Hgb Hct POC Hct MCV MCH MCHC RDW Std Deviation RDW Coeff of Val Plt Count MPV Immature Gran % (Auto) Neut % (Auto) Lymph % (Auto) Potter % (Auto) Eos % (Auto) Baso % (Auto) Neut # (Auto) Lymph # (Auto) Potter # (Auto) Eos # (Auto) Baso # (Auto) Immature Gran # (Auto) PT INR APTT PTT Ratio VBG pH 7.51 H VBG pCO2 25 L VBG pO2 36 VBG HCO3 20 VBG O2 Saturation 63.9 VBG Base Excess -1.0 POC Sodium Sodium POC Potassium Potassium POC Chloride Chloride Carbon Dioxide POC Total CO2 Anion Gap POC Anion Gap POC BUN BUN Creatinine POC Creatinine Est Cr Clr Drug Dosing eGFR BUN/Creatinine Ratio Glucose POC Glucose POC Glucose (other) Calcium POC Ioniz Calcium Jalen Magnesium Total Bilirubin AST ALT Alkaline Phosphatase Troponin I High Sens B-Natriuretic Peptide Total Protein Albumin Globulin Albumin/Globulin Ratio Urine Color Yellow Urine Appearance Clear Urine pH 6.0 Ur Specific [place] > 1.045 H Urine Protein Trace H Urine Glucose (UA) Negative Urine Ketones 3+ H Urine Blood Negative Urine Nitrite Negative Urine Bilirubin Negative Urine Urobilinogen Negative Ur Leukocyte Esterase Negative Urine WBC (Auto) 0-5 Urine RBC (Auto) 0-2 U Hyaline Cast (Auto) 0-2 U Epithel Cells (Auto) 0-2 Urine Bacteria (Auto) None Seen Urine Opiates Screen Neg Ur Methadone, Qual Neg Urine Fentanyl Screen Neg Urine Barbiturates Neg Ur Phencyclidine (PCP) Neg U Amphetamin/Meth Scrn Neg MDMA (Ecstasy) Screen Neg U Benzodiazepines Scrn Neg Ur Cocaine Metabolite Neg U Marijuana (THC) Screen Neg Adenovirus (PCR) Not Detected B. pertussis DNA (PCR) Not Detected B.parapertussis DNA PCR Not Detected C. pneumoniae DNA (PCR) Not Detected Coronavirus OC43 (PCR) Not Detected Coronavirus HKU1 (PCR) Not Detected Coronavirus 229E (PCR) Not Detected SARS-CoV-2 (PCR) Not Detected Coronavirus NL63 (PCR) Not Detected Human Metapneumovir PCR Not Detected Influenza Type A (PCR) Not Detected Influenza Type B (PCR) Not Detected M. pneumoniae (PCR) Not Detected Parainfluenza 1 (PCR) Not Detected Parainfluenza 2 (PCR) Not Detected Parainfluenza 3 (PCR) Not Detected Parainfluenza 4 (PCR) Not Detected RSV (PCR) Not Detected Entero/Rhino (PCR) Not Detected 11/27/24 11/27/24 11/27/24 15:22 15:00 14:57 WBC 6.16 RBC 5.02 Hgb 16.8 POC Hgb 16.3 Hct 46.9 POC Hct 48 MCV 93.4 MCH 33.5 MCHC 35.8 RDW Std Deviation 42.1 RDW Coeff of Val 12.3 Plt Count 132 MPV 10.3 Immature Gran % (Auto) 1.8 Neut % (Auto) 64.9 Lymph % (Auto) 23.9 Potter % (Auto) 8.6 Eos % (Auto) 0.5 Baso % (Auto) 0.3 Neut # (Auto) 4.00 Lymph # (Auto) 1.47 Potter # (Auto) 0.53 Eos # (Auto) 0.03 Baso # (Auto) 0.02 Immature Gran # (Auto) 0.11 PT 12.3 H INR 1.1 APTT 24 PTT Ratio 0.9 VBG pH VBG pCO2 VBG pO2 VBG HCO3 VBG O2 Saturation VBG Base Excess POC Sodium 136 Sodium 136 POC Potassium 3.6 Potassium 3.8 POC Chloride 105 Chloride 104 Carbon Dioxide 19 L POC Total CO2 18 L Anion Gap 13 H POC Anion Gap 19.0 POC BUN 10 BUN 10 Creatinine 0.88 POC Creatinine 0.8 Est Cr Clr Drug Dosing 69.1 eGFR 86.93 BUN/Creatinine Ratio 11.4 Glucose 116 H POC Glucose 114 H POC Glucose (other) 114 H Calcium 9.1 POC Ioniz Calcium Jalen 1.10 L Magnesium 2.2 Total Bilirubin 1.0 AST 28 ALT 24 Alkaline Phosphatase 53 Troponin I High Sens 7.6 B-Natriuretic Peptide 51 Total Protein 7.0 Albumin 4.2 Globulin 2.8 Albumin/Globulin Ratio 1.5 Urine Color Urine Appearance Urine pH Ur Specific [place] Urine Protein Urine Glucose (UA) Urine Ketones Urine Blood Urine Nitrite Urine Bilirubin Urine Urobilinogen Ur Leukocyte Esterase Urine WBC (Auto) Urine RBC (Auto) U Hyaline Cast (Auto) U Epithel Cells (Auto) Urine Bacteria (Auto) Urine Opiates Screen Ur Methadone, Qual Urine Fentanyl Screen Urine Barbiturates Ur Phencyclidine (PCP) U Amphetamin/Meth Scrn MDMA (Ecstasy) Screen U Benzodiazepines Scrn Ur Cocaine Metabolite U Marijuana (THC) Screen Adenovirus (PCR) B. pertussis DNA (PCR) B.parapertussis DNA PCR C. pneumoniae DNA (PCR) Coronavirus OC43 (PCR) Coronavirus HKU1 (PCR) Coronavirus 229E (PCR) SARS-CoV-2 (PCR) Coronavirus NL63 (PCR) Human Metapneumovir PCR Influenza Type A (PCR) Influenza Type B (PCR) M. pneumoniae (PCR) Parainfluenza 1 (PCR) Parainfluenza 2 (PCR) Parainfluenza 3 (PCR) Parainfluenza 4 (PCR) RSV (PCR) Entero/Rhino (PCR) Diagnostic Findings Chest CTA 11/27/24 15:11 EXAM: CT Angiography Chest Without and With Intravenous Contrast INDICATION: Unresponsive. TECHNIQUE: Axial computed tomographic angiography images of the chest without and with intravenous contrast. Sagittal and coronal reformatted images were created and reviewed. This CT exam was performed using one or more of the following dose reduction techniques: automated exposure control, adjustment of the mA and/or kV according to patient size, and/or use of iterative reconstruction technique. MIP reconstructed images were created and reviewed. CONTRAST: 119ml of Optiray 320 was administered intravenously. COMPARISON: 12/17/2023 FINDINGS: Pulmonary arteries: Artifact limits assessment of the lower lobe pulmonary arterial segments. No visible embolus noted. Aorta: Ectatic aorta with dilated ascending segment to 4.6 cm. Moderate atherosclerosis of the distal arch and descending aorta. No dissection. Lungs and pleural spaces: Respiratory motion limits assessment of the lung taylor. There is patchy groundglass infiltrate in the left upper lobe. There is coarse groundglass left lower lobe infiltrate and bilateral dependent atelectasis. There is dependent atelectasis in both lower lobes. Centrilobular emphysematous changes present. No mass. No significant effusion. No pneumothorax. Heart: Cardiomegaly. No right heart strain or pericardial effusion. Bones/joints: No acute or atypical chronic changes. Soft tissues: No abnormality noted. Lymph nodes: No abnormality noted. No enlarged lymph nodes. IMPRESSION: 1. No aortic dissection or pulmonary embolus noted. Ascending aorta dilated to 4.6 cm. 2. Left upper and lower lobe groundglass infiltrates. Infectious and chemical pneumonitis considered. ACT 112: Negative or not required by law. Electronically signed by Alicia Dan 11-27-2024 5:[address] 11/27/24 15:11 EXAM: CT Head Without Intravenous Contrast INDICATION: Unresponsive. Urinary incontinence. TECHNIQUE: Axial computed tomography images of the head/brain without intravenous contrast. Sagittal and/or coronal reformats are provided. Sagittal and coronal reformatted images were created and reviewed. This CT exam was performed using one or more of the following dose reduction techniques: automated exposure control, adjustment of the mA and/or kV according to patient size, and/or use of iterative reconstruction technique. COMPARISON: 02/10/2021 FINDINGS: Limitations: None. Brain and extra-axial spaces: There is age appropriate cortical atrophy and chronic ischemic periventricular white matter hypodensity. No acute infarct, hemorrhage or mass noted. Bones/joints: No acute changes. Soft tissues: No significant abnormality noted. Vasculature: Atherosclerosis of the intracranial right vertebral and bilateral carotid arteries. Sinuses: No layering fluid in the visualized portions of the paranasal sinuses. Mastoid air cells: No mastoid effusion. Orbits: No significant abnormality noted. IMPRESSION: Cerebral atrophy. No acute changes. ACT 112: Negative or not required by law. Electronically signed by Alicia Dan 11-27-2024 4:27 PM Head CTA 11/27/24 15:11 EXAM: CT Angiography Head With Intravenous Contrast INDICATION: Unresponsive. TECHNIQUE: Axial computed tomographic angiography images of the head with intravenous contrast. Sagittal and coronal reformatted images were created and reviewed. This CT exam was performed using one or more of the following dose reduction techniques: automated exposure control, adjustment of the mA and/or kV according to patient size, and/or use of iterative reconstruction technique. MIP reconstructed images were created and reviewed. CONTRAST: 119ml of Optiray 320 was administered intravenously. COMPARISON: No relevant prior studies available. FINDINGS: Right internal carotid artery: There is mild atherosclerotic plaque in the cavernous right internal carotid artery. No stenosis, aneurysm or dissection. Right anterior cerebral artery: No abnormality noted. No occlusion or significant stenosis. No aneurysm. Right middle cerebral artery: No abnormality noted. No occlusion or significant stenosis. No aneurysm. Right posterior cerebral artery: Incidental origin. No occlusion or significant stenosis. No aneurysm. Right vertebral artery: No significant abnormality noted. Left internal carotid artery: No acute change noted. Intracranial segment is patent with no significant stenosis. No aneurysm. Left anterior cerebral artery: No abnormality noted. No occlusion or significant stenosis. No aneurysm. Left middle cerebral artery: No abnormality noted. No occlusion or significant stenosis. No aneurysm. Left posterior cerebral artery: No abnormality noted. No occlusion or significant stenosis. No aneurysm. Left vertebral artery: No significant abnormality noted. Basilar artery: No abnormality noted. No occlusion or significant stenosis. No aneurysm. IMPRESSION: No significant angiographic abnormality of the brain. ACT 112: Negative or not required by law. Electronically signed by Alicia Dan 11-27-2024 4:27 PM Neck CTA 11/27/24 15:11 EXAM: CT Angiography Neck With Intravenous Contrast INDICATION: Unresponsive. TECHNIQUE: Routine carotid CT angiography protocol was performed with intravenous contrast. NASCET criteria using the distal ICAs for comparison were used for evaluation of stenoses. Sagittal and coronal reformatted images were created and reviewed. This CT exam was performed using one or more of the following dose reduction techniques: automated exposure control, adjustment of the mA and/or kV according to patient size, and/or use of iterative reconstruction technique. MIP reconstructed images were created and reviewed. CONTRAST: 119ml of Optiray 320 was administered intravenously. COMPARISON: None. FINDINGS: VASCULATURE: Right common carotid artery: No abnormality noted. No occlusion or significant stenosis. No dissection. Right internal carotid artery: Mild calcific plaque right carotid bulb and proximal segment without stenosis, aneurysm or dissection. Right external carotid artery: No abnormality noted. No occlusion. Right vertebral artery: No abnormality noted. No occlusion or significant stenosis. No dissection. Left common carotid artery: No abnormality noted. No occlusion or significant stenosis. No dissection. Left internal carotid artery: Mild calcific plaque left carotid bulb and proximal segment without stenosis, aneurysm or dissection. Left external carotid artery: No abnormality noted. No occlusion. Left vertebral artery: No abnormality noted. No occlusion or significant stenosis. No dissection. Brachiocephalic and subclavian arteries: There is moderate atherosclerotic calcification of the left subclavian artery without occlusion, stenosis or dissection. NECK: Bones/joints: No acute or atypical chronic changes. Soft tissues: No abnormality noted. Sinuses: Moderate chronic mucosal thickening right sphenoid sinus. Lung apices: Clear. CAROTID STENOSIS REFERENCE USING NASCET CRITERIA: % ICA stenosis = (1 - narrowest ICA diameter/diameter of distal cervical ICA) x 100. Mild - <50% stenosis. Moderate - 50-69% stenosis. Severe - 70-94% stenosis. Near occlusion - 95-99% stenosis. Occluded - 100% stenosis. IMPRESSION: 1. No significant angiographic abnormality in the neck. 2. Moderate chronic right sphenoid sinusitis. ACT 112: Negative or not required by law. Electronically signed by Alicia Dan 11-27-2024 4:27 PM Chest X-Ray 11/27/24 15:12 EXAM: Radiograph of the Chest 1 View INDICATION: Unresponsive. TECHNIQUE: Frontal view of the chest. COMPARISON: 12/17/2023 FINDINGS: Lungs and pleural spaces: Approximate 2.0 x 1.7 cm infiltrate in the left lung base. No pleural effusion or pneumothorax. Heart: Shape and configuration within normal limits allowing for technique. Mediastinum: Normal contour. Bones/joints: No fracture, erosion or dislocation. Soft tissues: No abnormality noted. No radiopaque foreign body noted. Vasculature: Ectatic calcified aorta. Upper abdomen: No abnormality noted. IMPRESSION: Mild left basilar atelectasis or pneumonia. ACT 112: Negative or not required by law. Electronically signed by Alicia Dan 11-27-2024 4:30 PM Medications Administered Lidocaine 1 patch Fentanyl 50mcg IV Ceftriaxone 2g IV Azithromycin 500mg po Acetaminophen 1g IV ECG Additional Comments: Sinus rhythm w/ 1st degree AV block, PVCs 75bpm, CT 222, QRS 96, QT/QTc 422/471, PRT 40/-26/73 Code Status & VTE Plan Code Status Full VTE Prophylaxis Plan VTE Prophylaxis will be ordered: Yes Supervising Physician Co-Signing Physician Notes Attending addendum: I have physically seen this patient, have supervised the SALTY's activities, and agree with the H&P unless as otherwise noted. Assessment and Plan: The patient is a 78-year-old male with past medical history including, cytopenia, carcinoma, appendix, chronic hyponatremia, ascending aortic aneurysm, BPH with LUTS, hypertension, hyperlipidemia, and depression. To the emergency department with confusion, and does not remember time from taking a nap in his recliner, until waking up in the ambulance en route to the hospital. #Pneumonia- Chest x-ray with left lower lobe infiltrate and noted mild hypoxia with improvement on nasal cannula oxygen CTA chest notes left upper and left lower groundglass infiltrates Flutter valve and incentive spirometry Empiric ceftriaxone 2 g IV daily Azithromycin 500 milligrams p.o. daily DuoNebs every 2 hours as needed Sputum Gram stain and culture Mucinex 60 mg p.o. every 12 hours #Unresponsive episode- No associated neurologic symptoms CT scan head, CTA head and neck negative CTA chest confirms previous ascending aortic aneurysm stable at 4.6 cm Suspect likely secondary to physiologic stress of pneumonia and mild hypoxia #Acute back pain- Imaging negative for acute findings Lidocaine patch and acetaminophen as noted PT/OT consults as needed Chronic medical issues: Ascending thoracic aortic aneurysm 4.6 cm on imaging, noted to be stable Depression-continue escitalopram Hypertension- Continue losartan PG Care Time/CCT Total # of Minutes Spent Total Time Spent with Patient: Total time spent is greater than 50% in coordination of care (as documented) at patient's floor/unit and/or counseling patient: Coding Level of Care Code 99656 INT INP/OBS CARE MIN Diagnoses Pneumonia J18.9 Episode of unresponsiveness R40.4 Back pain M54.9
[2024-11-27] MEDS ORDERED: LIDOCAINE 5% 1 PATCH TD PRN (23:09)
[2024-11-27] MEDS ORDERED: MECLIZINE 12.5 MG TAB PO PRN (23:09)
[2024-11-28] MEDS: ACETAMINOPHEN 325 MG TAB PO PRN (01:13)
[2024-11-28] MEDS: TROLAMINE SALICYLATE 10% CRM 255 APPLN/85 GM TUBE EXT PRN (01:13)
[2024-11-28] MEDS: ENOXAPARIN INJ 40 MG/0.4 ML SYR SQ SCH (01:13)
[2024-11-28] MEDS: AZITHROMYCIN 250 MG TAB PO SCH (09:15)
[2024-11-28] MEDS: ESCITALOPRAM OXALATE 10 MG TAB PO SCH (09:15)
[2024-11-28] MEDS: VALSARTAN 80 MG TAB PO SCH (09:15)
--- NOTE | 2024-11-28 10:23 | Hospitalist Progress Note ---
Date of Service November 28, 2024 Assessment & Plan (1) Pneumonia: Plan: -on rocephin/zithromax -duonebs prn (2) Episode of unresponsiveness: Plan: -possible syncope -echo -cardiology consulted (3) Back pain: Plan: Lidocaine patch, acetaminophen Plan D/C home once syncope work up completed. Dispo: Admit med/tele VTE prophylaxis: Lovenox Admission and Anticipated Discharge Date Admission Date: November 27, 2024 Subjective No events overnight. Pt resting comfortably in bed. Review of Systems Review of Systems: CONST: Negative for fever, body aches and chills. HENT: Negative for neck pain/stiffness, headache, congestion, sore throat, swelling. EYES: Negative for discharge/pain or vision changes. RESP: Negative for cough/hemoptysis and shortness of breath. CV: Negative chest pain, difficulty breathing, palpitations. ABD: Negative pain, nausea, vomiting. : Negative increase frequency, dysuria, blood in urine or stool. MUSC: Negative for muscle aches, edema. SKIN: Negative rash, lesions/sores. NEURO: Negative headache, dizziness, weakness. Physical Exam Physical Exam: GENERAL APPEARANCE NAD, activity normal for age, well developed/ well nourished, no cyanosis, pallor, or diaphoresis. EYES lids/conjunctiva normal. EARS/NOSE/THROAT Mucous membranes moist, nares normal, lips/teeth normal uvula midline without oral pharyngeal erythema, exudate or swelling TMs normal bilaterally. No lymphangitis/lymphedema. HEAD/NECK normocephalic atraumatic, no facial trauma, neck is supple. RESPIRATORY respiratory effort normal, speaks in full sentences, no tripod position, no accessory muscle use. Lungs clear to auscultation without rhonchi, wheezes, rales CARDIAC Regular rate and rhythm, no edema. ABDOMINAL Soft, ND/NT. No evidence of fluid wave. No pulsatile masses on exam, rebound tenderness, Ta sign or pain over Mcburney's point. MUSCLES/EXTREMITIES No abnormal range of motion, no swelling. SKIN Warm, pink and dry. No rashes, dermatoses, petechiae or lesions. NEUROLOGICAL Speech is clear and appropriate. Normal level of consciousness. Gait and coordination are normal. 5/5 strength in all extremities. PSYCH Normal mood and affect. Judgement/competence is appropriate Results & Data Results & Data Vital Signs (Past 12 Hours) Vital Signs Temp Pulse Pulse Pulse Resp BP BP 11/28/24 08:17 36.7 C 49 L 18 145/74 H 11/28/24 07:28 46 L 11/28/24 06:22 36.7 C 54 L 12 141/81 H 11/28/24 05:46 11/28/24 05:33 55 L 15 11/28/24 05:00 64 16 126/65 11/28/24 04:29 11/28/24 04:12 48 L 16 11/28/24 03:24 57 L 17 11/28/24 03:00 51 L 15 11/28/24 02:27 53 L 18 11/28/24 02:23 58 L 17 132/75 11/28/24 02:00 58 L 15 151/82 H 11/28/24 01:43 63 17 140/64 11/28/24 00:55 58 L 17 118/59 L Pulse Ox O2 Del Method O2 Flow Rate 11/28/24 08:17 91 Nasal Cannula 2 11/28/24 07:28 11/28/24 06:22 93 Nasal Cannula 2 11/28/24 05:46 Room Air 11/28/24 05:33 95 Room Air 11/28/24 05:00 94 Room Air 11/28/24 04:29 94 Nasal Cannula 2 11/28/24 04:12 89 L Room Air 11/28/24 03:24 91 Room Air 11/28/24 03:00 91 Room Air 11/28/24 02:27 91 Room Air 11/28/24 02:23 93 Room Air 11/28/24 02:00 94 Room Air 11/28/24 01:43 96 Nasal Cannula 2 11/28/24 00:55 92 Nasal Cannula 2 PG Care Time/CCT Total # of Minutes Spent Total Time Spent with Patient: Total time spent is greater than 50% in coordination of care (as documented) at patient's floor/unit and/or counseling patient: Coding Level of Care Code 84204 SUB INP/OBS CARE 2/35MIN Diagnoses Pneumonia J18.9 Episode of unresponsiveness R40.4 Back pain M54.9
--- NOTE | 2024-11-28 11:12 | XCELERA ---
[id number]
--- NOTE | 2024-11-28 11:13 | Cardiology Consultation ---
Date of Consultation November 28, 2024 Assessment & Plan (1) Episode of unresponsiveness: (2) Aneurysm of ascending aorta: (3) Hypertension: Plan ASSESSMENT/PLAN: 1. Unresponsiveness: Etiology unclear. Recommend 30-day event monitor and follow-up in the outpatient setting. No significant findings on telemetry to suggest an episode of unresponsiveness or syncope. Avoid driving, which was discussed with patient and his . Continue to evaluate for noncardiac causes through the hospitalist service. Given that he continued to appear confused/disoriented when he became more responsive, would think that this is less likely arrhythmia related. 2. Thoracic aortic aneurysm: We discussed the finding. It was noted on CTA and echo and correlated well. Avoid strenuous lifting for which the Valsalva maneuver is required. Continue ARB. No beta-jayant given sinus bradycardia. Statin therapy would be reasonable if he is agreeable. Annual surveillance. 3. Hypertension: Blood pressure has been mostly normotensive and at times mildly hypertensive. Continue home ARB. Further adjustments can be made if necessary. 4. Alcohol consumption: Recommended that he reduce his alcohol intake to no more than 1 or 2 drinks per day. 5. Pneumonia: As per primary hospitalist service. 6. Back pain: No aortic dissection noted on CT imaging by radiology and on personal review. Further evaluation/treatment as per primary hospitalist service. 7. Disposition: Will arrange for outpatient 30-day event monitor and a 2-month follow-up with cardiology so that the 30-day event monitor can be completed before follow-up. Thank you for allowing me to participate in the care of your patient. Please call for any other questions or concerns. Sincerely, Ger Saleh M.D. History of Present Illness Reason for Consultation: syncope Requesting Physician: Brien Oropeza MD Attending Physician: Brien Oropeza MD History of Present Illness Mr. Harris is an 78-year-old gentleman with a history significant for ascending aortic aneurysm, hypertension, and dyslipidemia. He was admitted on 11/27/2024 after an episode of unresponsiveness. History was obtained by speaking with both the patient and his who was present at the bedside. His states that he informed her that he was going to take a nap. She then heard a noise and found him in a recliner, unresponsive. He was breathing deeply. His eyes were open and staring to 1 side. She called 911. EMS arrived and he was starting to wake up but still confused and staring to some degree. This has never happened before. He does not recall any palpitations, chest pain, or shortness of breath. He does have back pain which is new. It has improved since presentation but still remains. It is mostly in the middle of his back and radiating downward. He denies edema, palpitations, chest pain, melena, hematochezia, or hematuria. He consumes alcohol daily but reports no significant alcohol consumption just prior to his event. On presentation, he underwent multiple imaging studies including CTA of the neck, CTA of the head, CTA of the chest. He was found to have an ascending aortic aneurysm but no dissection and no pulmonary embolism. Review of systems: As above. Family history: Noncontributory. Social history: Denies smoking. Consumes approximately 3 alcoholic beverages daily. Lives at home with his . Had 4 children but a son has since . Grandchildren. His was present at the bedside. Allergies Allergy/AdvReac Type Severity Reaction Status Date / Time lisinopril Allergy Intermediate Cough Verified 02/10/24 10:29 simvastatin Allergy Unknown CAN'T Verified 02/10/24 10:29 REMEMBER Home Medications Medication Instructions Recorded Confirmed Type valsartan 320 mg tablet 320 mg PO DAILY #90 tabs 02/16/24 11/27/24 Rx meclizine 12.5 mg tablet 12.5 mg PO BID PRN dizziness #60 10/19/24 11/27/24 Rx tabs escitalopram oxalate 5 mg tablet 5 mg PO DAILY 11/27/24 11/27/24 History Problem List Back pain Pneumonia (Acute) Acute confusion (Acute) Episode of unresponsiveness (Acute) Chronic otitis media of left ear with posterior perforation Otitis media 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 Vertigo (Chronic) Hypokalemia Easy bruising Tendency toward bleeding easily Chronic hyponatremia (Acute) Aneurysm of ascending aorta (Acute) Organic impotence (Acute) Leukopenia (Chronic) Hearing loss (Acute) Grief reaction (Acute) Elevated prostate specific antigen (PSA) (Acute) BPH (benign prostatic hyperplasia) (Acute) Hypertension Hyperlipidemia Depression Acute appendicitis Patient History Medical History Anxiety Vertigo Cardiac murmur last checked in Dec 2023 per pt BPH (benign prostatic hyperplasia) Aneurysm, ascending aorta ascending thoracic aorta measuring up to 4.8 cm checked 12/2023 (in record) Hearing deficit BILATERAL AIDES 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., NO SURGICAL INTERVENTION) Surgical History Status post colon resection (09/03/22) Laparoscopy, Open Right colon Resection(Not Applicable) - Nasim Rick MD, FACS History of tooth extraction History of laparoscopic appendectomy (07/31/22) Laparoscopic Appendectomy and Abdominal washout(Not Applicable) - Nasim Rick MD, FACS Hx of LASIK History of left cataract surgery (~11/16/18) History of cataract surgery (~10/26/18) RIGHT CATARACT: 2mg of versed and 100mcg of fentanyl was given without apparent complications Family History Sister Stroke Heart disease Asthma Bleeding disorder unknown type Mother Stroke Sister Stroke Shingles Father Lung disease Son Diabetes Grandfather Heart disease Other Hypertension No family history of adverse response to anesthesia Denies family history of Ovarian cancer Prostate cancer Myocardial infarction Breast cancer Colorectal cancer Social History Smoking Status: Never smoker Tobacco Type: Smokeless Tobacco (Dip or Chew) Second Hand Exposure: No; Do You Dip or Chew Tobacco: No; Hx Alcohol Use: Yes Alcohol type: beer Alcohol Intake Frequency: 4 or More x per/Week Alcohol Intake Frequency Comment: 2-3 beers or shot of yasmine carla per day Hx Substance Use: No Preferred Language: Serbian Communication Ability: Effective Visual Impairment: No Limitations Hearing Ability: Use of Hearing Aid Barrel Straightener Required: No Beliefs That Will Affect Care: None marital status: Current Living Situation: Spouse current occupational status: retired current occupation: used to work at [employer] How many Children do You have: 1 Feels Safe at Home: Yes Safety Concerns Comment: Stairs in home, fall concerns, spends most of his time in basement Childhood Exposure to Second-Hand Smoke: Yes Diet: regular Diet Comment: primarily gluten free due to his 's diet Dental Care, Regularly: No Physical Activity Frequency: Does not Exercise Seatbelt Use: always Sunscreen Use: No Assistive Devices: Hearing Aid - Right Physical Exam Physical Exam: Gen.: No acute distress. Alert. HEENT: Anicteric sclera. Neck: No JVD. No bruits. Normal carotid upstrokes bilaterally. Cardiac: Regular with ectopy. Normal S1-S2. No murmurs, rubs, or gallops. Pulmonary: Clear to auscultation bilaterally without wheezes, rales, or rhonchi. Abdomen: Soft, nontender, nondistended, with normoactive bowel sounds. No bruits noted. Extremities: 2+ radial pulses bilaterally. 2+ posterior tibialis pulses bilaterally. No edema or cyanosis. Results & Data Vital Signs (Past 12 Hours) Vital Signs Temp Pulse Pulse Pulse Resp BP BP 11/28/24 08:17 36.7 C 49 L 18 145/74 H 11/28/24 08:00 11/28/24 07:28 46 L 11/28/24 06:22 36.7 C 54 L 12 141/81 H 11/28/24 05:46 11/28/24 05:33 55 L 15 11/28/24 05:00 64 16 126/65 11/28/24 04:29 11/28/24 04:12 48 L 16 11/28/24 03:24 57 L 17 11/28/24 03:00 51 L 15 11/28/24 02:27 53 L 18 11/28/24 02:23 58 L 17 132/75 11/28/24 02:00 58 L 15 151/82 H 11/28/24 01:43 63 17 140/64 11/28/24 00:55 58 L 17 118/59 L Pulse Ox O2 Del Method O2 Flow Rate 11/28/24 08:17 91 Nasal Cannula 2 11/28/24 08:00 Nasal Cannula 2 11/28/24 07:28 11/28/24 06:22 93 Nasal Cannula 2 11/28/24 05:46 Room Air 11/28/24 05:33 95 Room Air 11/28/24 05:00 94 Room Air 11/28/24 04:29 94 Nasal Cannula 2 11/28/24 04:12 89 L Room Air 11/28/24 03:24 91 Room Air 11/28/24 03:00 91 Room Air 11/28/24 02:27 91 Room Air 11/28/24 02:23 93 Room Air 11/28/24 02:00 94 Room Air 11/28/24 01:43 96 Nasal Cannula 2 11/28/24 00:55 92 Nasal Cannula 2 Laboratory Results Laboratory Results - last 24 hr 11/27/24 11/27/24 11/27/24 14:57 15:00 15:22 WBC 6.16 RBC 5.02 Hgb 16.8 POC Hgb 16.3 Hct 46.9 POC Hct 48 MCV 93.4 MCH 33.5 MCHC 35.8 RDW Std Deviation 42.1 RDW Coeff of Val 12.3 Plt Count 132 MPV 10.3 Immature Gran % (Auto) 1.8 Neut % (Auto) 64.9 Lymph % (Auto) 23.9 [place] % (Auto) 8.6 Eos % (Auto) 0.5 Baso % (Auto) 0.3 Neut # (Auto) 4.00 Lymph # (Auto) 1.47 [place] # (Auto) 0.53 Eos # (Auto) 0.03 Baso # (Auto) 0.02 Immature Gran # (Auto) 0.11 PT 12.3 H INR 1.1 APTT 24 PTT Ratio 0.9 VBG pH VBG pCO2 VBG pO2 VBG HCO3 VBG O2 Saturation VBG Base Excess POC Sodium 136 Sodium 136 POC Potassium 3.6 Potassium 3.8 POC Chloride 105 Chloride 104 Carbon Dioxide 19 L POC Total CO2 18 L Anion Gap 13 H POC Anion Gap 19.0 POC BUN 10 BUN 10 Creatinine 0.88 POC Creatinine 0.8 Est Cr Clr Drug Dosing 69.1 eGFR 86.93 BUN/Creatinine Ratio 11.4 Glucose 116 H POC Glucose 114 H POC Glucose (other) 114 H Calcium 9.1 POC Ioniz Calcium Jalen 1.10 L Magnesium 2.2 Total Bilirubin 1.0 AST 28 ALT 24 Alkaline Phosphatase 53 Troponin I High Sens 7.6 B-Natriuretic Peptide 51 Total Protein 7.0 Albumin 4.2 Globulin 2.8 Albumin/Globulin Ratio 1.5 Urine Color Urine Appearance Urine pH Ur Specific [place] Urine Protein Urine Glucose (UA) Urine Ketones Urine Blood Urine Nitrite Urine Bilirubin Urine Urobilinogen Ur Leukocyte Esterase Urine WBC (Auto) Urine RBC (Auto) U Hyaline Cast (Auto) U Epithel Cells (Auto) Urine Bacteria (Auto) Urine Opiates Screen Ur Methadone, Qual Urine Fentanyl Screen Urine Barbiturates Ur Phencyclidine (PCP) U Amphetamin/Meth Scrn MDMA (Ecstasy) Screen U Benzodiazepines Scrn Ur Cocaine Metabolite U Marijuana (THC) Screen Adenovirus (PCR) B. pertussis DNA (PCR) B.parapertussis DNA PCR C. pneumoniae DNA (PCR) Coronavirus OC43 (PCR) Coronavirus HKU1 (PCR) Coronavirus 229E (PCR) SARS-CoV-2 (PCR) Coronavirus NL63 (PCR) Human Metapneumovir PCR Influenza Type A (PCR) Influenza Type B (PCR) M. pneumoniae (PCR) Parainfluenza 1 (PCR) Parainfluenza 2 (PCR) Parainfluenza 3 (PCR) Parainfluenza 4 (PCR) RSV (PCR) Entero/Rhino (PCR) 11/27/24 11/27/24 11/27/24 15:33 15:37 Unknown WBC RBC Hgb POC Hgb Hct POC Hct MCV MCH MCHC RDW Std Deviation RDW Coeff of Val Plt Count MPV Immature Gran % (Auto) Neut % (Auto) Lymph % (Auto) [place] % (Auto) Eos % (Auto) Baso % (Auto) Neut # (Auto) Lymph # (Auto) [place] # (Auto) Eos # (Auto) Baso # (Auto) Immature Gran # (Auto) PT INR APTT PTT Ratio VBG pH 7.51 H VBG pCO2 25 L VBG pO2 36 VBG HCO3 20 VBG O2 Saturation 63.9 VBG Base Excess -1.0 POC Sodium Sodium POC Potassium Potassium POC Chloride Chloride Carbon Dioxide POC Total CO2 Anion Gap POC Anion Gap POC BUN BUN Creatinine POC Creatinine Est Cr Clr Drug Dosing eGFR BUN/Creatinine Ratio Glucose POC Glucose POC Glucose (other) Calcium POC Ioniz Calcium Jalen Magnesium Total Bilirubin AST ALT Alkaline Phosphatase Troponin I High Sens B-Natriuretic Peptide Total Protein Albumin Globulin Albumin/Globulin Ratio Urine Color Yellow Urine Appearance Clear Urine pH 6.0 Ur Specific [place] > 1.045 H Urine Protein Trace H Urine Glucose (UA) Negative Urine Ketones 3+ H Urine Blood Negative Urine Nitrite Negative Urine Bilirubin Negative Urine Urobilinogen Negative Ur Leukocyte Esterase Negative Urine WBC (Auto) 0-5 Urine RBC (Auto) 0-2 U Hyaline Cast (Auto) 0-2 U Epithel Cells (Auto) 0-2 Urine Bacteria (Auto) None Seen Urine Opiates Screen Neg Ur Methadone, Qual Neg Urine Fentanyl Screen Neg Urine Barbiturates Neg Ur Phencyclidine (PCP) Neg U Amphetamin/Meth Scrn Neg MDMA (Ecstasy) Screen Neg U Benzodiazepines Scrn Neg Ur Cocaine Metabolite Neg U Marijuana (THC) Screen Neg Adenovirus (PCR) Not Detected B. pertussis DNA (PCR) Not Detected B.parapertussis DNA PCR Not Detected C. pneumoniae DNA (PCR) Not Detected Coronavirus OC43 (PCR) Not Detected Coronavirus HKU1 (PCR) Not Detected Coronavirus 229E (PCR) Not Detected SARS-CoV-2 (PCR) Not Detected Coronavirus NL63 (PCR) Not Detected Human Metapneumovir PCR Not Detected Influenza Type A (PCR) Not Detected Influenza Type B (PCR) Not Detected M. pneumoniae (PCR) Not Detected Parainfluenza 1 (PCR) Not Detected Parainfluenza 2 (PCR) Not Detected Parainfluenza 3 (PCR) Not Detected Parainfluenza 4 (PCR) Not Detected RSV (PCR) Not Detected Entero/Rhino (PCR) Not Detected Diagnostic Findings ECHO 11/28/2024: 1. Normal left ventricular size and systolic function. EF 60-65%. No regional wall motion abnormalities. Mild concentric left ventricular hypertrophy. 2. Mild aortic regurgitation. 3. Mild mitral regurgitation. 4. Mildly dilated aortic root; 4.2 cm. 5. Dilated ascending aorta; 4.7 cm. 6. Normal estimated right ventricular systolic pressure. 7. No significant change from prior study on 08/01/2022. Labs reviewed and notable for normal high-sensitivity troponin x 1, normal BNP, normal potassium, normal renal function, normal magnesium, normal transaminase levels, normal blood counts. ECG personally reviewed 11/27/2024 at 1454: Sinus rhythm with first-degree AV block and PVCs. [address] abnormality. History and physical report reviewed. CTA neck 11/27/2024: No significant angiographic abnormality per radiology. Head CTA 11/27/2024: No significant angiographic abnormality of the brain per radiology. CTA chest 11/27/2024: No aortic dissection or pulmonary embolism. Ascending aorta 4.6 cm. Left upper and lower lobe groundglass infiltrates. Infectious and chemical pneumonitis considered per radiology. Chest x-ray 11/27/2024: Mild left basilar atelectasis or pneumonia per radiology. Image personally reviewed. No significant pulmonary vascular congestion. Telemetry personally reviewed: Sinus rhythm in the 60s when evaluated today. PVCs noted. Overnight, sinus bradycardia in the 40s to 50s. There were no significant pauses. Medications Administered Current Inpatient Medications Acetaminophen (Acetaminophen 325 Mg Tab) 650 mg PO Q6H PRN PRN Reason: Pain & Pre PT Stop: 12/27/24 23:08 Last Admin: 11/28/24 09:19 Dose: 650 mg Azithromycin (Azithromycin 250 Mg Tab) 500 mg PO QAM ABEL Stop: 12/03/24 08:59 Last Admin: 11/28/24 09:15 Dose: 500 mg Enoxaparin Sodium (Enoxaparin Inj 40 Mg/0.4 Ml Syr) 40 mg SQ Q24H ABEL Stop: 12/27/24 23:08 Last Admin: 11/28/24 01:13 Dose: 40 mg Escitalopram Oxalate (Escitalopram Oxalate 10 Mg Tab) 10 mg PO DAILY ABEL Stop: 12/28/24 08:59 Last Admin: 11/28/24 09:15 Dose: 10 mg Ceftriaxone Sodium (Rocephin) 2,000 mg in 50 mls @ 100 mls/hr IV Q24H ABEL Stop: 12/03/24 19:59 Lidocaine (Lidocaine 5% 1 Patch) 1 patch TD QAM PRN PRN Reason: back pain Stop: 12/27/24 23:08 Meclizine HCl (Meclizine 12.5 Mg Tab) 12.5 mg PO BID PRN PRN Reason: dizziness Stop: 12/27/24 23:08 Miscellaneous (Remove Lidoderm Patch) 1 each N/A DAILY@2100 ABEL Stop: 12/28/24 20:59 Trolamine Salicylate (Trolamine Salicylate 10% Crm 255 Appln/85 Gm Tube) 1 appln EXT TID PRN PRN Reason: Pain Stop: 12/27/24 21:53 Last Admin: 11/28/24 01:13 Dose: 1 appln Valsartan (Valsartan 80 Mg Tab) 320 mg PO DAILY ABEL Stop: 12/28/24 08:59 Last Admin: 11/28/24 09:15 Dose: 320 mg PG Care Time/CCT Total # of Minutes Spent Total Time Spent with Patient: Total time spent is greater than 50% in coordination of care (as documented) at patient's floor/unit and/or counseling patient: Coding Level of Care Code 54639 INT INP/OBS CARE 3/75MIN Diagnoses Episode of unresponsiveness R40.4 Aneurysm of ascending aorta I71.2 Hypertension I10
[2024-11-28] MEDS: cefTRIAXone SODIUM 2,000 MG/50 ML BAG IV SCH (20:39)
--- NOTE | 2024-11-29 06:33 | Electrocardiogram Report ---
Test Reason : Blood Pressure : */* mmHG Vent. Rate : 75 BPM Atrial Rate : 75 BPM P-R Int : 222 ms QRS Dur : 96 ms QT Int : 422 ms P-R-T Axes : 40 -26 73 degrees QTcB Int : 471 ms Sinus rhythm with 1st degree A-V block with occasional Premature ventricular complexes Incomplete right bundle branch block Nonspecific ST abnormality Abnormal ECG When compared with ECG of 31-Jul-2022 14:04, Premature ventricular complexes are now Present SC interval has increased Incomplete right bundle branch block is now Present QT has lengthened Confirmed by Puneet Saleh ([id number] on 11/29/2024 6:32:48 AM Referred By: Confirmed By: Puneet Saleh
[2024-11-29 06:41] LABS: Hematocrit (blood only) 44.1 % (42.0-52.0); Hemoglobin 15.5 g/dl (14.0-18.0); Mean Corpuscular Hemoglobin 33.8 pg (25.0-34.0); Mean Corpuscular Hgb Conc 35.1 g/dL (32.0-36.0); Mean Corpuscular Volume 96.1 fL (80.0-100.0); Mean Platelet Volume 10.5 fL (9.4-12.4); Platelet Count 111 K/uL (130-400); RDW Coefficient of Variation 12.6 % (11.5-14.5); RDW Standard Deviation 44.9 fL (36.4-46.3); Red Blood Count 4.59 M/uL (4.70-6.10); White Blood Count 5.23 K/ul (4.8-10.8)
[2024-11-29 07:01] LABS: BUN Creatinine Ratio 16.2 (10-20); Calcium 8.7 mg/dl (8.6-10.3); Creatinine Clr Calc Pharmacy 82.2 ml/min; Potassium 3.7 mmol/L (3.5-5.1)
[2024-11-29 07:53] VITALS: BP 171/94; RESP 16; TEMP 98.4; O2SAT 90
--- NOTE | 2024-11-29 10:48 | Discharge Summary ---
Discharge Summary Date of Service November 29, 2024 Principal Dx & Hospital Course #1 = Principal Diagnosis (1) Pneumonia: -on rocephin/zithromax -duonebs prn (2) Episode of unresponsiveness: -possible syncope -echo -cardiology consult appreciated -recommending out patient 30 day event monitor (3) Back pain: Lidocaine patch, acetaminophen Plan D/C home once syncope work up completed. Dispo: Admit med/tele VTE prophylaxis: Lovenox Admission HPI Per Admitting Provider 78-year-old male PMHx vertigo, BPH, AAA, h/o carcinoma of appendix (2021), and anxiety presenting to ED via EMS following an unresponsive episode as noted per . States he awoke at 0600 feeling completely fine and went about daily activities. A few hours later he went downstairs and went to take a nap in his recliner. Patient had no abnormal sensation or symptoms prior to taking a nap in the next and he remembers is waking up in the ambulance being confused as to why he was in the ambulance. His helps to provide history. States that she recalls the patient going downstairs to take a nap and within a 5-minute timeframe he had made an odd noise. She had called down but patient did not respond. When she approached the patient, she recalls that he was staring off to the right and taking very deep breaths. He was not coming to even when she was speaking loudly to him and shaking him. She states that he has slowly come out of this episode within a few seconds but still seemed off. Does not believe that he was incontinent of bladder but notes that he was sweating an excessive amount at this time. Did not notice any seizure-like activity. Patient's only complaint at this time is back pain that is centralized from the level of his shoulder blades down to his tailbone, stating that it is sharp and "severe". He was planning snow yesterday but was doing so through a motorized vehicle. Does not recall any additional injury and pain does not radiate to his neck. Does have occasional coughing at nighttime, this is normal for the patient. Of note, patient has a pellet stove as well as a bucket of water that has apparently been sitting around for an extended amount of time which he uses to help the basement from getting dry. Pt unsure how long the water has been stagnant. Patient denying additional symptoms to include chest pain, shortness of breath, palpitations, abdominal pain, N/V/D/C, numbness/tingling, dizziness, weakness, LUTS, or fever/chills. States that he has been taking his medication as prescribed and denies illicit drug use. Drinks approximately 2-3 beers per day the past 4 years. No history of withdrawal. No history of seizures. Patient took all his medications today. Please see Dr. Ruth's attestation for adjustments/additions to treatment plan. Discharge Exam GENERAL APPEARANCE NAD, activity normal for age, well developed/ well nourished, no cyanosis, pallor, or diaphoresis. EYES lids/conjunctiva normal. EARS/NOSE/THROAT Mucous membranes moist, nares normal, lips/teeth normal uvula midline without oral pharyngeal erythema, exudate or swelling TMs normal bilaterally. No lymphangitis/lymphedema. HEAD/NECK normocephalic atraumatic, no facial trauma, neck is supple. RESPIRATORY respiratory effort normal, speaks in full sentences, no tripod position, no accessory muscle use. Lungs clear to auscultation without rhonchi, wheezes, rales CARDIAC Regular rate and rhythm, no edema. ABDOMINAL Soft, ND/NT. No evidence of fluid wave. No pulsatile masses on exam, rebound tenderness, Ta sign or pain over Mcburney's point. MUSCLES/EXTREMITIES No abnormal range of motion, no swelling. SKIN Warm, pink and dry. No rashes, dermatoses, petechiae or lesions. NEUROLOGICAL Speech is clear and appropriate. Normal level of consciousness. Gait and coordination are normal. 5/5 strength in all extremities. PSYCH Normal mood and affect. Judgement/competence is appropriate Discharge Plan Discharge Items Reason For Visit: PNA, SYNCOPAL EPISODE Discharge Diagnosis: PNA, syncope Activity: Resume your previous activity Non-emergency contact: Primary Care Provider Call non-emergency contact if: you have any medication questions Follow-up/Referrals: Berny Rubio DO [Primary Care Provider] - Diet: Regular Addtl Attending Provider Instructions: Follow up with Cardiology for out patient event monitor Pending Studies at Discharge: No Medications and DC Order Prescriptions: New azithromycin 250 mg Tablet 500 mg PO QAM Qty: 5 0RF Continued meclizine 12.5 mg tablet 12.5 mg PO BID PRN (Reason: dizziness) Qty: 60 1RF Rx Instructions: only take when dizzy valsartan 320 mg tablet 320 mg PO DAILY Qty: 90 3RF escitalopram oxalate 5 mg tablet 5 mg PO DAILY Admission Data Admit Date/Time: 11/27/24 21:08 Attending Provider: Brien Oropeza Admit Provider: Lenard Ruth Primary Care Provider: Berny Rubio Other Providers: Lenard Ruth; Puneet Saleh Hospital Stay Data Consultations 11/27/24 19:34 ED Decision to Admit Stat 11/28/24 07:39 Consult Cardiology Routine Diagnostic Imagining Performed 11/27/24 15:11 CT head/brain wo con Stat CTA chest dissec wo/w con [CT angio chest dissec wo/w con] Stat CTA head w con [CT angio head w con] Stat CTA neck with con [CT angio neck with con] Stat Pending Results Patient Have Any Pending Studies at Discharge: No Discharge Instructions Given to Patient (Per Discharging Provider) Follow up with Cardiology for out patient event monitor Total Time Total Time Spent Total Time Spent (In Minutes): 50 Coding Level of Care Code 43283 INP/OBS DISCH >30 MIN Diagnoses Pneumonia J18.9 Episode of unresponsiveness R40.4 Back pain M54.9
[2024-11-29 11:04] VITALS: PULSE 58
== END 2024-11-29 12:22 | disposition home or self-care (01) | DRG 195 ==
LOC: ED 14:44 → EDINP 21:08 → SUATTDRO 21:08 → 2N 23:11